=== PATIENT | male | born 1950 | race Caucasian/White ===

== ENCOUNTER 2017-08-09 03:55 | Inpatient (IN) | payer OTHER, MEDICAID ==
--- NOTE | 2017-08-09 04:25 | C.PDOC ---
History Of Present Illness The patient presents to the ED via EMS for evaluation of generalized weakness which began a few days ago. Patient states he was discharged from [facility] a few days ago. Patient states he was trying to get himself off of his couch but felt weak and lowered himself onto the floor instead. Patient was unable to get up and stayed on the floor for one day. Patient denies LOC, fever, chills, chest pain, abdominal pain. Patient has PMHx of Lung Cancer. Time Seen by Provider: 08/09/17 04:24 Chief Complaint (Nursing): Weakness/Neurological Deficit History Per: Patient, EMS History/Exam Limitations: no limitations Onset/Duration Of Symptoms: Days Current Symptoms Are (Timing): Still Present Activity At Onset Of Symptoms: Sitting Associated Symptoms Preceding Syncopal Episode: No Predromal Symptoms (Sudden Onset) Seizure Or Post-ictal Symptoms: None Fall Associated With With Symptoms: No Severity: Mild Pain Scale Rating Of: 2 Recent travel outside of the [place]: No Additional History Per: Patient, EMS - Symptoms Of CVA Recent Aspirin Use: No Current Coumadin Use?: No Recent Head Trauma: No Past Medical History Reviewed: Historical Data, Nursing Documentation, Vital Signs Vital Signs: Last Vital Signs Temp 97.6 F 08/09/17 04:14 Pulse 99 H 08/09/17 04:14 Resp 18 08/09/17 04:14 BP 82/61 L 08/09/17 04:14 Pulse Ox 97 08/09/17 05:11 - Medical History PMH: CHF Surgical History: No Surg Hx Family History: States: Unknown Family Hx - Social History Hx Alcohol Use: No Hx Substance Use: No - Immunization History Hx Tetanus Toxoid Vaccination: No Hx Influenza Vaccination: Yes Hx Pneumococcal Vaccination: No Review Of Systems Constitutional: Positive for: Weakness. Negative for: Fever, Chills Eyes: Negative for: Redness ENT: Negative for: Throat Pain Cardiovascular: Negative for: Chest Pain, Palpitations Respiratory: Negative for: Cough, Shortness of Breath Gastrointestinal: Negative for: Nausea, Vomiting, Abdominal Pain Genitourinary: Negative for: Dysuria Musculoskeletal: Negative for: Back Pain Skin: Negative for: Rash, Lesions, Jaundice, Bruising Neurological: Positive for: Weakness. Negative for: Altered Mental Status, Headache, Dizziness Psych: Negative for: Anxiety, Depression Physical Exam - Physical Exam Appears: Non-toxic, Unkempt Skin: Warm, Dry, Pale Head: Normacephalic Eye(s): bilateral: Normal Inspection Oral Mucosa: Dry Neck: Trachea Midline, Supple Chest: Symmetrical, No Deformity, No Tenderness Cardiovascular: Rhythm Irregular (irregularly irregular ), Edema Respiratory: Decreased Breath Sounds (right-side ), Rhonchi (diffuse ) Gastrointestinal/Abdominal: Soft, No Tenderness, No Guarding, No Rebound Back: No CVA Tenderness Extremity: Normal ROM, Pedal Edema (bilaterally ), Capillary Refill (less than 2 seconds ) Extremity: Bilateral: Atraumatic Pulses: Left Dorsalis Pedis: Normal, Right Dorsalis Pedis: Normal Neurological/Psych: Oriented x3, Normal Speech, Normal Cognition Gait: Unable To Assess ED Course And Treatment - Laboratory Results Result Diagrams: 08/09/17 04:49 08/09/17 04:49 ECG: Interpreted By Me, Viewed By Me ECG Rhythm: Atrial Fibrillation (92), Nonspecific Changes O2 Sat by Pulse Oximetry: 97 (on RA) Pulse Ox Interpretation: Normal - Radiology CXR: Interpreted by Me, Viewed By Me CXR Interpretation: Yes: Cardiomegaly, Other (rul lung mass, most of the righ tlung opacified). No: Fracture, Pnemothorax Progress Note: labs, bloodwork, and EKG ordered and reviewed. Patient received IV Fluids. 5:[address] sullivan icu, will come and see the patient in the ed Critical Care Time - Critical Care Note Total Time (in mins): 30 Documented critical care: time excludes all time spent performing seperately billable procedures. Disposition Discussed With : Alo Little Comment: accepted the pt on his service and took over the care at 5:52 AM Doctor Will See Patient In The: ED Counseled Patient/Family Regarding: Studies Performed, Diagnosis - Disposition Disposition: HOSPITALIZED Disposition Time: 04:24 Condition: CRITICAL Forms: [facility] (Croatian) - POA Present On Arrival: Falls Or Trauma - Clinical Impression Clinical Impression: Sepsis, Metastatic primary lung cancer, Pneumonia, UTI (urinary tract infection ), NSTEMI (non-ST elevated myocardial infarction) - Scribe Statement The provider has reviewed the documentation as recorded by the Scribe (Oralia Ward) Provider Attestation: All medical record entries made by the Scribe were at my direction and personally dictated by me. I have reviewed the chart and agree that the record accurately reflects my personal performance of the history, physical exam, medical decision making, and the department course for this patient. I have also personally directed, reviewed, and agree with the discharge instructions and disposition. Decision To Admit - Pt Status Changed To: Hospital Disposition Of: Inpatient - Admit Certification Admit to Inpatient:: After my assessment, the patient will require hospitalization for at least two midnights. This is because of the severity of symptoms shown, intensity of services needed, and/or the medical risk in this patient being treated as an outpatient. - InPatient: Physician Admission Certification: I certify that this patient requires 2 or more midnights of care for the following reason:: After my assessment, the patient will require hospitalization for at least two midnights. This is because of the severity of symptoms shown, intensity of services needed, and/or the medical risk in this patient being treated as an outpatient. - . Bed Request Type: ICU Patient Diagnosis: Sepsis, Metastatic primary lung cancer, Pneumonia, UTI (urinary tract infection )
[2017-08-09] MEDS ORDERED: Sodium Chloride 0.9% 1,000 ML IV SCH ×2 (04:30→10:30)
[2017-08-09 04:54] LABS: PLATELET COUNT 146 K/uL (130-400)
[2017-08-09 04:58] LABS: VENOUS BLOOD GAS BASE EXCESS -1.7 mmol/L (0.0-2.0); VENOUS BLOOD GAS PCO2 50 mmHg (40-60); VENOUS BLOOD PH 7.31 (7.32-7.43)
[2017-08-09 04:59] LABS: INR 2.1
[2017-08-09 05:00] LABS: CHLORIDE 98 mmol/L (98-107)
[2017-08-09 05:01] LABS: POTASSIUM 5.7 mmol/L (3.6-5.2); SODIUM 131 mmol/L (132-148)
[2017-08-09 05:03] LABS: ALB/GLOB RATIO 0.7 (1.0-2.1); AST/SGOT 33 U/L (17-59); CARBON DIOXIDE 21 mmol/L (22-30); GFR AFRICAN-AMERICAN > 60; TOTAL PROTEIN 6.2 g/dL (6.3-8.3)
[2017-08-09 05:04] LABS: RBC URINE 69 /hpf (0-3); URINE BACTERIA MANY (<OCC); URINE BILIRUBIN NEGATIVE (NEGATIVE); URINE BLOOD 1+ (NEGATIVE); URINE COLOR Amber (YELLOW); URINE GLUCOSE (UA) 1+ mg/dL (Normal); URINE HYALINE CAST >20 /lpf (0-2); URINE KETONE NEGATIVE (NEGATIVE); URINE LEUKOCYTE ESTERASE TRACE Leu/uL (Negative); URINE PROTEIN 1+ mg/dL (NEGATIVE); URINE UROBILINOGEN NORMAL mg/dL (0.2-1.0); WBC URINE 24 /hpf (0-5)
[2017-08-09 05:04] LABS: ALKALINE PHOSPHATASE 137 U/L (38-126); ALT/SGPT 21 U/L (21-72); BLOOD UREA NITROGEN 16 mg/dL (9-20); CALCIUM 7.7 mg/dl (8.6-10.4); GLUCOSE,RANDOM 107 mg/dL (75-110)
[2017-08-09 05:08] LABS: BASO # 0.1 K/uL (0.0-0.2); BASO % 0.3 % (0.0-2.0); EOS % 0.1 % (0.0-4.0); HEMATOCRIT 35.8 % (35.0-51.0); LYMPH # 0.8 K/uL (1.0-4.3); LYMPH % 2.7 % (20.0-40.0); MEAN CELL VOLUME 85.7 fL (80.0-94.0); MEAN CORPUSCULAR HEMOGLOBIN 25.5 pg (27.0-31.0); MEAN CORPUSCULAR HGB CONC 29.8 g/dL (33.0-37.0); MEAN PLATELET VOLUME 8.8 fL (7.2-11.7); MONO # 1.8 K/uL (0.0-0.8); NRBC % 0.2 % (0.0-2.0); RED CELL DISTRIBUTION WIDTH 19.5 % (11.5-14.5); WHITE BLOOD COUNT 29.3 K/uL (4.8-10.8)
[2017-08-09] MEDS ORDERED: Piperacillin/Tazobact 3.375 gm 100 ML IVPB STA (05:29)
[2017-08-09] MEDS ORDERED: Aspirin 325 mg EC Tablets PO ONE (05:37)
[2017-08-09] MEDS ORDERED: Piperacillin/Tazobact 3.375 gm 100 ML IVPB ONE (05:38)
[2017-08-09 05:46] LABS: NEUTROPHIL 87 % (50-75); REACTIVE LYMPHOCYTES 1 % (0-0); TOTAL CELLS COUNTED 100
[2017-08-09] MEDS ORDERED: Vancomycin 1 GM 1 GM/250 ML BAG IVPB STA (05:58)
[2017-08-09] MEDS ORDERED: Vancomycin 1 GM 1 GM/250 ML BAG IVPB ONE (06:02)
[2017-08-09] MEDS ORDERED: Piperacill/Tazo 3.375gm in Dex 3.375 GM/50 ML BAG IVPB SCH (07:00)
[2017-08-09] MEDS ORDERED: Vancomycin 750mg/D5W 150 ml 150 ML IVPB SCH (07:00)
--- NOTE | 2017-08-09 07:00 | CT ---
EXAM: CT Chest Without Intravenous Contrast EXAM DATE/TIME: 08/09/2017 5:05 AM CLINICAL HISTORY: 67 years old, male; Pain; Chest pain; Additional info: Mass r lung TECHNIQUE: Axial computed tomography images of the chest without intravenous contrast. All CT scans at this facility use one or more dose reduction techniques, viz.: automated exposure control; ma/kV adjustment per patient size (including targeted exams where dose is matched to indication; i.e. head); or iterative reconstruction technique. Coronal and sagittal reformatted images were created and reviewed. COMPARISON: No relevant prior studies available. FINDINGS: There is complete lack of aerated lung parenchyma in the right upper and mid lung. There is consolidation of the right upper and midlung intermixed with some areas of low attenuation. Intraluminal material is noted in the right main bronchi on image 47 at least partially accounting for the consolidation. Further evaluation could be performed with bronchoscopy. There is atelectasis/consolidation in the medial right lower lung although aerated bronchioles are seen traversing the consolidation. There is a moderate amount of right pleural fluid some of which appears loculated. Lack of ntravenous contrast prevents evaluation of the pleural lining. A small left pleural effusion is present. Hyperdensity along the anterior pleura bilaterally likely calcified plaques. Mediastinal lymph nodes are noted. No aortic aneurysm. Mild diffuse edema in the upper abdomen is noted. Numerous compression fractures in the thoracic line (T3-T8, and T10) age-indeterminate. IMPRESSION: Complete lack of aerated pulmonary tissue in the right upper and mid lungs. There is consolidation and possibly some fluid density within the right upper - mid thorax that is likely at least partially atelectatic in etiology given the presence of endobronchial material however neoplasm would certainly be possible. The lack of intravenous contrast is extremely limiting. Bilateral pleural effusions possibly loculated on the right. Atelectasis medial right lower lung. Numerous compression fractures age-indeterminate.
--- NOTE | 2017-08-09 07:05 | CP.PCM.PN ---
Subjective - Date & Time of Evaluation Date of Evaluation: 08/09/17 Time of Evaluation: 06:57 - Subjective Subjective: Assessment * Lung cancer RUL, with compressive atelectesis, pna, loculated pl effusion, on chemo, details not known, discharged 2 days back [place] [facility] onc[place] Dr. Tyrese Ward * NSTEMI, Anterior-lateral T inversion, afib * SOB, exhausted, lethargic from above * Leucocytosis, with borderline hypotension, + lactate, anasarca, dd sepsis, lung cancer, bacterimia * Therapeutic inr, pt unsure but possibly on anticoagulation, ? h/o dvt, b/l leg swelling left> Right * h/o fall at home no tenderness, swelling Plan * Empiric abx vancomycin, zosyn * Head CT r/o bleeding, if neg start anticoagulation * Venous doppler * Records from [facility] Tyrese Ward * GI/DVT prophylaxis(depending on head ct result) * ASA, betablocker, anticoagulation * Bipap * See orders for detail. Objective - Vital Signs/Intake and Output Vital Signs (last 24 hours): Temp Pulse Resp BP Pulse Ox 97.6 F 95 H 22 101/50 L 97 08/09/17 04:14 08/09/17 06:37 08/09/17 06:13 08/09/17 06:13 08/09/17 06:15 - Medications Medications: Current Medications Albuterol Sulfate (Albuterol 0.083% Inhal Kelsi (2.5 Mg/3 Ml) Ud) 2.5 mg INH RQ6 PRN PRN Reason: Wheezing Aspirin (Aspirin Chewable) 81 mg PO DAILY EVAN Budesonide (Pulmicort Respules) 0.5 mg INH RQ12 EVAN Sodium Chloride (Sodium Chloride 0.9%) 1,000 mls @ 100 mls/hr IV .Q10H EVAN Last Admin: 08/09/17 05:16 Dose: 100 mls/hr Vancomycin HCl (Vancomycin 1gm In Normal Saline Addvantage) 1 gm in 250 mls @ 166.667 mls/hr IVPB STAT STA Stop: 08/09/17 07:27 Last Admin: 08/09/17 06:25 Dose: 166.667 mls/hr Piperacillin Sod/Tazobactam Sod (Zosyn 3.375 Gm Iv Premix) 3.375 gm in 50 mls @ 100 mls/hr IVPB Q6H EVAN Vancomycin HCl (Vancocin 750mg/D5w 150 Ml) 150 mls @ 150 mls/hr IVPB Q12H EVAN Stop: 08/14/17 07:01 Metoprolol Tartrate (Lopressor) 25 mg PO BID EVAN Pantoprazole Sodium (Protonix Susp) 40 mg PO 0600 EVAN - Labs Labs: 08/09/17 04:49 08/09/17 04:49 PT 23.9 SECONDS (9.7-12.2) H 08/09/17 04:49 INR 2.1 08/09/17 04:49 APTT 63 SECONDS (21-34) H 08/09/17 04:49
--- NOTE | 2017-08-09 07:59 | RAD ---
PROCEDURE: CHEST RADIOGRAPH, 1 VIEW HISTORY: Shortness of breath COMPARISON: None available. FINDINGS: LUNGS: Near complete opacification of the right sara thorax with residual mild aeration at the right lung base. Diffuse increased interstitial lung markings throughout the left lung with some scattered nodular densities throughout the left lung. PLEURA: Moderate to large loculated right pleural effusions. Trace left pleural effusion. CARDIOVASCULAR: Normal. OSSEOUS STRUCTURES: Degenerative changes in the spine with loss of height of several vertebral bodies. VISUALIZED UPPER ABDOMEN: Normal. OTHER FINDINGS: None. IMPRESSION: Near complete opacification of the right sara thorax with residual mild aeration at the right lung base. Diffuse increased interstitial lung markings throughout the left lung with some scattered nodular densities throughout the left lung. Moderate to large loculated right pleural effusion. Trace left pleural effusion.
[2017-08-09] MEDS ORDERED: Sodium Chloride 0.9% 500 ML IV ONE ×3 (08:01→09:17)
[2017-08-09] MEDS: Budesonide 0.5 mg/2 ml Inhal Susp UD INH SCH ×2 (08:10→20:04)
--- NOTE | 2017-08-09 08:53 | CP.PCM.HP ---
<Espinoza Taylor - Last Filed: 08/09/17 08:45> History of Present Illness - History of Present Illness History of Present Illness: PGY1 Note for Dr. Little HPI: Patient is a 67 y/o male with a PMH of Lung CA who presents to the ER with a CC of LOC yesterday morning. Patient states he was feeling week and passed out. He woke up around 3pm and called an ambulance. He noticed he had loss control of his bowels and bladder. He denies having any aura before passing out. He was sitting on the couch prior to this episode. It has never happened before. He is complaining of chest pain and SOB. Denies any nausea or vomiting. He has been having fevers and chills. Home O2 makes the SOB better. He is lethargic. Patient sees Dr. Tyrese Ward for Oncology. He was recently at [facility] and discharged 2 days ago after receiving treatment for his lung cancer. Patient ambulates independently. PMH: Lung CA, Hx of clot in his R. leg PSH: None FH: none SH: denies smoking, alcohol use, drug use, lives alone Meds: unknown Allergies: none Present on Admission - Present on Admission Any Indicators Present on Admission: No History of DVT/PE: Yes History of Uncontrolled Diabetes: No Urinary Catheter: No Decubitus Ulcer Present: No History Surgical Site Infection Following: None Review of Systems - Constitutional Constitutional: As Per HPI - EENT Eyes: As Per HPI Ears: As Per HPI Nose/Mouth/Throat: As Per HPI - Cardiovascular Cardiovascular: As Per HPI - Respiratory Respiratory: As Per HPI - Gastrointestinal Gastrointestinal: As Per HPI - Genitourinary Genitourinary: As Per HPI - Reproductive: Male Reproductive:Male: As Per HPI - Musculoskeletal Musculoskeletal: As Per HPI - Integumentary Integumentary: As Per HPI - Neurological Neurological: As Per HPI - Psychiatric Psychiatric: As Per HPI - Endocrine Endocrine: As Per HPI - Hematologic/Lymphatic Hematologic: As Per HPI Past Patient History - Past Social History Smoking Status: Former Smoker - CARDIAC Hx Congestive Heart Failure: Yes - PULMONARY Hx Lung Cancer: Yes - PSYCHIATRIC Hx Substance Use: No - SURGICAL HISTORY Hx Surgeries: No - ANESTHESIA Hx Anesthesia: No Meds Allergies/Adverse Reactions: Allergies Allergy/AdvReac Type Severity Reaction Status Date / Time No Known Allergies Allergy Unverified 08/09/17 04:13 Physical Exam - Constitutional Appears: Toxic, Cachectic - Head Exam Head Exam: ATRAUMATIC, NORMAL INSPECTION, NORMOCEPHALIC - Eye Exam Eye Exam: EOMI Pupil Exam: NORMAL ACCOMODATION, PERRL - ENT Exam ENT Exam: Mucous Membranes Dry - Respiratory Exam Respiratory Exam: Wheezes (Diffuse R. Lung) - Cardiovascular Exam Cardiovascular Exam: Tachycardia, Irregular Rhythm Additional comments: afib - GI/Abdominal Exam GI & Abdominal Exam: Normal Bowel Sounds, Soft. absent: Distended, Tenderness - Extremities Exam Extremities exam: Positive for: joint swelling (L>R 2+ pitting), tenderness - Back Exam Back exam: absent: CVA tenderness (L), CVA tenderness (R) - Neurological Exam Neurological exam: Alert, Oriented x3 - Psychiatric Exam Psychiatric exam: Normal Affect, Normal Mood - Skin Skin Exam: Dry, Intact, Normal Color, Warm Results - Vital Signs Recent Vital Signs: Last Vital Signs Temp 97.6 F 08/09/17 04:14 Pulse 114 H 08/09/17 07:59 Resp 24 08/09/17 07:59 BP 86/55 L 08/09/17 07:59 Pulse Ox 96 08/09/17 07:59 - Labs Result Diagrams: 08/09/17 04:49 08/09/17 04:49 Labs: Laboratory Results - last 24 hr 08/09/17 08/09/17 08/09/17 04:30 04:32 04:49 WBC 29.3 H RBC 4.17 L Hgb 10.6 L Hct 35.8 MCV 85.7 MCH 25.5 L MCHC 29.8 L RDW 19.5 H Plt Count 146 MPV 8.8 Neut % (Auto) 90.9 H Lymph % (Auto) 2.7 L [place] % (Auto) 6.0 Eos % (Auto) 0.1 Baso % (Auto) 0.3 Neut # 26.6 H Lymph # 0.8 L [place] # 1.8 H Eos # 0.0 Baso # 0.1 Neutrophils % (Manual) 87 H Band Neutrophils % 2 Lymphocytes % (Manual) 9 L Reactive Lymphs % 1 H Monocytes % (Manual) 1 Platelet Estimate Normal PT INR APTT pO2 VBG pH VBG pCO2 VBG HCO3 VBG Total CO2 VBG O2 Sat (Calc) VBG Base Excess VBG Potassium Glucose Lactate Crit Value Called To Crit Value Called By Crit Value Read Back Blood Gas Notified Time Sodium Potassium Chloride Carbon Dioxide Anion Gap BUN Creatinine Est GFR ( Amer) Est GFR (Non-Af Amer) POC Glucose (mg/dL) 191 H Random Glucose Calcium Total Bilirubin AST ALT Alkaline Phosphatase Total Creatine Kinase Troponin I Total Protein Albumin Globulin Albumin/Globulin Ratio Lipase Venous Blood Potassium Urine Color [place] Urine Clarity Hazy Urine pH 5.0 Ur Specific [place] 1.024 Urine Protein 1+ H Urine Glucose (UA) 1+ H Urine Ketones Negative Urine Blood 1+ H Urine Nitrate Negative Urine Bilirubin Negative Urine Urobilinogen Normal Ur Leukocyte Esterase Trace Urine WBC (Auto) 24 H Urine RBC (Auto) 69 H Ur Squamous Epith Cells 1 Urine Bacteria Many H Hyaline Casts >20 H 08/09/17 08/09/17 08/09/17 04:49 04:49 04:54 WBC RBC Hgb Hct MCV MCH MCHC RDW Plt Count MPV Neut % (Auto) Lymph % (Auto) [place] % (Auto) Eos % (Auto) Baso % (Auto) Neut # Lymph # [place] # Eos # Baso # Neutrophils % (Manual) Band Neutrophils % Lymphocytes % (Manual) Reactive Lymphs % Monocytes % (Manual) Platelet Estimate PT 23.9 H INR 2.1 APTT 63 H pO2 22 L VBG pH 7.31 L VBG pCO2 50 VBG HCO3 21.8 VBG Total CO2 26.7 VBG O2 Sat (Calc) 35.0 L VBG Base Excess -1.7 L VBG Potassium 5.6 H Glucose 124 H Lactate 3.2 H Crit Value Called To Dr elder Crit Value Called By Lesly dean rt Crit Value Read Back Y Blood Gas Notified Time 457 Sodium 131 L 131.0 L Potassium 5.7 H Chloride 98 99.0 Carbon Dioxide 21 L Anion Gap 18 BUN 16 Creatinine 0.5 L Est GFR ( Amer) > 60 Est GFR (Non-Af Amer) > 60 POC Glucose (mg/dL) Random Glucose 107 Calcium 7.7 L Total Bilirubin 1.0 AST 33 ALT 21 Alkaline Phosphatase 137 H Total Creatine Kinase 132 Troponin I 0.8940 H* Total Protein 6.2 L Albumin 2.5 L Globulin 3.7 Albumin/Globulin Ratio 0.7 L Lipase < 10 L Venous Blood Potassium 5.6 H Urine Color Urine Clarity Urine pH Ur Specific [place] Urine Protein Urine Glucose (UA) Urine Ketones Urine Blood Urine Nitrate Urine Bilirubin Urine Urobilinogen Ur Leukocyte Esterase Urine WBC (Auto) Urine RBC (Auto) Ur Squamous Epith Cells Urine Bacteria Hyaline Casts Assessment & Plan - Assessment and Plan (Free Text) Assessment: Assessment * Lung cancer RUL, with compressive atelectesis, pna, loculated pl effusion, on chemo, details not known, discharged 2 days back [place] [facility] onc[place] Dr. Tyrese Ward * NSTEMI, Anterior-lateral T inversion, afib * SOB, exhausted, lethargic from above * Leucocytosis, with borderline hypotension, + lactate, anasarca, dd sepsis, lung cancer, bacterimia * Therapeutic inr, pt unsure but possibly on anticoagulation, ? h/o dvt, b/l leg swelling left> Right * h/o fall at home no tenderness, swelling Plan: Plan * Empiric abx vancomycin, zosyn * Head CT r/o bleeding, if neg start anticoagulation * Venous doppler * Records from [facility]. Tyrese Ward * GI/DVT prophylaxis(depending on head ct result) * ASA, betablocker, anticoagulation * Bipap * See orders for detail. - Date & Time Date: 08/09/17 Time: 08:45 <Alo Little P - Last Filed: 08/10/17 07:28> Results - Vital Signs Recent Vital Signs: Last Vital Signs Temp 97.6 F 08/10/17 04:00 Pulse 93 H 08/10/17 07:00 Resp 23 08/10/17 07:00 BP 85/67 L 08/10/17 06:58 Pulse Ox 97 08/10/17 06:16 - Labs Result Diagrams: 08/10/17 06:02 08/10/17 06:02 Labs: Laboratory Results - last 24 hr 08/09/17 08/09/17 08/09/17 11:17 12:41 12:41 WBC 24.1 H RBC 3.68 L Hgb 9.6 L Hct 31.2 L MCV 84.6 MCH 25.9 L MCHC 30.7 L RDW 18.7 H Plt Count 124 L D MPV 8.9 Neut % (Auto) 92.1 H Lymph % (Auto) 3.0 L [place] % (Auto) 4.5 Eos % (Auto) 0.0 Baso % (Auto) 0.4 Neut # 22.2 H Lymph # 0.7 L [place] # 1.1 H Eos # 0.0 Baso # 0.1 Neutrophils % (Manual) 92 H Band Neutrophils % 3 H Lymphocytes % (Manual) 1 L Monocytes % (Manual) 4 Platelet Estimate Slightly decreased L Hypochromasia (manual) Slight Anisocytosis (manual) Slight Puncture Site pCO2 pO2 HCO3 ABG pH ABG Total CO2 ABG O2 Saturation ABG Base Excess ABG Hemoglobin ABG Carboxyhemoglobin POC ABG HHb (Measured) ABG Methemoglobin Severiano Test ABG Potassium A-a O2 Difference Respiratory Index Hgb O2 Saturation Sodium Chloride Glucose Lactate Liter Flow FiO2 Potassium Carbon Dioxide Anion Gap BUN Creatinine Est GFR ( Amer) Est GFR (Non-Af Amer) Random Glucose Calcium Phosphorus Magnesium Total Bilirubin AST ALT Alkaline Phosphatase Total Creatine Kinase CK-MB (Mass) Troponin I, Quant Total Protein Albumin Globulin Albumin/Globulin Ratio Procalcitonin 4.98 H 13.32 H Thyroxine (T4) TSH 3rd Generation Arterial Blood Potassium 08/09/17 08/09/17 08/09/17 12:41 12:51 21:31 WBC RBC Hgb Hct MCV MCH MCHC RDW Plt Count MPV Neut % (Auto) Lymph % (Auto) [place] % (Auto) Eos % (Auto) Baso % (Auto) Neut # Lymph # [place] # Eos # Baso # Neutrophils % (Manual) Band Neutrophils % Lymphocytes % (Manual) Monocytes % (Manual) Platelet Estimate Hypochromasia (manual) Anisocytosis (manual) Puncture Site Rr pCO2 36 pO2 114 H HCO3 23.4 ABG pH 7.40 ABG Total CO2 23.4 ABG O2 Saturation 99.9 H ABG Base Excess -2.0 ABG Hemoglobin ABG Carboxyhemoglobin POC ABG HHb (Measured) ABG Methemoglobin Severiano Test Pos ABG Potassium 4.0 A-a O2 Difference 126.0 Respiratory Index 1.1 Hgb O2 Saturation Sodium 132.0 Chloride 108.0 H Glucose 127 H Lactate 1.1 Liter Flow FiO2 40.0 Potassium Carbon Dioxide Anion Gap BUN Creatinine Est GFR ( Amer) Est GFR (Non-Af Amer) Random Glucose Calcium Phosphorus Magnesium Total Bilirubin AST ALT Alkaline Phosphatase Total Creatine Kinase 95 64 CK-MB (Mass) 5.44 H 5.94 H Troponin I, Quant 0.7290 H* 0.6800 H* Total Protein Albumin Globulin Albumin/Globulin Ratio Procalcitonin Thyroxine (T4) 3.63 L TSH 3rd Generation 2.33 Arterial Blood Potassium 4.0 08/10/17 08/10/17 08/10/17 04:55 06:02 06:02 WBC 29.0 H RBC 3.89 L Hgb 10.1 L Hct 33.3 L MCV 85.5 MCH 26.0 L MCHC 30.4 L RDW 19.5 H Plt Count 164 MPV 8.9 Neut % (Auto) 93.0 H Lymph % (Auto) 2.5 L [place] % (Auto) 4.3 Eos % (Auto) 0.0 Baso % (Auto) 0.2 Neut # 27.0 H Lymph # 0.7 L [place] # 1.3 H Eos # 0.0 Baso # 0.0 Neutrophils % (Manual) Band Neutrophils % Lymphocytes % (Manual) Monocytes % (Manual) Platelet Estimate Hypochromasia (manual) Anisocytosis (manual) Puncture Site Rbrachial pCO2 38 pO2 82 HCO3 22.5 ABG pH 7.37 ABG Total CO2 23.2 ABG O2 Saturation 97.4 ABG Base Excess -3.0 L ABG Hemoglobin 10.2 L ABG Carboxyhemoglobin 2.2 H POC ABG HHb (Measured) 2.5 ABG Methemoglobin 0.9 Severiano Test Neg ABG Potassium A-a O2 Difference 156.0 Respiratory Index 1.9 Hgb O2 Saturation 94.3 L Sodium 131 L Chloride 102 Glucose Lactate Liter Flow 30.0 FiO2 40.0 Potassium 4.3 Carbon Dioxide 18 L Anion Gap 15 BUN 19 Creatinine 0.6 L Est GFR ( Amer) > 60 Est GFR (Non-Af Amer) > 60 Random Glucose 118 H Calcium 7.2 L Phosphorus 3.2 Magnesium 1.9 Total Bilirubin 0.4 AST 21 ALT 24 Alkaline Phosphatase 97 Total Creatine Kinase CK-MB (Mass) Troponin I, Quant Total Protein 5.1 L Albumin 2.3 L Globulin 2.8 Albumin/Globulin Ratio 0.8 L Procalcitonin Thyroxine (T4) TSH 3rd Generation Arterial Blood Potassium Attending/Attestation - Attestation I have personally seen and examined this patient.: Yes I have fully participated in the care of the patient.: Yes I have reviewed all pertinent clinical information: Yes Notes (Text): See note on the same day.
[2017-08-09] MEDS ORDERED: Albumin Human 25% (12.5 gm/50 ml) IV ONE ×3 (09:00→09:45)
--- NOTE | 2017-08-09 10:50 | CT ---
PROCEDURE: CT HEAD WITHOUT CONTRAST. HISTORY: fall, lung cancer COMPARISON: None available. TECHNIQUE: Axial computed tomography images were obtained through the head/brain without intravenous contrast. Radiation dose: Total exam DLP = 950 mGy-cm. This CT exam was performed using one or more of the following dose reduction techniques: Automated exposure control, adjustment of the mA and/or kV according to patient size, and/or use of iterative reconstruction technique. FINDINGS: HEMORRHAGE: Rounded foci of relative increased attenuation measuring 5 millimeter seen within the inferior right frontal lobe on series 4, image 34 with surrounding circumferential edema. This is of uncertain clinical etiology and may represent a metastatic lesion versus sequelae of trauma. Further evaluation with a pre and post-contrast enhanced MRI is recommended for further evaluation. BRAIN: See above. Scattered focal lucencies in the subcortical and periventricular white matter suggestive for chronic microvascular ischemic change. VENTRICLES: Unremarkable. No hydrocephalus. CALVARIUM: Question minimal bowing deformity of the left zygomatic arch. Correlation. PARANASAL SINUSES: Unremarkable as visualized. No significant inflammatory changes. MASTOID AIR CELLS: Unremarkable as visualized. No inflammatory changes. OTHER FINDINGS: None. IMPRESSION: 1. Rounded foci of relative increased attenuation measuring 5 millimeter seen within the inferior right frontal lobe on series 4, image 34 with surrounding circumferential edema. This is of uncertain clinical etiology and may represent a metastatic lesion versus sequelae of trauma. Further evaluation with a pre and post-contrast enhanced MRI is recommended for further evaluation. 2. Question minimal bowing deformity of the left zygomatic arch. Clinical correlation. 3. Chronic microvascular ischemic change.
[2017-08-09] MEDS: DOPamine 400mg/250ml D5W 400 MG/250 ML BAG IV PRN (12:02)
--- NOTE | 2017-08-09 12:24 | CP.PCM.PN ---
Subjective - Date & Time of Evaluation Date of Evaluation: 08/09/17 Time of Evaluation: 12:10 - Subjective Subjective: Hospitalist Progress Note Patient was seen and examined at 12:10 PM 08/09/17 ICU Bed 14B 67 year old male (PMHx of Right Lung CA being treated at [facility] by Oncologist Dr. Tyrese Ward) who was admitted for further treatment and evaluation after he lost conciousness at home. Currently upon FULL ROS: Dyspnea but refusing BiPAP Cough Chest pain on the left nonradiating NO abdominal pain NO n/v/d/c NO burning/pain with urination States that he has not had full control of his bowels and bladder recently NO paresthesias NO headache Blurriness of vision NO changes in ears/hearing Exam: General: Patient is asleep but arousable by calling his name. He appears to hav increased work of breathing and is currently on HiFlow Oxygen as he is refusing BiPAP HEENT: NCA, EOMI, PERRLA, NO cervical lymphadenopathy, NO thyromegaly, NO pharyngeal exudate/erythema, Dry oral mucosa and nasal turbinates Cardio: Irregularly Irregular Resp: Decreased breath sounds throughout the Right Lung, Decreased breath sound Left Upper Lung, Faint inspiratory crackles left basilar area: please note that this is limited by patient not taking in deep breaths GI: NO HSM, Soft, NT, NO rebound/guarding, BSx4 reduced Ext: Capillary Refill is 2 seconds, 2+ pitting edema bilateral feet to the tibial tuberosities, Pulses are strong and equal Neuro: CN II through XII are grossly intact Assessment and Plan: 1). 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 CT Head 08/09/17 shows inferior Right Frontal Lobe 5 mm increased attenuation questionable for metastasis. MRI Brain with and without contrast has been ordered Patient's sister Dedra [phone] was at bedside at the time of my exam, explains that the patient is being treated for this by Oncologist Dr. Tyrese Ward at [facility]. I called [facility] [phone] Tyrese Ward' s phone number [phone], however this number is no longer in service and this is the same number that comes up for the him upon Google Search. Patient explains that his Brother Thuan [phone] has a copy of his Living Will/Advance Directive but patient could not provide details as to his wishes and when asked did not answer. I have asked Dedra to have Thuan bring in the copy of this document. Palliative Care Consult with Nurse Vazquez Consult with Oncologist Dr. Katiana Murray for further recommendations. Records from [facility] will have to be obtained as sister Dedra [phone] explains patient was just discharged from there on 08/08/17 after an 8 days hospital stay where Dedra explains he was treated for pneumonia and pain. 2). Loculated Right Pleural Effusion Consult Diving Instructor Dr. Bradford for further recommendations Vancomycin 750 mg IV Q24H Zosyn 3.375 gm IV Q6H Consult ID Dr. Meredith Melendez 3). Elevated Troponin Could this be secondary to [place] vs secondary to AF? Explained to patient and to sister that holding anticoagulation considering the possibility of causing hemorrhage in brain given findings on CT Head as well as secondary to Anemia Consult Garden Equipment Mechanic Dr. Teresa for further recommendations 4). Seizure Secondary to possible metastasis to brain? This is certainly a possibility considering the patient's loss of consciousness and then waking up with loss of bowel and bladder control EEG ordered F/U MRI Brain with and without contrast Consult Neurology Dr. Ricci for further recommendations 5). Atrial Fibrillation Sister Dedra does not know whether patient has a history of this or not and patient could not provide information as when asked he would not answer He is rate controlled although in the high 90s for now NO anticoagulation (other than ASA) for reason mentioned in Assessment and Plan #3 6). Bilateral Leg Edema Bilateral Venous Duplex 08/09/17 is negative for DVT As per admitting H&P patient has history of Right Leg DVT 7). Hypotension Patient is on Dopamine 4 mcg/kg/min 8). Respiratory Distress Patient is currently on high flow oxygen and is refusing BiPAP Explained to both patient and sister Dedra that patient had increased work of breathing and that he would not likely be able to keep up his current breathing and that this will eventually lead to intubation/vent placement. Again patient would not state anything concerning what his wishes were. I explained that as of right now, he will be FULL CODE until we can have further clarification from the Living Will/Advance Directive that Dedra is going to have brother Thuan bring in. 9). Hx of HTN Metoprolol 25 mg PO 2x/day is placed on HOLD considering the Hypotension. 10). Prophylaxis ASA 81 mg PO 1x/day Protonix 40 mg PO 1x/day I have fully explained the details of all of the above to patient's Sister Dedra who was at the bedside. Isaak Ward D.O. Objective - Vital Signs/Intake and Output Vital Signs (last 24 hours): Temp Pulse Resp BP Pulse Ox 97.6 F 88 20 82/59 L 99 08/09/17 09:40 08/09/17 12:02 08/09/17 09:40 08/09/17 12:02 08/09/17 09:40 Intake and Output: 08/09/17 08/09/17 06:59 18:59 Intake Total 2 Balance 2 - Medications Medications: Current Medications Albuterol Sulfate (Albuterol 0.083% Inhal Kelsi (2.5 Mg/3 Ml) Ud) 2.5 mg INH RQ6 PRN PRN Reason: Wheezing Aspirin (Aspirin Chewable) 81 mg PO DAILY EVAN Last Admin: 08/09/17 08:19 Dose: Not Given Budesonide (Pulmicort Respules) 0.5 mg INH RQ12 EVAN Last Admin: 08/09/17 08:10 Dose: 0.5 mg Vancomycin HCl (Vancocin 750mg/D5w 150 Ml) 150 mls @ 150 mls/hr IVPB Q12H EVAN Stop: 08/14/17 18:01 Piperacillin Sod/Tazobactam Sod (Zosyn 3.375 Gm Iv Premix) 3.375 gm in 50 mls @ 100 mls/hr IVPB Q6 EVAN Dopamine HCl/Dextrose (Dopamine 400mg/250ml D5w) 400 mg in 250 mls @ 4.082 mls/ hr IV .Q24H PRN; Protocol; 2 MCG/KG/MIN PRN Reason: TITRATE PER MD ORDER Last Titration: 08/09/17 12:11 Dose: 3 mcg/kg/min, 6.123 mls/hr Sodium Chloride (Sodium Chloride 0.9%) 1,000 mls @ 150 mls/hr IV .Q6H40M [facility] Metoprolol Tartrate (Lopressor) 25 mg PO BID [facility] Last Admin: 08/09/17 08:19 Dose: Not Given Pantoprazole Sodium (Protonix Susp) 40 mg PO 0600 [facility] - Labs Labs: 08/09/17 04:49 08/09/17 04:49 PT 23.9 SECONDS (9.7-12.2) H 08/09/17 04:49 INR 2.1 08/09/17 04:49 APTT 63 SECONDS (21-34) H 08/09/17 04:49
[2017-08-09 12:45] LABS: MONO # 1.1 K/uL (0.0-0.8)
[2017-08-09 12:50] LABS: BASO # 0.1 K/uL (0.0-0.2); BASO % 0.4 % (0.0-2.0); HEMATOCRIT 31.2 % (35.0-51.0); LYMPH # 0.7 K/uL (1.0-4.3); MEAN CELL VOLUME 84.6 fL (80.0-94.0); MEAN CORPUSCULAR HEMOGLOBIN 25.9 pg (27.0-31.0); MEAN CORPUSCULAR HGB CONC 30.7 g/dL (33.0-37.0); MEAN PLATELET VOLUME 8.9 fL (7.2-11.7); MONO % 4.5 % (0.0-10.0); RED CELL DISTRIBUTION WIDTH 18.7 % (11.5-14.5); WHITE BLOOD COUNT 24.1 K/uL (4.8-10.8)
[2017-08-09 12:52] LABS: PLATELET COUNT 124 K/uL (130-400)
[2017-08-09 12:55] LABS: ABG ALLEN TEST POS; DRAW SITE RR
[2017-08-09 13:11] LABS: NEUTROPHIL 92 % (50-75); TOTAL CELLS COUNTED 100
[2017-08-09 13:20] LABS: T4 3.63 ug/dL (5.5-11.0)
[2017-08-09] MEDS: Piperacill/Tazo 3.375gm in Dex 3.375 GM/50 ML BAG IVPB SCH ×3 (13:30→23:14)
[2017-08-09 13:32] LABS: THYROID STIMULATING HORMONE 2.33 mIU/L (0.46-4.68)
--- NOTE | 2017-08-09 16:25 | CP.PCM.CON ---
History of Present Illness - History of Present Illness History of Present Illness: 67 year old male with a history of Stage IV NSCLC with bone metastasis s/p palliative radiotherapy to the bone, on immunotherapy (Opdivo) with Dr. Tyrese Ward, admitted after being found on the floor with incontinence The patient was recently discharged from [facility] and treted for pneumonia vs progression of malignancy per his family. The patient is currently confused and further history is per the patients family. He was initially diagnosed about 2 years ago rylee underwent chemoradiation. Later, he developed a pathologic fracture after a fall and underwent palliative radiotherapy. His family report he had been doing well up until the last few weeks. They note a depression in his appetite and energy level. Past medical history: Stage IV NSCLC Past surgical history: None Family history: Father had Hodgkins lymphoma Social history: Former tobacco, alcohol, and drug abuse. Allergies: NKA Review of systems cannot be obtained from the patient. Past Patient History - Past Social History Smoking Status: Former Smoker - CARDIAC Hx Congestive Heart Failure: Yes - PULMONARY Hx Lung Cancer: Yes - PSYCHIATRIC Hx Substance Use: No - SURGICAL HISTORY Hx Surgeries: No - ANESTHESIA Hx Anesthesia: No Meds Allergies/Adverse Reactions: Allergies Allergy/AdvReac Type Severity Reaction Status Date / Time No Known Allergies Allergy Unverified 08/09/17 04:13 - Medications Medications: Current Medications Albuterol Sulfate (Albuterol 0.083% Inhal Kelsi (2.5 Mg/3 Ml) Ud) 2.5 mg INH RQ6 PRN PRN Reason: Wheezing Aspirin (Aspirin Chewable) 81 mg PO DAILY EVAN Last Admin: 08/09/17 08:19 Dose: Not Given Budesonide (Pulmicort Respules) 0.5 mg INH RQ12 EVAN Last Admin: 08/09/17 08:10 Dose: 0.5 mg Vancomycin HCl (Vancocin 750mg/D5w 150 Ml) 150 mls @ 150 mls/hr IVPB Q12H EVAN Stop: 08/14/17 18:01 Piperacillin Sod/Tazobactam Sod (Zosyn 3.375 Gm Iv Premix) 3.375 gm in 50 mls @ 100 mls/hr IVPB Q6 EVAN Last Admin: 08/09/17 13:30 Dose: 100 mls/hr Dopamine HCl/Dextrose (Dopamine 400mg/250ml D5w) 400 mg in 250 mls @ 4.082 mls/ hr IV .Q24H PRN; Protocol; 2 MCG/KG/MIN PRN Reason: TITRATE PER MD ORDER Last Titration: 08/09/17 12:11 Dose: 3 mcg/kg/min, 6.123 mls/hr Sodium Chloride (Sodium Chloride 0.9%) 1,000 mls @ 150 mls/hr IV .Q6H40M [facility] Metoprolol Tartrate (Lopressor) 25 mg PO BID [facility] Last Admin: 08/09/17 08:19 Dose: Not Given Pantoprazole Sodium (Protonix Susp) 40 mg PO 0600 [facility] Physical Exam - Head Exam Head Exam: ATRAUMATIC - Eye Exam Eye Exam: Normal appearance - ENT Exam ENT Exam: Mucous Membranes Dry - Respiratory Exam Respiratory Exam: NORMAL BREATHING PATTERN - Cardiovascular Exam Cardiovascular Exam: +S1, +S2 - GI/Abdominal Exam GI & Abdominal Exam: Normal Bowel Sounds - Extremities Exam Extremities exam: Positive for: normal inspection - Neurological Exam Neurological exam: Altered - Psychiatric Exam Psychiatric exam: Agitated - Skin Skin Exam: Warm Results - Vital Signs Recent Vital Signs: Last Vital Signs Temp 97.6 F 08/09/17 09:40 Pulse 88 08/09/17 12:02 Resp 18 08/09/17 13:50 BP 82/59 L 08/09/17 12:02 Pulse Ox 99 08/09/17 09:40 - Labs Result Diagrams: 08/09/17 12:41 08/09/17 04:49 Labs: Laboratory Results - last 24 hr 08/09/17 08/09/17 08/09/17 04:30 04:32 04:49 WBC 29.3 H RBC 4.17 L Hgb 10.6 L Hct 35.8 MCV 85.7 MCH 25.5 L MCHC 29.8 L RDW 19.5 H Plt Count 146 MPV 8.8 Neut % (Auto) 90.9 H Lymph % (Auto) 2.7 L Brule % (Auto) 6.0 Eos % (Auto) 0.1 Baso % (Auto) 0.3 Neut # 26.6 H Lymph # 0.8 L Brule # 1.8 H Eos # 0.0 Baso # 0.1 Neutrophils % (Manual) 87 H Band Neutrophils % 2 Lymphocytes % (Manual) 9 L Reactive Lymphs % 1 H Monocytes % (Manual) 1 Platelet Estimate Normal Hypochromasia (manual) Anisocytosis (manual) PT INR APTT Puncture Site pCO2 pO2 HCO3 ABG pH ABG Total CO2 ABG O2 Saturation ABG Base Excess Severiano Test ABG Potassium VBG pH VBG pCO2 VBG HCO3 VBG Total CO2 VBG O2 Sat (Calc) VBG Base Excess VBG Potassium A-a O2 Difference Respiratory Index Glucose Lactate FiO2 Crit Value Called To Crit Value Called By Crit Value Read Back Blood Gas Notified Time Sodium Potassium Chloride Carbon Dioxide Anion Gap BUN Creatinine Est GFR ( Amer) Est GFR (Non-Af Amer) POC Glucose (mg/dL) 191 H Random Glucose Calcium Total Bilirubin AST ALT Alkaline Phosphatase Total Creatine Kinase CK-MB (Mass) Troponin I Troponin I, Quant Total Protein Albumin Globulin Albumin/Globulin Ratio Lipase Thyroxine (T4) TSH 3rd Generation Arterial Blood Potassium Venous Blood Potassium Urine Color Ana Maria Urine Clarity Hazy Urine pH 5.0 Ur Specific York 1.024 Urine Protein 1+ H Urine Glucose (UA) 1+ H Urine Ketones Negative Urine Blood 1+ H Urine Nitrate Negative Urine Bilirubin Negative Urine Urobilinogen Normal Ur Leukocyte Esterase Trace Urine WBC (Auto) 24 H Urine RBC (Auto) 69 H Ur Squamous Epith Cells 1 Urine Bacteria Many H Hyaline Casts >20 H 08/09/17 08/09/17 08/09/17 04:49 04:49 04:54 WBC RBC Hgb Hct MCV MCH MCHC RDW Plt Count MPV Neut % (Auto) Lymph % (Auto) Brule % (Auto) Eos % (Auto) Baso % (Auto) Neut # Lymph # Brule # Eos # Baso # Neutrophils % (Manual) Band Neutrophils % Lymphocytes % (Manual) Reactive Lymphs % Monocytes % (Manual) Platelet Estimate Hypochromasia (manual) Anisocytosis (manual) PT 23.9 H INR 2.1 APTT 63 H Puncture Site pCO2 pO2 22 L HCO3 ABG pH ABG Total CO2 ABG O2 Saturation ABG Base Excess Severiano Test ABG Potassium VBG pH 7.31 L VBG pCO2 50 VBG HCO3 21.8 VBG Total CO2 26.7 VBG O2 Sat (Calc) 35.0 L VBG Base Excess -1.7 L VBG Potassium 5.6 H A-a O2 Difference Respiratory Index Glucose 124 H Lactate 3.2 H FiO2 Crit Value Called To Dr elder Crit Value Called By Lesly dean rt Crit Value Read Back Y Blood Gas Notified Time 457 Sodium 131 L 131.0 L Potassium 5.7 H Chloride 98 99.0 Carbon Dioxide 21 L Anion Gap 18 BUN 16 Creatinine 0.5 L Est GFR ( Amer) > 60 Est GFR (Non-Af Amer) > 60 POC Glucose (mg/dL) Random Glucose 107 Calcium 7.7 L Total Bilirubin 1.0 AST 33 ALT 21 Alkaline Phosphatase 137 H Total Creatine Kinase 132 CK-MB (Mass) Troponin I 0.8940 H* Troponin I, Quant Total Protein 6.2 L Albumin 2.5 L Globulin 3.7 Albumin/Globulin Ratio 0.7 L Lipase < 10 L Thyroxine (T4) TSH 3rd Generation Arterial Blood Potassium Venous Blood Potassium 5.6 H Urine Color Urine Clarity Urine pH Ur Specific [place] Urine Protein Urine Glucose (UA) Urine Ketones Urine Blood Urine Nitrate Urine Bilirubin Urine Urobilinogen Ur Leukocyte Esterase Urine WBC (Auto) Urine RBC (Auto) Ur Squamous Epith Cells Urine Bacteria Hyaline Casts 08/09/17 08/09/17 08/09/17 12:41 12:41 12:51 WBC 24.1 H RBC 3.68 L Hgb 9.6 L Hct 31.2 L MCV 84.6 MCH 25.9 L MCHC 30.7 L RDW 18.7 H Plt Count 124 L D MPV 8.9 Neut % (Auto) 92.1 H Lymph % (Auto) 3.0 L Brule % (Auto) 4.5 Eos % (Auto) 0.0 Baso % (Auto) 0.4 Neut # 22.2 H Lymph # 0.7 L Brule # 1.1 H Eos # 0.0 Baso # 0.1 Neutrophils % (Manual) 92 H Band Neutrophils % 3 H Lymphocytes % (Manual) 1 L Reactive Lymphs % Monocytes % (Manual) 4 Platelet Estimate Slightly decreased L Hypochromasia (manual) Slight Anisocytosis (manual) Slight PT INR APTT Puncture Site Rr pCO2 36 pO2 114 H HCO3 23.4 ABG pH 7.40 ABG Total CO2 23.4 ABG O2 Saturation 99.9 H ABG Base Excess -2.0 Severiano Test Pos ABG Potassium 4.0 VBG pH VBG pCO2 VBG HCO3 VBG Total CO2 VBG O2 Sat (Calc) VBG Base Excess VBG Potassium A-a O2 Difference 126.0 Respiratory Index 1.1 Glucose 127 H Lactate 1.1 FiO2 40.0 Crit Value Called To Crit Value Called By Crit Value Read Back Blood Gas Notified Time Sodium 132.0 Potassium Chloride 108.0 H Carbon Dioxide Anion Gap BUN Creatinine Est GFR ( Amer) Est GFR (Non-Af Amer) POC Glucose (mg/dL) Random Glucose Calcium Total Bilirubin AST ALT Alkaline Phosphatase Total Creatine Kinase 95 CK-MB (Mass) 5.44 H Troponin I Troponin I, Quant 0.7290 H* Total Protein Albumin Globulin Albumin/Globulin Ratio Lipase Thyroxine (T4) 3.63 L TSH 3rd Generation 2.33 Arterial Blood Potassium 4.0 Venous Blood Potassium Urine Color Urine Clarity Urine pH Ur Specific York Urine Protein Urine Glucose (UA) Urine Ketones Urine Blood Urine Nitrate Urine Bilirubin Urine Urobilinogen Ur Leukocyte Esterase Urine WBC (Auto) Urine RBC (Auto) Ur Squamous Epith Cells Urine Bacteria Hyaline Casts Assessment & Plan (1) Metastatic primary lung cancer Assessment and Plan: by history the patient has bone metastasis and is s/p radiotherapy to the arm for a pathologic fracture imaging is suggestive of brain metastasis and the patient is to undergo contrast imaging and neurology evaluation on immunotherapy Opdivo per his oncologist Dr. Tyrese Ward; outpatient f/u with him Status: Acute (2) Leukocytosis Assessment and Plan: on antibiotics Status: Acute (3) Anemia Assessment and Plan: will check ferritin, retic count, b12, folate to further characterize likely element of chronic disease from malignancy Status: Acute (4) Thrombocytopenia Assessment and Plan: mild check fibrinogen to rule out DIC Status: Acute (5) Coagulopathy Assessment and Plan: will check fibrinogen to rule out DIC may have nutritional component Thank you for this interesting consult. Status: Acute
--- NOTE | 2017-08-09 16:36 | CP.PCM.CON ---
History of Present Illness - History of Present Illness History of Present Illness: CONSULT DICTATED METASTATIC LESION LOC ? SEIZURES RX KEPPRA HYDRATION MRI +/- CASI ONC TO FOLLOW RADIATION CONSULTATION Past Patient History - Past Social History Smoking Status: Former Smoker - CARDIAC Hx Congestive Heart Failure: Yes - PULMONARY Hx Lung Cancer: Yes - PSYCHIATRIC Hx Substance Use: No - SURGICAL HISTORY Hx Surgeries: No - ANESTHESIA Hx Anesthesia: No Meds Allergies/Adverse Reactions: Allergies Allergy/AdvReac Type Severity Reaction Status Date / Time No Known Allergies Allergy Unverified 08/09/17 04:13 - Medications Medications: Current Medications Albuterol Sulfate (Albuterol 0.083% Inhal Kelsi (2.5 Mg/3 Ml) Ud) 2.5 mg INH RQ6 PRN PRN Reason: Wheezing Aspirin (Aspirin Chewable) 81 mg PO DAILY [facility] Last Admin: 08/09/17 08:19 Dose: Not Given Budesonide (Pulmicort Respules) 0.5 mg INH RQ12 EVAN Last Admin: 08/09/17 08:10 Dose: 0.5 mg Vancomycin HCl (Vancocin 750mg/D5w 150 Ml) 150 mls @ 150 mls/hr IVPB Q12H [facility] Stop: 08/14/17 18:01 Piperacillin Sod/Tazobactam Sod (Zosyn 3.375 Gm Iv Premix) 3.375 gm in 50 mls @ 100 mls/hr IVPB Q6 [facility] Last Admin: 08/09/17 13:30 Dose: 100 mls/hr Dopamine HCl/Dextrose (Dopamine 400mg/250ml D5w) 400 mg in 250 mls @ 4.082 mls/ hr IV .Q24H PRN; Protocol; 2 MCG/KG/MIN PRN Reason: TITRATE PER MD ORDER Last Titration: 08/09/17 12:11 Dose: 3 mcg/kg/min, 6.123 mls/hr Sodium Chloride (Sodium Chloride 0.9%) 1,000 mls @ 150 mls/hr IV .Q6H40M [facility] Levetiracetam (Keppra) 500 mg PO BID [facility] Metoprolol Tartrate (Lopressor) 25 mg PO BID [facility] Last Admin: 08/09/17 08:19 Dose: Not Given Pantoprazole Sodium (Protonix Susp) 40 mg PO 0600 [facility] Results - Vital Signs Recent Vital Signs: Last Vital Signs Temp 97.6 F 08/09/17 09:40 Pulse 88 08/09/17 12:02 Resp 20 08/09/17 16:27 BP 82/59 L 08/09/17 12:02 Pulse Ox 99 08/09/17 09:40 - Labs Result Diagrams: 08/09/17 12:41 08/09/17 04:49 Labs: Laboratory Results - last 24 hr 08/09/17 08/09/17 08/09/17 04:30 04:32 04:49 WBC 29.3 H RBC 4.17 L Hgb 10.6 L Hct 35.8 MCV 85.7 MCH 25.5 L MCHC 29.8 L RDW 19.5 H Plt Count 146 MPV 8.8 Neut % (Auto) 90.9 H Lymph % (Auto) 2.7 L [place] % (Auto) 6.0 Eos % (Auto) 0.1 Baso % (Auto) 0.3 Neut # 26.6 H Lymph # 0.8 L [place] # 1.8 H Eos # 0.0 Baso # 0.1 Neutrophils % (Manual) 87 H Band Neutrophils % 2 Lymphocytes % (Manual) 9 L Reactive Lymphs % 1 H Monocytes % (Manual) 1 Platelet Estimate Normal Hypochromasia (manual) Anisocytosis (manual) PT INR APTT Puncture Site pCO2 pO2 HCO3 ABG pH ABG Total CO2 ABG O2 Saturation ABG Base Excess Severiano Test ABG Potassium VBG pH VBG pCO2 VBG HCO3 VBG Total CO2 VBG O2 Sat (Calc) VBG Base Excess VBG Potassium A-a O2 Difference Respiratory Index Glucose Lactate FiO2 Crit Value Called To Crit Value Called By Crit Value Read Back Blood Gas Notified Time Sodium Potassium Chloride Carbon Dioxide Anion Gap BUN Creatinine Est GFR ( Amer) Est GFR (Non-Af Amer) POC Glucose (mg/dL) 191 H Random Glucose Calcium Total Bilirubin AST ALT Alkaline Phosphatase Total Creatine Kinase CK-MB (Mass) Troponin I Troponin I, Quant Total Protein Albumin Globulin Albumin/Globulin Ratio Lipase Thyroxine (T4) TSH 3rd Generation Arterial Blood Potassium Venous Blood Potassium Urine Color Ana Maria Urine Clarity Hazy Urine pH 5.0 Ur Specific [place] 1.024 Urine Protein 1+ H Urine Glucose (UA) 1+ H Urine Ketones Negative Urine Blood 1+ H Urine Nitrate Negative Urine Bilirubin Negative Urine Urobilinogen Normal Ur Leukocyte Esterase Trace Urine WBC (Auto) 24 H Urine RBC (Auto) 69 H Ur Squamous Epith Cells 1 Urine Bacteria Many H Hyaline Casts >20 H 08/09/17 08/09/17 08/09/17 04:49 04:49 04:54 WBC RBC Hgb Hct MCV MCH MCHC RDW Plt Count MPV Neut % (Auto) Lymph % (Auto) [place] % (Auto) Eos % (Auto) Baso % (Auto) Neut # Lymph # [place] # Eos # Baso # Neutrophils % (Manual) Band Neutrophils % Lymphocytes % (Manual) Reactive Lymphs % Monocytes % (Manual) Platelet Estimate Hypochromasia (manual) Anisocytosis (manual) PT 23.9 H INR 2.1 APTT 63 H Puncture Site pCO2 pO2 22 L HCO3 ABG pH ABG Total CO2 ABG O2 Saturation ABG Base Excess Severiano Test ABG Potassium VBG pH 7.31 L VBG pCO2 50 VBG HCO3 21.8 VBG Total CO2 26.7 VBG O2 Sat (Calc) 35.0 L VBG Base Excess -1.7 L VBG Potassium 5.6 H A-a O2 Difference Respiratory Index Glucose 124 H Lactate 3.2 H FiO2 Crit Value Called To Dr elder Crit Value Called By Lesly dean rt Crit Value Read Back Y Blood Gas Notified Time 457 Sodium 131 L 131.0 L Potassium 5.7 H Chloride 98 99.0 Carbon Dioxide 21 L Anion Gap 18 BUN 16 Creatinine 0.5 L Est GFR ( Amer) > 60 Est GFR (Non-Af Amer) > 60 POC Glucose (mg/dL) Random Glucose 107 Calcium 7.7 L Total Bilirubin 1.0 AST 33 ALT 21 Alkaline Phosphatase 137 H Total Creatine Kinase 132 CK-MB (Mass) Troponin I 0.8940 H* Troponin I, Quant Total Protein 6.2 L Albumin 2.5 L Globulin 3.7 Albumin/Globulin Ratio 0.7 L Lipase < 10 L Thyroxine (T4) TSH 3rd Generation Arterial Blood Potassium Venous Blood Potassium 5.6 H Urine Color Urine Clarity Urine pH Ur Specific [place] Urine Protein Urine Glucose (UA) Urine Ketones Urine Blood Urine Nitrate Urine Bilirubin Urine Urobilinogen Ur Leukocyte Esterase Urine WBC (Auto) Urine RBC (Auto) Ur Squamous Epith Cells Urine Bacteria Hyaline Casts 08/09/17 08/09/17 08/09/17 12:41 12:41 12:51 WBC 24.1 H RBC 3.68 L Hgb 9.6 L Hct 31.2 L MCV 84.6 MCH 25.9 L MCHC 30.7 L RDW 18.7 H Plt Count 124 L D MPV 8.9 Neut % (Auto) 92.1 H Lymph % (Auto) 3.0 L [place] % (Auto) 4.5 Eos % (Auto) 0.0 Baso % (Auto) 0.4 Neut # 22.2 H Lymph # 0.7 L [place] # 1.1 H Eos # 0.0 Baso # 0.1 Neutrophils % (Manual) 92 H Band Neutrophils % 3 H Lymphocytes % (Manual) 1 L Reactive Lymphs % Monocytes % (Manual) 4 Platelet Estimate Slightly decreased L Hypochromasia (manual) Slight Anisocytosis (manual) Slight PT INR APTT Puncture Site Rr pCO2 36 pO2 114 H HCO3 23.4 ABG pH 7.40 ABG Total CO2 23.4 ABG O2 Saturation 99.9 H ABG Base Excess -2.0 Severiano Test Pos ABG Potassium 4.0 VBG pH VBG pCO2 VBG HCO3 VBG Total CO2 VBG O2 Sat (Calc) VBG Base Excess VBG Potassium A-a O2 Difference 126.0 Respiratory Index 1.1 Glucose 127 H Lactate 1.1 FiO2 40.0 Crit Value Called To Crit Value Called By Crit Value Read Back Blood Gas Notified Time Sodium 132.0 Potassium Chloride 108.0 H Carbon Dioxide Anion Gap BUN Creatinine Est GFR ( Amer) Est GFR (Non-Af Amer) POC Glucose (mg/dL) Random Glucose Calcium Total Bilirubin AST ALT Alkaline Phosphatase Total Creatine Kinase 95 CK-MB (Mass) 5.44 H Troponin I Troponin I, Quant 0.7290 H* Total Protein Albumin Globulin Albumin/Globulin Ratio Lipase Thyroxine (T4) 3.63 L TSH 3rd Generation 2.33 Arterial Blood Potassium 4.0 Venous Blood Potassium Urine Color Urine Clarity Urine pH Ur Specific [place] Urine Protein Urine Glucose (UA) Urine Ketones Urine Blood Urine Nitrate Urine Bilirubin Urine Urobilinogen Ur Leukocyte Esterase Urine WBC (Auto) Urine RBC (Auto) Ur Squamous Epith Cells Urine Bacteria Hyaline Casts
[2017-08-09] MEDS: Sodium Chloride 0.9% 1,000 ML IV SCH (17:00)
--- NOTE | 2017-08-09 17:43 | CP.PCM.PCO ---
Physician Communication Note - Physician Communication Note Physician Communication Note: Please see above
[2017-08-09] MEDS: Vancomycin 750mg/D5W 150 ml 150 ML IVPB SCH (18:50)
[2017-08-09] MEDS: levETIRAcetam 100 mg/ml (5ml) Oral Syringe PO SCH (18:51)
--- NOTE | 2017-08-09 18:52 | CARD ---
APPROVED REPORT EXAM: Two-dimensional and M-mode echocardiogram with Doppler and color Doppler. Other Information Quality : GoodRhythm : NSR INDICATION Atrial Fibrillation LUNG CANCER, ANTERIOLAT ISHE, UTI, PNEUMONIA 2D DIMENSIONS LVOT Diameter1.7 (1.8-2.4cm) M-Mode DIMENSIONS RVDd1.55 (2.1-3.2cm)Left Atrium (MM)4.87 (2.5-4.0cm) IVSd0.92 (0.7-1.1cm)Aortic Root2.69 (2.2-3.7cm) LVDd4.98 (4.0-5.6cm)Aortic Cusp Exc.0.85 (1.5-2.0cm) PWd1.33 (0.7-1.1cm)FS (%) 27 % LVDs3.65 (2.0-3.8cm)LVEF (%)52 (>50%) Aortic Valve AoV Peak Awvpmxys498.5cm/sAoV VTI71.6cmAO Peak GR.46mmHg LVOT Peak Iqcbxnxu923.2cm/sLVOT VTI23.95cmAO Mean GR.31mmHg ALLIE (VMAX)0.60sm7QKQ (VTI)0.75cm2 Mitral Valve MV E Huillgis529.6cm/sMV A Dqmksuuw47.0cm/sE/A ratio2.7 TDI E/Lateral E'0.0E/Medial E'0.0 Tricuspid Valve TR Peak Zfghkkxy360sw/sTR Peak Gr.84xxBfCTWB52fuTy LEFT VENTRICLE The left ventricle is normal size. There is mild concentric left ventricular hypertrophy. Left ventricle systolic function is borderline. Shakeel-Septal hypokinesis RIGHT VENTRICLE The right ventricle is normal size. There is normal right ventricular wall thickness. The right ventricular systolic function is normal. ATRIA The left atrium is moderately dilated. The right atrium is moderately dilated. AORTIC VALVE The aortic valve is mildly calcified. There is trace aortic regurgitation. There is moderate valvular aortic stenosis. MITRAL VALVE The mitral valve is calcified and displays decreased opening. Mitral regurgitation is mild. TRICUSPID VALVE There is moderate tricuspid regurgitation. There is moderate to severe pulmonary hypertension. GREAT VESSELS The aortic root is normal in size. <Conclusion> The left ventricle is normal size. There is mild concentric left ventricular hypertrophy. Left ventricle systolic function is borderline. Shakeel-Septal hypokinesis There is moderate valvular aortic stenosis. Mitral regurgitation is mild. There is moderate tricuspid regurgitation. There is moderate to severe pulmonary hypertension.
[2017-08-09] MEDS: Albuterol 0.083% Inhal Sol (2.5 mg/3 mL) UD INH PRN (20:39)
--- NOTE | 2017-08-09 21:15 | CP.PCM.CON ---
History of Present Illness - History of Present Illness History of Present Illness: INFECTIOUS DISEASE CONSULT; HPI; Patient is a 67 y/o male with a PMH of Lung CA who presents to the ER with a CC of LOC yesterday morning. Patient states he was feeling week and passed out. He is also c/o chest pain and SOB. Denies any nausea or vomiting. He has been having fevers and chills. Pt iis lethargicand hypotensive. Patient presently on dopamine. Patient sees Dr. Tyrese Ward for Oncology. He was recently at [facility] and discharged 2 days ago after receiving treatment for his lung cancer. On admission patient was found to have a WBC of 29.3. Also a chest x-ray showed complete opacification of the right lung with moderate to large loculated right pleural effusion. CT chest without contrast also was consistent with consolidation of the right upper and right middle lobe with moderate right pleural effusion questionable loculated and small left pleural effusion. Also medial atelectasis right lower lobe was seen with numerous compression fractures thoracic T3-T8 and T10. CT head without contrast also showed foci of increased attenuation right frontal lobe with surrounding edema questionable metastases. Chronic microvascular ischemic changes also seen. Patient presently confused and unable to give complete history. History obtained from the chart and the nursing staff. Patient was given a dose of IV vancomycin 1 g and IV Zosyn 3.375 in the ER. Patient presently on Zosyn 3.375 every 6 hourly and vancomycin 750 every 12 hourly Infectious disease consultation requested by Dr. Isaak Ward for sepsis and pneumonia. PMH: Lung CA, Hx of clot in his R. leg PSH: None FH: none SH: denies smoking, alcohol use, drug use, lives alone Meds: unknown Allergies: none Review of Systems - Constitutional Constitutional: Chills, Fever, Weakness - Cardiovascular Cardiovascular: Chest Pain, Dyspnea - Respiratory Respiratory: Cough. absent: Hemoptysis - Gastrointestinal Gastrointestinal: Fecal Incontinence. absent: Abdominal Pain, Diarrhea, Nausea , Odynophagia, Vomiting - Genitourinary Genitourinary: Urinary Incontinence - Neurological Neurological: Confusion, Syncope - Hematologic/Lymphatic Hematologic: As Per HPI. absent: Easy Bruising Past Patient History - Past Medical History & Family History Past Medical History?: Yes - Past Social History Smoking Status: Former Smoker - CARDIAC Hx Congestive Heart Failure: Yes - PULMONARY Hx Lung Cancer: Yes - NEUROLOGICAL Hx Neurological Disorder: Yes Hx Seizures: Yes (last 2011) - HEENT Hx HEENT Problems: No - RENAL Hx Chronic Kidney Disease: No - ENDOCRINE/METABOLIC Hx Endocrine Disorders: No - HEMATOLOGICAL/ONCOLOGICAL Hx Blood Disorders: Yes Hx Cancer: Yes Hx Chemotherapy: Yes - INTEGUMENTARY Hx Dermatological Problems: No - MUSCULOSKELETAL/RHEUMATOLOGICAL Hx Musculoskeletal Disorders: Yes Hx Falls: Yes - GASTROINTESTINAL Hx Gastrointestinal Disorders: No - GENITOURINARY/GYNECOLOGICAL Hx Genitourinary Disorders: No - PSYCHIATRIC Hx Substance Use: No - SURGICAL HISTORY Hx Surgeries: No - ANESTHESIA Hx Anesthesia: No Meds Allergies/Adverse Reactions: Allergies Allergy/AdvReac Type Severity Reaction Status Date / Time No Known Allergies Allergy Unverified 08/09/17 04:13 - Medications Medications: Current Medications Albuterol Sulfate (Albuterol 0.083% Inhal Kelsi (2.5 Mg/3 Ml) Ud) 2.5 mg INH RQ6 PRN PRN Reason: Wheezing Last Admin: 08/09/17 20:39 Dose: 2.5 mg Aspirin (Aspirin Chewable) 81 mg PO DAILY [facility] Last Admin: 08/09/17 08:19 Dose: Not Given Budesonide (Pulmicort Respules) 0.5 mg INH RQ12 EVAN Last Admin: 08/09/17 20:04 Dose: Not Given Heparin Sodium (Porcine) (Heparin) 5,000 units SC Q8 EVAN Vancomycin HCl (Vancocin 750mg/D5w 150 Ml) 150 mls @ 150 mls/hr IVPB Q12H [facility] Stop: 08/14/17 18:01 Last Admin: 08/09/17 18:50 Dose: 150 mls/hr Piperacillin Sod/Tazobactam Sod (Zosyn 3.375 Gm Iv Premix) 3.375 gm in 50 mls @ 100 mls/hr IVPB Q6 [facility] Last Admin: 08/09/17 17:30 Dose: 100 mls/hr Dopamine HCl/Dextrose (Dopamine 400mg/250ml D5w) 400 mg in 250 mls @ 4.082 mls/ hr IV .Q24H PRN; Protocol; 2 MCG/KG/MIN PRN Reason: TITRATE PER MD ORDER Last Titration: 08/09/17 14:00 Dose: 5 mcg/kg/min, 10.206 mls/hr Sodium Chloride (Sodium Chloride 0.9%) 1,000 mls @ 70 mls/hr IV .[id number] [facility] Last Admin: 08/09/17 17:00 Dose: 70 mls/hr Levetiracetam (Keppra) 500 mg PO BID [facility] Last Admin: 08/09/17 18:51 Dose: 500 mg Metoprolol Tartrate (Lopressor) 25 mg PO BID [facility] Last Admin: 08/09/17 08:19 Dose: Not Given Pantoprazole Sodium (Protonix Susp) 40 mg PO 0600 [facility] Physical Exam - Constitutional Appears: No Acute Distress, Confused - Head Exam Head Exam: NORMAL INSPECTION - Eye Exam Eye Exam: EOMI, PERRL - ENT Exam ENT Exam: Normal Oropharynx - Neck Exam Neck exam: Positive for: Normal Inspection. Negative for: Meningismus - Respiratory Exam Respiratory Exam: Decreased Breath Sounds (Right side.), Prolonged Expiratory Phase - Cardiovascular Exam Cardiovascular Exam: Irregular Rhythm, +S1, +S2 - GI/Abdominal Exam GI & Abdominal Exam: Normal Bowel Sounds, Soft. absent: Organomegaly - Extremities Exam Extremities exam: Positive for: pedal edema, pedal pulses present. Negative for : calf tenderness - Neurological Exam Neurological exam: Altered, CN II-XII Intact - Psychiatric Exam Psychiatric exam: Flat Affect - Skin Skin Exam: Dry, Warm Results - Vital Signs Recent Vital Signs: Last Vital Signs Temp 97.3 F L 08/09/17 11:11 Pulse 81 08/09/17 20:39 Resp 20 08/09/17 20:04 BP 82/59 L 08/09/17 12:02 Pulse Ox 100 08/09/17 11:11 - Labs Result Diagrams: 08/09/17 12:41 08/09/17 04:49 Labs: Laboratory Results - last 24 hr 08/09/17 08/09/17 08/09/17 04:30 04:32 04:49 WBC 29.3 H RBC 4.17 L Hgb 10.6 L Hct 35.8 MCV 85.7 MCH 25.5 L MCHC 29.8 L RDW 19.5 H Plt Count 146 MPV 8.8 Neut % (Auto) 90.9 H Lymph % (Auto) 2.7 L Bee % (Auto) 6.0 Eos % (Auto) 0.1 Baso % (Auto) 0.3 Neut # 26.6 H Lymph # 0.8 L Bee # 1.8 H Eos # 0.0 Baso # 0.1 Neutrophils % (Manual) 87 H Band Neutrophils % 2 Lymphocytes % (Manual) 9 L Reactive Lymphs % 1 H Monocytes % (Manual) 1 Platelet Estimate Normal Hypochromasia (manual) Anisocytosis (manual) PT INR APTT Puncture Site pCO2 pO2 HCO3 ABG pH ABG Total CO2 ABG O2 Saturation ABG Base Excess Severiano Test ABG Potassium VBG pH VBG pCO2 VBG HCO3 VBG Total CO2 VBG O2 Sat (Calc) VBG Base Excess VBG Potassium A-a O2 Difference Respiratory Index Glucose Lactate FiO2 Crit Value Called To Crit Value Called By Crit Value Read Back Blood Gas Notified Time Sodium Potassium Chloride Carbon Dioxide Anion Gap BUN Creatinine Est GFR ( Amer) Est GFR (Non-Af Amer) POC Glucose (mg/dL) 191 H Random Glucose Calcium Total Bilirubin AST ALT Alkaline Phosphatase Total Creatine Kinase CK-MB (Mass) Troponin I Troponin I, Quant Total Protein Albumin Globulin Albumin/Globulin Ratio Lipase Procalcitonin Thyroxine (T4) TSH 3rd Generation Arterial Blood Potassium Venous Blood Potassium Urine Color Ana Maria Urine Clarity Hazy Urine pH 5.0 Ur Specific [place] 1.024 Urine Protein 1+ H Urine Glucose (UA) 1+ H Urine Ketones Negative Urine Blood 1+ H Urine Nitrate Negative Urine Bilirubin Negative Urine Urobilinogen Normal Ur Leukocyte Esterase Trace Urine WBC (Auto) 24 H Urine RBC (Auto) 69 H Ur Squamous Epith Cells 1 Urine Bacteria Many H Hyaline Casts >20 H 08/09/17 08/09/17 08/09/17 04:49 04:49 04:54 WBC RBC Hgb Hct MCV MCH MCHC RDW Plt Count MPV Neut % (Auto) Lymph % (Auto) [place] % (Auto) Eos % (Auto) Baso % (Auto) Neut # Lymph # Bee # Eos # Baso # Neutrophils % (Manual) Band Neutrophils % Lymphocytes % (Manual) Reactive Lymphs % Monocytes % (Manual) Platelet Estimate Hypochromasia (manual) Anisocytosis (manual) PT 23.9 H INR 2.1 APTT 63 H Puncture Site pCO2 pO2 22 L HCO3 ABG pH ABG Total CO2 ABG O2 Saturation ABG Base Excess Severiano Test ABG Potassium VBG pH 7.31 L VBG pCO2 50 VBG HCO3 21.8 VBG Total CO2 26.7 VBG O2 Sat (Calc) 35.0 L VBG Base Excess -1.7 L VBG Potassium 5.6 H A-a O2 Difference Respiratory Index Glucose 124 H Lactate 3.2 H FiO2 Crit Value Called To Dr elder Crit Value Called By Lesly dean rt Crit Value Read Back Y Blood Gas Notified Time 457 Sodium 131 L 131.0 L Potassium 5.7 H Chloride 98 99.0 Carbon Dioxide 21 L Anion Gap 18 BUN 16 Creatinine 0.5 L Est GFR ( Amer) > 60 Est GFR (Non-Af Amer) > 60 POC Glucose (mg/dL) Random Glucose 107 Calcium 7.7 L Total Bilirubin 1.0 AST 33 ALT 21 Alkaline Phosphatase 137 H Total Creatine Kinase 132 CK-MB (Mass) Troponin I 0.8940 H* Troponin I, Quant Total Protein 6.2 L Albumin 2.5 L Globulin 3.7 Albumin/Globulin Ratio 0.7 L Lipase < 10 L Procalcitonin Thyroxine (T4) TSH 3rd Generation Arterial Blood Potassium Venous Blood Potassium 5.6 H Urine Color Urine Clarity Urine pH Ur Specific [place] Urine Protein Urine Glucose (UA) Urine Ketones Urine Blood Urine Nitrate Urine Bilirubin Urine Urobilinogen Ur Leukocyte Esterase Urine WBC (Auto) Urine RBC (Auto) Ur Squamous Epith Cells Urine Bacteria Hyaline Casts 08/09/17 08/09/17 08/09/17 11:17 12:41 12:41 WBC 24.1 H RBC 3.68 L Hgb 9.6 L Hct 31.2 L MCV 84.6 MCH 25.9 L MCHC 30.7 L RDW 18.7 H Plt Count 124 L D MPV 8.9 Neut % (Auto) 92.1 H Lymph % (Auto) 3.0 L Bee % (Auto) 4.5 Eos % (Auto) 0.0 Baso % (Auto) 0.4 Neut # 22.2 H Lymph # 0.7 L Bee # 1.1 H Eos # 0.0 Baso # 0.1 Neutrophils % (Manual) 92 H Band Neutrophils % 3 H Lymphocytes % (Manual) 1 L Reactive Lymphs % Monocytes % (Manual) 4 Platelet Estimate Slightly decreased L Hypochromasia (manual) Slight Anisocytosis (manual) Slight PT INR APTT Puncture Site pCO2 pO2 HCO3 ABG pH ABG Total CO2 ABG O2 Saturation ABG Base Excess Severiano Test ABG Potassium VBG pH VBG pCO2 VBG HCO3 VBG Total CO2 VBG O2 Sat (Calc) VBG Base Excess VBG Potassium A-a O2 Difference Respiratory Index Glucose Lactate FiO2 Crit Value Called To Crit Value Called By Crit Value Read Back Blood Gas Notified Time Sodium Potassium Chloride Carbon Dioxide Anion Gap BUN Creatinine Est GFR ( Amer) Est GFR (Non-Af Amer) POC Glucose (mg/dL) Random Glucose Calcium Total Bilirubin AST ALT Alkaline Phosphatase Total Creatine Kinase CK-MB (Mass) Troponin I Troponin I, Quant Total Protein Albumin Globulin Albumin/Globulin Ratio Lipase Procalcitonin 4.98 H 13.32 H Thyroxine (T4) TSH 3rd Generation Arterial Blood Potassium Venous Blood Potassium Urine Color Urine Clarity Urine pH Ur Specific [place] Urine Protein Urine Glucose (UA) Urine Ketones Urine Blood Urine Nitrate Urine Bilirubin Urine Urobilinogen Ur Leukocyte Esterase Urine WBC (Auto) Urine RBC (Auto) Ur Squamous Epith Cells Urine Bacteria Hyaline Casts 08/09/17 08/09/17 12:41 12:51 WBC RBC Hgb Hct MCV MCH MCHC RDW Plt Count MPV Neut % (Auto) Lymph % (Auto) Bee % (Auto) Eos % (Auto) Baso % (Auto) Neut # Lymph # Bee # Eos # Baso # Neutrophils % (Manual) Band Neutrophils % Lymphocytes % (Manual) Reactive Lymphs % Monocytes % (Manual) Platelet Estimate Hypochromasia (manual) Anisocytosis (manual) PT INR APTT Puncture Site Rr pCO2 36 pO2 114 H HCO3 23.4 ABG pH 7.40 ABG Total CO2 23.4 ABG O2 Saturation 99.9 H ABG Base Excess -2.0 Severiano Test Pos ABG Potassium 4.0 VBG pH VBG pCO2 VBG HCO3 VBG Total CO2 VBG O2 Sat (Calc) VBG Base Excess VBG Potassium A-a O2 Difference 126.0 Respiratory Index 1.1 Glucose 127 H Lactate 1.1 FiO2 40.0 Crit Value Called To Crit Value Called By Crit Value Read Back Blood Gas Notified Time Sodium 132.0 Potassium Chloride 108.0 H Carbon Dioxide Anion Gap BUN Creatinine Est GFR ( Amer) Est GFR (Non-Af Amer) POC Glucose (mg/dL) Random Glucose Calcium Total Bilirubin AST ALT Alkaline Phosphatase Total Creatine Kinase 95 CK-MB (Mass) 5.44 H Troponin I Troponin I, Quant 0.7290 H* Total Protein Albumin Globulin Albumin/Globulin Ratio Lipase Procalcitonin Thyroxine (T4) 3.63 L TSH 3rd Generation 2.33 Arterial Blood Potassium 4.0 Venous Blood Potassium Urine Color Urine Clarity Urine pH Ur Specific [place] Urine Protein Urine Glucose (UA) Urine Ketones Urine Blood Urine Nitrate Urine Bilirubin Urine Urobilinogen Ur Leukocyte Esterase Urine WBC (Auto) Urine RBC (Auto) Ur Squamous Epith Cells Urine Bacteria Hyaline Casts - Imaging and Cardiology CT scan - chest Status: Report reviewed by me (CT chest without contrast 08/09/17. Consolidation right upper lobe/right middle lobe. Moderate right pleural effusion?loculated small left pleural effusion. Mediastinal lymph nodes present. See full report.) Assessment & Plan (1) Sepsis Assessment and Plan: panculture. MRSA screen. Sputum Gram stain and culture. Continue IV Zosyn 3.375 every 8 hourly. Continue IV vancomycin 750 mg every 12 hourly. Monitor Vanco trough level prior to the fourth dose and keep between 10 and 20. Source of sepsis probably aspiration superimposed metastatic lung CA r/o urosepsis Follow-up cultures to adjust antibiotics. Status: Acute (2) Leukocytosis Assessment and Plan: patient has leukocytosis on admission WBC 29.3. Elevated pro-calcitonin 4.98. Follow-up CBC/differential in a.m. Patient on IV antibiotics. Status: Acute (3) Pneumonia Status: Acute (4) NSTEMI (non-ST elevated myocardial infarction) Assessment and Plan: patient has positive troponins. Patient also hypotensive on dopamine 4 mcg/kg as per orders. Status: Acute (5) UTI (urinary tract infection) Assessment and Plan: patient has a Calix catheter in place .UA hazy WBC 24 RBCs 69, bacteria many. Follow-up cultures to adjust antibiotics. 1 dose of amikacin 500 mg IV today, to cover for ESBL positive Enterobacterciae. 08/09/17. Status: Acute (6) Metastatic primary lung cancer Assessment and Plan: status post recent chemotherapy at [facility] . Oncology on board. Status: Acute (7) Syncope and collapse Assessment and Plan: patient seen by neurologist. CT head without contrast consistent with questionable right frontal lobe metastatic lesion and chronic microvascular ischemic changes. Patient being worked up for seizures versus metastatic brain disease. Patient for MRI of the head as per neuro. Status: Acute
--- NOTE | 2017-08-09 23:10 | CON ---
DATE: 08/09/2017 LOCATION: The patient's room ICU bed 14B REASON FOR THE CONSULTATION: Loss of consciousness. CHIEF COMPLAINT: The patient was brought into [facility] with a history of fell at home with brief period of loss of consciousness. From neurologic point of view I was called in to evaluate him for further management. HISTORY OF PRESENT ILLNESS: Mr. Espinoza Humphries is a unfortunate right-handed 67-year-old male presenting with lung cancer being treated with immunotherapy at [facility] by oncologist Dr. Ward, been admitted in the hospital for the last one week, been discharged yesterday, he went home, and at home around evening hours he went to the bathroom, he dropped on to the floor and he was on the floor for a indefinite period. No history of bowel and bladder incontinence. At the time, he woke he called 911 and he decided come to the [facility] for further management. At present he denies headache, however, he complains of pain all over the body, he needs something to calm himself down. No confusion. No visual or verbal dysfunction. He denies any focal weakness. However, he has generalized weakness related to his illness. PAST MEDICAL HISTORY: Lung cancer been diagnosed two to three years ago, been under immunotherapy. PERSONAL HISTORY: He is ex-smoker and history of alcohol use in the past. He had alcohol related seizures. REVIEW OF SYSTEMS: A 16-point review of systems being reviewed. From neurologically, loss of consciousness. MEDICATIONS: Albuterol, aspirin, dopamine, levetiracetam, metoprolol, and pantoprazole. PHYSICAL EXAMINATION VITAL SIGNS: Blood pressure 82/59, mean arterial pressure of 68, respiratory rate 18, temperature 97.6. NECK: Supple, no carotid bruit. HEART: Sounds are regular. CHEST: Fair air entry. EXTREMITIES: Distal muscle atrophy, poor hygienic skin and nails. Right leg is externally rotate. A lot of punctate hemorrhage related to his scratch ania. NEUROLOGICAL EXAMINATION: Mental status examination: Seems to be depressed. Awake, alert, and oriented to person, place and time. Speech is clear. Naming, repetition, fluency, and comprehension within normal. Cranial nerve examination: Visual field intact. Pupils are reactive to light. Extraocular movements normal. No nystagmus. No facial sensory deficits. No facial asymmetry. Hearing is normal. Tongue is midline. Good gag. Motor examination: On outstretched hand with eyes closed. Essential tremor on both hands shows a significant grade III clubbing. Right leg externally rotated. Motor examination: On outstretched hand with eyes closed. No drift noted. Deep tendon reflexes: Biceps, brachialis, triceps, 2+ on either side of right knee. Reflex left knee 2+. Both plantars are upgoing. SENSORY EXAMINATION: Respond to pain symmetrically on both sides. WORKUP: CT of the head reviewed by me showed hyperdense lesion at right frontal region with minimum fluid around consistent with possible metastatic process considering his history of lung cancer. CT of the chest showed poor expiration, poor quality, bilateral pleural effusion, atelectasis, numerous compression fractures noted probably the metastatic process. The patient also showed some fluid density within the right pleural mid thorax with athletic changes consistent with metastatic process. BLOOD WORKUP: WBC 24.1, hemoglobin 9.6, hematocrit 31.2, and platelet 124. PT 23.9, INR 2.1, PTT 63. Blood gas 7.31, PCO2 50, bicarbonate 21.8, oxygen saturation was 99.9. Sodium 131, potassium 5.7, chloride 98, bicarbonate of 21, BUN 16, creatinine is 0.5. GFR more than 60, glucose 191, calcium 7.7, alkaline phosphatase 137, troponin high. Urinalysis 1+ proteinuria, 1+ glucose. CONCLUSION: 1. Upon reviewing his history and neurological examination, Mr. 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 2. 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 RECOMMENDATION: 1. MRI of the brain with and without gadolinium. 2. EEG to rule out any paroxysmal activities. 3. Keppra is given 500 mg twice a day. I also strongly recommend the patient should have radiation consultation possible whole brain radiation therapy. The patient's case discussed with close family members as well as oncologist Dr. Murray. Joey Ricci MD [facility] # [id number]
--- NOTE | 2017-08-10 01:24 | CP.CCUPN ---
CCU Subjective - Physician Review Events Since Last Encounter (Free Text): 08/10/17 01:24 67-year-old male with a history of lung cancer metastatic. Patient recently hospitalized at [facility] with a pneumonia. Patient also had a large lung tumor right upper lung, appearing almost right lung. Complaining of pain. No chest pain. Cough and fever noted shortness of breath present. Patient is also hypotensive Past medical history: Hypertension atrial fibrillation, lung cancer smoker Allergy: No known drug allergy Family at bedside. Spoke to the brother. The understand the critical condition. Vital signs reviewed No neck vein distention noted Decreased air entry in the right lung CVS regular heart sound, no murmur noted Abdomen soft, nontender. 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 Severe aortic stenosis. Ejection fraction is 20%. Labs noted elevated troponin noted Assessment and recommendation: 67 male with metastatic lung cancer, severe aortic stenosis, low ejection fraction. Cardiomyopathy. Overall prognosis very poor Spoke to the family, but the patient is not willing to sign DNR. But overall his condition is extremely bad, prognosis very poor consider alternate to treatment CCU Objective - Vital Signs / Intake & Output Vital Signs (Last 4 hours): Vital Signs Temp Pulse Resp BP Pulse Ox 08/10/17 01:13 22 08/10/17 00:00 97.4 F L 79 29 H 97 08/09/17 23:58 92/68 L 08/09/17 23:00 83 21 99 08/09/17 22:58 104/58 L 08/09/17 22:43 29 H 08/09/17 22:00 89 29 H 136/78 93 L Intake and Output (Last 8hrs): Intake & Output 08/09/17 08/09/17 08/10/17 14:59 22:59 06:59 Intake Total 986.4 1315.3 196.2 Output Total 600 0 Balance 986.4 715.3 196.2 Intake: IV 14 Intake, IV Amount 472.4 875.3 196.2 Left Antecubital 22.4 90.3 26.2 Right Antecubital 450 785 170 Oral 500 440 0 Output: Urine 600 0 Urine, Voided 600 0 Other: # Voids Urine, Voided 0 0 # Bowel Movements 0 0 0 - Medications Active Medications: Active Medications Generic Name Dose Route Start Last Admin Trade Name Freq PRN Reason Stop Dose Admin Albuterol Sulfate 2.5 mg 08/09/17 06:54 08/09/17 20:39 Albuterol 0.083% Inhal Kelsi (2.5 Mg/3 Ml) Ud INH 2.5 mg RQ6 PRN Administration Wheezing Aspirin 81 mg 08/09/17 10:00 08/09/17 08:19 Aspirin Chewable PO Not Given DAILY EVAN Budesonide 0.5 mg 08/09/17 08:00 08/09/17 20:04 Pulmicort Respules INH Not Given RQ12 EVAN Heparin Sodium (Porcine) 5,000 units 08/09/17 22:00 08/09/17 21:48 Heparin SC 5,000 units Q8 EVAN Administration Vancomycin HCl 150 mls @ 150 mls/hr 08/09/17 18:00 08/09/17 18:50 Vancocin 750mg/D5w 150 Ml IVPB 08/14/17 18:01 150 mls/hr Q12H EVAN Administration Piperacillin Sod/Tazobactam Sod 3.375 gm in 50 mls @ 100 mls/hr 08/09/17 12: 00 08/09/17 23:14 Zosyn 3.375 Gm Iv Premix IVPB 100 mls/hr Q6 EVAN Administration Dopamine HCl/Dextrose 400 mg in 250 mls @ 4.082 mls/hr 08/09/17 10:29 14:00 Dopamine 400mg/250ml D5w IV 5 mcg/kg/min .Q24H PRN 10.206 mls/hr TITRATE PER MD ORDER Titration Protocol 2 MCG/KG/MIN Sodium Chloride 1,000 mls @ 70 mls/hr 08/09/17 17:00 08/09/17 17:00 Sodium Chloride 0.9% IV 70 mls/hr .[id number] EVAN Administration Amikacin Sulfate 500 mg/ 102 mls @ 68 mls/hr 08/10/17 02:00 Sodium Chloride IVPB Q24H EVAN Levetiracetam 500 mg 08/09/17 18:00 08/09/17 18:51 Keppra PO 500 mg BID EVAN Administration Metoprolol Tartrate 25 mg 08/09/17 10:00 08/09/17 08:19 Lopressor PO Not Given BID EVAN Pantoprazole Sodium 40 mg 08/10/17 06:00 Protonix Susp PO 0600 [facility] - Patient Studies Lab Studies: Lab Studies 08/09/17 08/09/17 08/09/17 Range/Units 21:31 12:51 12:41 WBC (4.8-10.8) K/uL RBC (4.40-5.90) Mil/uL Hgb (12.0-18.0) g/dL Hct (35.0-51.0) % MCV (80.0-94.0) fL MCH (27.0-31.0) pg MCHC (33.0-37.0) g/dL RDW (11.5-14.5) % Plt Count (130-400) K/uL MPV (7.2-11.7) fL Neut % (Auto) (50.0-75.0) % Lymph % (Auto) (20.0-40.0) % [place] % (Auto) (0.0-10.0) % Eos % (Auto) (0.0-4.0) % Baso % (Auto) (0.0-2.0) % Neut # (1.8-7.0) K/uL Lymph # (1.0-4.3) K/uL [place] # (0.0-0.8) K/uL Eos # (0.0-0.7) K/uL Baso # (0.0-0.2) K/uL Neutrophils % (Manual) (50-75) % Band Neutrophils % (0-2) % Lymphocytes % (Manual) (20-40) % Reactive Lymphs % (0-0) % Monocytes % (Manual) (0-10) % Platelet Estimate (NORMAL) Hypochromasia (manual) Anisocytosis (manual) PT (9.7-12.2) SECONDS INR APTT (21-34) SECONDS Puncture Site Rr pCO2 36 (35-45) mm/Hg pO2 114 H (30-55) mm/Hg HCO3 23.4 (21-28) mmol/L ABG pH 7.40 (7.35-7.45) ABG Total CO2 23.4 (22-28) mmol/L ABG O2 Saturation 99.9 H (95-98) % ABG Base Excess -2.0 (-2.0-3.0) mmol/L Severiano Test Pos ABG Potassium 4.0 (3.6-5.2) mmol/L VBG pH (7.32-7.43) VBG pCO2 (40-60) mmHg VBG HCO3 mmol/L VBG Total CO2 (22-28) mmol/L VBG O2 Sat (Calc) (40-65) % VBG Base Excess (0.0-2.0) mmol/L VBG Potassium (3.6-5.2) mmol/L A-a O2 Difference 126.0 mm/Hg Respiratory Index 1.1 Glucose 127 H (75-110) mg/dl Lactate 1.1 (0.7-2.1) mmol/L FiO2 40.0 % Crit Value Called To Crit Value Called By Crit Value Read Back Blood Gas Notified Time Sodium 132.0 (132-148) mmol/L Potassium (3.6-5.2) mmol/L Chloride 108.0 H (98-107) mmol/L Carbon Dioxide (22-30) mmol/L Anion Gap (10-20) BUN (9-20) mg/dL Creatinine (0.8-1.5) MG/DL Est GFR ( Amer) Est GFR (Non-Af Amer) POC Glucose (mg/dL) (65-110) mg/dL Random Glucose (75-110) mg/dL Calcium (8.6-10.4) mg/dl Total Bilirubin (0.2-1.3) mg/dL AST (17-59) U/L ALT (21-72) U/L Alkaline Phosphatase (38-126) U/L Total Creatine Kinase 64 95 (55-170) U/L CK-MB (Mass) 5.94 H 5.44 H (0.0-3.38) ng/mL Troponin I (0.00-0.120) ng/mL Troponin I, Quant 0.6800 H* 0.7290 H* (0.00-0.120) ng/mL Total Protein (6.3-8.3) g/dL Albumin (3.5-5.0) g/dL Globulin (2.2-3.9) gm/dL Albumin/Globulin Ratio (1.0-2.1) Lipase (23-300) U/L Procalcitonin (0.19-0.49) NG/ML Thyroxine (T4) 3.63 L (5.5-11.0) ug/dL TSH 3rd Generation 2.33 (0.46-4.68) mIU/L Arterial Blood Potassium 4.0 (3.6-5.2) mmol/L Venous Blood Potassium (3.6-5.2) mmol/L Urine Color (YELLOW) Urine Clarity (Clear) Urine pH (5.0-8.0) Ur Specific [place] (1.003-1.030) Urine Protein (NEGATIVE) mg/dL Urine Glucose (UA) (Normal) mg/dL Urine Ketones (NEGATIVE) mg/dL Urine Blood (NEGATIVE) Urine Nitrate (NEGATIVE) Urine Bilirubin (NEGATIVE) Urine Urobilinogen (0.2-1.0) mg/dL Ur Leukocyte Esterase (Negative) Isamar/uL Urine WBC (Auto) (0-5) /hpf Urine RBC (Auto) (0-3) /hpf Ur Squamous Epith Cells (0-5) /hpf Urine Bacteria (<OCC) Hyaline Casts (0-2) /lpf 08/09/17 08/09/17 08/09/17 Range/Units 12:41 12:41 11:17 WBC 24.1 H (4.8-10.8) K/uL RBC 3.68 L (4.40-5.90) Mil/uL Hgb 9.6 L (12.0-18.0) g/dL Hct 31.2 L (35.0-51.0) % MCV 84.6 (80.0-94.0) fL MCH 25.9 L (27.0-31.0) pg MCHC 30.7 L (33.0-37.0) g/dL RDW 18.7 H (11.5-14.5) % Plt Count 124 L D (130-400) K/uL MPV 8.9 (7.2-11.7) fL Neut % (Auto) 92.1 H (50.0-75.0) % Lymph % (Auto) 3.0 L (20.0-40.0) % [place] % (Auto) 4.5 (0.0-10.0) % Eos % (Auto) 0.0 (0.0-4.0) % Baso % (Auto) 0.4 (0.0-2.0) % Neut # 22.2 H (1.8-7.0) K/uL Lymph # 0.7 L (1.0-4.3) K/uL [place] # 1.1 H (0.0-0.8) K/uL Eos # 0.0 (0.0-0.7) K/uL Baso # 0.1 (0.0-0.2) K/uL Neutrophils % (Manual) 92 H (50-75) % Band Neutrophils % 3 H (0-2) % Lymphocytes % (Manual) 1 L (20-40) % Reactive Lymphs % (0-0) % Monocytes % (Manual) 4 (0-10) % Platelet Estimate Slightly decreased L (NORMAL) Hypochromasia (manual) Slight Anisocytosis (manual) Slight PT (9.7-12.2) SECONDS INR APTT (21-34) SECONDS Puncture Site pCO2 (35-45) mm/Hg pO2 (30-55) mm/Hg HCO3 (21-28) mmol/L ABG pH (7.35-7.45) ABG Total CO2 (22-28) mmol/L ABG O2 Saturation (95-98) % ABG Base Excess (-2.0-3.0) mmol/L Severiano Test ABG Potassium (3.6-5.2) mmol/L VBG pH (7.32-7.43) VBG pCO2 (40-60) mmHg VBG HCO3 mmol/L VBG Total CO2 (22-28) mmol/L VBG O2 Sat (Calc) (40-65) % VBG Base Excess (0.0-2.0) mmol/L VBG Potassium (3.6-5.2) mmol/L A-a O2 Difference mm/Hg Respiratory Index Glucose (75-110) mg/dl Lactate (0.7-2.1) mmol/L FiO2 % Crit Value Called To Crit Value Called By Crit Value Read Back Blood Gas Notified Time Sodium (132-148) mmol/L Potassium (3.6-5.2) mmol/L Chloride (98-107) mmol/L Carbon Dioxide (22-30) mmol/L Anion Gap (10-20) BUN (9-20) mg/dL Creatinine (0.8-1.5) MG/DL Est GFR ( Amer) Est GFR (Non-Af Amer) POC Glucose (mg/dL) (65-110) mg/dL Random Glucose (75-110) mg/dL Calcium (8.6-10.4) mg/dl Total Bilirubin (0.2-1.3) mg/dL AST (17-59) U/L ALT (21-72) U/L Alkaline Phosphatase (38-126) U/L Total Creatine Kinase (55-170) U/L CK-MB (Mass) (0.0-3.38) ng/mL Troponin I (0.00-0.120) ng/mL Troponin I, Quant (0.00-0.120) ng/mL Total Protein (6.3-8.3) g/dL Albumin (3.5-5.0) g/dL Globulin (2.2-3.9) gm/dL Albumin/Globulin Ratio (1.0-2.1) Lipase (23-300) U/L Procalcitonin 13.32 H 4.98 H (0.19-0.49) NG/ML Thyroxine (T4) (5.5-11.0) ug/dL TSH 3rd Generation (0.46-4.68) mIU/L Arterial Blood Potassium (3.6-5.2) mmol/L Venous Blood Potassium (3.6-5.2) mmol/L Urine Color (YELLOW) Urine Clarity (Clear) Urine pH (5.0-8.0) Ur Specific [place] (1.003-1.030) Urine Protein (NEGATIVE) mg/dL Urine Glucose (UA) (Normal) mg/dL Urine Ketones (NEGATIVE) mg/dL Urine Blood (NEGATIVE) Urine Nitrate (NEGATIVE) Urine Bilirubin (NEGATIVE) Urine Urobilinogen (0.2-1.0) mg/dL Ur Leukocyte Esterase (Negative) Isamar/uL Urine WBC (Auto) (0-5) /hpf Urine RBC (Auto) (0-3) /hpf Ur Squamous Epith Cells (0-5) /hpf Urine Bacteria (<OCC) Hyaline Casts (0-2) /lpf 08/09/17 08/09/17 08/09/17 Range/Units 04:54 04:49 04:49 WBC (4.8-10.8) K/uL RBC (4.40-5.90) Mil/uL Hgb (12.0-18.0) g/dL Hct (35.0-51.0) % MCV (80.0-94.0) fL MCH (27.0-31.0) pg MCHC (33.0-37.0) g/dL RDW (11.5-14.5) % Plt Count (130-400) K/uL MPV (7.2-11.7) fL Neut % (Auto) (50.0-75.0) % Lymph % (Auto) (20.0-40.0) % [place] % (Auto) (0.0-10.0) % Eos % (Auto) (0.0-4.0) % Baso % (Auto) (0.0-2.0) % Neut # (1.8-7.0) K/uL Lymph # (1.0-4.3) K/uL [place] # (0.0-0.8) K/uL Eos # (0.0-0.7) K/uL Baso # (0.0-0.2) K/uL Neutrophils % (Manual) (50-75) % Band Neutrophils % (0-2) % Lymphocytes % (Manual) (20-40) % Reactive Lymphs % (0-0) % Monocytes % (Manual) (0-10) % Platelet Estimate (NORMAL) Hypochromasia (manual) Anisocytosis (manual) PT 23.9 H (9.7-12.2) SECONDS INR 2.1 APTT 63 H (21-34) SECONDS Puncture Site pCO2 (35-45) mm/Hg pO2 22 L (30-55) mm/Hg HCO3 (21-28) mmol/L ABG pH (7.35-7.45) ABG Total CO2 (22-28) mmol/L ABG O2 Saturation (95-98) % ABG Base Excess (-2.0-3.0) mmol/L Severiano Test ABG Potassium (3.6-5.2) mmol/L VBG pH 7.31 L (7.32-7.43) VBG pCO2 50 (40-60) mmHg VBG HCO3 21.8 mmol/L VBG Total CO2 26.7 (22-28) mmol/L VBG O2 Sat (Calc) 35.0 L (40-65) % VBG Base Excess -1.7 L (0.0-2.0) mmol/L VBG Potassium 5.6 H (3.6-5.2) mmol/L A-a O2 Difference mm/Hg Respiratory Index Glucose 124 H (75-110) mg/dl Lactate 3.2 H (0.7-2.1) mmol/L FiO2 % Crit Value Called To Dr elder Crit Value Called By Lesly dean rt Crit Value Read Back Y Blood Gas Notified Time 457 Sodium 131.0 L 131 L (132-148) mmol/L Potassium 5.7 H (3.6-5.2) mmol/L Chloride 99.0 98 (98-107) mmol/L Carbon Dioxide 21 L (22-30) mmol/L Anion Gap 18 (10-20) BUN 16 (9-20) mg/dL Creatinine 0.5 L (0.8-1.5) MG/DL Est GFR ( Amer) > 60 Est GFR (Non-Af Amer) > 60 POC Glucose (mg/dL) (65-110) mg/dL Random Glucose 107 (75-110) mg/dL Calcium 7.7 L (8.6-10.4) mg/dl Total Bilirubin 1.0 (0.2-1.3) mg/dL AST 33 (17-59) U/L ALT 21 (21-72) U/L Alkaline Phosphatase 137 H (38-126) U/L Total Creatine Kinase 132 (55-170) U/L CK-MB (Mass) (0.0-3.38) ng/mL Troponin I 0.8940 H* (0.00-0.120) ng/mL Troponin I, Quant (0.00-0.120) ng/mL Total Protein 6.2 L (6.3-8.3) g/dL Albumin 2.5 L (3.5-5.0) g/dL Globulin 3.7 (2.2-3.9) gm/dL Albumin/Globulin Ratio 0.7 L (1.0-2.1) Lipase < 10 L (23-300) U/L Procalcitonin (0.19-0.49) NG/ML Thyroxine (T4) (5.5-11.0) ug/dL TSH 3rd Generation (0.46-4.68) mIU/L Arterial Blood Potassium (3.6-5.2) mmol/L Venous Blood Potassium 5.6 H (3.6-5.2) mmol/L Urine Color (YELLOW) Urine Clarity (Clear) Urine pH (5.0-8.0) Ur Specific [place] (1.003-1.030) Urine Protein (NEGATIVE) mg/dL Urine Glucose (UA) (Normal) mg/dL Urine Ketones (NEGATIVE) mg/dL Urine Blood (NEGATIVE) Urine Nitrate (NEGATIVE) Urine Bilirubin (NEGATIVE) Urine Urobilinogen (0.2-1.0) mg/dL Ur Leukocyte Esterase (Negative) Isamar/uL Urine WBC (Auto) (0-5) /hpf Urine RBC (Auto) (0-3) /hpf Ur Squamous Epith Cells (0-5) /hpf Urine Bacteria (<OCC) Hyaline Casts (0-2) /lpf 08/09/17 08/09/17 08/09/17 Range/Units 04:49 04:32 04:30 WBC 29.3 H (4.8-10.8) K/uL RBC 4.17 L (4.40-5.90) Mil/uL Hgb 10.6 L (12.0-18.0) g/dL Hct 35.8 (35.0-51.0) % MCV 85.7 (80.0-94.0) fL MCH 25.5 L (27.0-31.0) pg MCHC 29.8 L (33.0-37.0) g/dL RDW 19.5 H (11.5-14.5) % Plt Count 146 (130-400) K/uL MPV 8.8 (7.2-11.7) fL Neut % (Auto) 90.9 H (50.0-75.0) % Lymph % (Auto) 2.7 L (20.0-40.0) % [place] % (Auto) 6.0 (0.0-10.0) % Eos % (Auto) 0.1 (0.0-4.0) % Baso % (Auto) 0.3 (0.0-2.0) % Neut # 26.6 H (1.8-7.0) K/uL Lymph # 0.8 L (1.0-4.3) K/uL [place] # 1.8 H (0.0-0.8) K/uL Eos # 0.0 (0.0-0.7) K/uL Baso # 0.1 (0.0-0.2) K/uL Neutrophils % (Manual) 87 H (50-75) % Band Neutrophils % 2 (0-2) % Lymphocytes % (Manual) 9 L (20-40) % Reactive Lymphs % 1 H (0-0) % Monocytes % (Manual) 1 (0-10) % Platelet Estimate Normal (NORMAL) Hypochromasia (manual) Anisocytosis (manual) PT (9.7-12.2) SECONDS INR APTT (21-34) SECONDS Puncture Site pCO2 (35-45) mm/Hg pO2 (30-55) mm/Hg HCO3 (21-28) mmol/L ABG pH (7.35-7.45) ABG Total CO2 (22-28) mmol/L ABG O2 Saturation (95-98) % ABG Base Excess (-2.0-3.0) mmol/L Severiano Test ABG Potassium (3.6-5.2) mmol/L VBG pH (7.32-7.43) VBG pCO2 (40-60) mmHg VBG HCO3 mmol/L VBG Total CO2 (22-28) mmol/L VBG O2 Sat (Calc) (40-65) % VBG Base Excess (0.0-2.0) mmol/L VBG Potassium (3.6-5.2) mmol/L A-a O2 Difference mm/Hg Respiratory Index Glucose (75-110) mg/dl Lactate (0.7-2.1) mmol/L FiO2 % Crit Value Called To Crit Value Called By Crit Value Read Back Blood Gas Notified Time Sodium (132-148) mmol/L Potassium (3.6-5.2) mmol/L Chloride (98-107) mmol/L Carbon Dioxide (22-30) mmol/L Anion Gap (10-20) BUN (9-20) mg/dL Creatinine (0.8-1.5) MG/DL Est GFR ( Amer) Est GFR (Non-Af Amer) POC Glucose (mg/dL) 191 H (65-110) mg/dL Random Glucose (75-110) mg/dL Calcium (8.6-10.4) mg/dl Total Bilirubin (0.2-1.3) mg/dL AST (17-59) U/L ALT (21-72) U/L Alkaline Phosphatase (38-126) U/L Total Creatine Kinase (55-170) U/L CK-MB (Mass) (0.0-3.38) ng/mL Troponin I (0.00-0.120) ng/mL Troponin I, Quant (0.00-0.120) ng/mL Total Protein (6.3-8.3) g/dL Albumin (3.5-5.0) g/dL Globulin (2.2-3.9) gm/dL Albumin/Globulin Ratio (1.0-2.1) Lipase (23-300) U/L Procalcitonin (0.19-0.49) NG/ML Thyroxine (T4) (5.5-11.0) ug/dL TSH 3rd Generation (0.46-4.68) mIU/L Arterial Blood Potassium (3.6-5.2) mmol/L Venous Blood Potassium (3.6-5.2) mmol/L Urine Color [place] (YELLOW) Urine Clarity Hazy (Clear) Urine pH 5.0 (5.0-8.0) Ur Specific [place] 1.024 (1.003-1.030) Urine Protein 1+ H (NEGATIVE) mg/dL Urine Glucose (UA) 1+ H (Normal) mg/dL Urine Ketones Negative (NEGATIVE) mg/dL Urine Blood 1+ H (NEGATIVE) Urine Nitrate Negative (NEGATIVE) Urine Bilirubin Negative (NEGATIVE) Urine Urobilinogen Normal (0.2-1.0) mg/dL Ur Leukocyte Esterase Trace (Negative) Isamar/uL Urine WBC (Auto) 24 H (0-5) /hpf Urine RBC (Auto) 69 H (0-3) /hpf Ur Squamous Epith Cells 1 (0-5) /hpf Urine Bacteria Many H (<OCC) Hyaline Casts >20 H (0-2) /lpf Laboratory Results - last 24 hr 08/09/17 08/09/17 08/09/17 04:30 04:32 04:49 WBC 29.3 H RBC 4.17 L Hgb 10.6 L Hct 35.8 MCV 85.7 MCH 25.5 L MCHC 29.8 L RDW 19.5 H Plt Count 146 MPV 8.8 Neut % (Auto) 90.9 H Lymph % (Auto) 2.7 L [place] % (Auto) 6.0 Eos % (Auto) 0.1 Baso % (Auto) 0.3 Neut # 26.6 H Lymph # 0.8 L [place] # 1.8 H Eos # 0.0 Baso # 0.1 Neutrophils % (Manual) 87 H Band Neutrophils % 2 Lymphocytes % (Manual) 9 L Reactive Lymphs % 1 H Monocytes % (Manual) 1 Platelet Estimate Normal Hypochromasia (manual) Anisocytosis (manual) PT INR APTT Puncture Site pCO2 pO2 HCO3 ABG pH ABG Total CO2 ABG O2 Saturation ABG Base Excess Severiano Test ABG Potassium VBG pH VBG pCO2 VBG HCO3 VBG Total CO2 VBG O2 Sat (Calc) VBG Base Excess VBG Potassium A-a O2 Difference Respiratory Index Glucose Lactate FiO2 Crit Value Called To Crit Value Called By Crit Value Read Back Blood Gas Notified Time Sodium Potassium Chloride Carbon Dioxide Anion Gap BUN Creatinine Est GFR ( Amer) Est GFR (Non-Af Amer) POC Glucose (mg/dL) 191 H Random Glucose Calcium Total Bilirubin AST ALT Alkaline Phosphatase Total Creatine Kinase CK-MB (Mass) Troponin I Troponin I, Quant Total Protein Albumin Globulin Albumin/Globulin Ratio Lipase Procalcitonin Thyroxine (T4) TSH 3rd Generation Arterial Blood Potassium Venous Blood Potassium Urine Color [place] Urine Clarity Hazy Urine pH 5.0 Ur Specific [place] 1.024 Urine Protein 1+ H Urine Glucose (UA) 1+ H Urine Ketones Negative Urine Blood 1+ H Urine Nitrate Negative Urine Bilirubin Negative Urine Urobilinogen Normal Ur Leukocyte Esterase Trace Urine WBC (Auto) 24 H Urine RBC (Auto) 69 H Ur Squamous Epith Cells 1 Urine Bacteria Many H Hyaline Casts >20 H 08/09/17 08/09/17 08/09/17 04:49 04:49 04:54 WBC RBC Hgb Hct MCV MCH MCHC RDW Plt Count MPV Neut % (Auto) Lymph % (Auto) [place] % (Auto) Eos % (Auto) Baso % (Auto) Neut # Lymph # [place] # Eos # Baso # Neutrophils % (Manual) Band Neutrophils % Lymphocytes % (Manual) Reactive Lymphs % Monocytes % (Manual) Platelet Estimate Hypochromasia (manual) Anisocytosis (manual) PT 23.9 H INR 2.1 APTT 63 H Puncture Site pCO2 pO2 22 L HCO3 ABG pH ABG Total CO2 ABG O2 Saturation ABG Base Excess Severiano Test ABG Potassium VBG pH 7.31 L VBG pCO2 50 VBG HCO3 21.8 VBG Total CO2 26.7 VBG O2 Sat (Calc) 35.0 L VBG Base Excess -1.7 L VBG Potassium 5.6 H A-a O2 Difference Respiratory Index Glucose 124 H Lactate 3.2 H FiO2 Crit Value Called To Dr elder Crit Value Called By Lesly dean rt Crit Value Read Back Y Blood Gas Notified Time 457 Sodium 131 L 131.0 L Potassium 5.7 H Chloride 98 99.0 Carbon Dioxide 21 L Anion Gap 18 BUN 16 Creatinine 0.5 L Est GFR ( Amer) > 60 Est GFR (Non-Af Amer) > 60 POC Glucose (mg/dL) Random Glucose 107 Calcium 7.7 L Total Bilirubin 1.0 AST 33 ALT 21 Alkaline Phosphatase 137 H Total Creatine Kinase 132 CK-MB (Mass) Troponin I 0.8940 H* Troponin I, Quant Total Protein 6.2 L Albumin 2.5 L Globulin 3.7 Albumin/Globulin Ratio 0.7 L Lipase < 10 L Procalcitonin Thyroxine (T4) TSH 3rd Generation Arterial Blood Potassium Venous Blood Potassium 5.6 H Urine Color Urine Clarity Urine pH Ur Specific [place] Urine Protein Urine Glucose (UA) Urine Ketones Urine Blood Urine Nitrate Urine Bilirubin Urine Urobilinogen Ur Leukocyte Esterase Urine WBC (Auto) Urine RBC (Auto) Ur Squamous Epith Cells Urine Bacteria Hyaline Casts 08/09/17 08/09/17 08/09/17 11:17 12:41 12:41 WBC 24.1 H RBC 3.68 L Hgb 9.6 L Hct 31.2 L MCV 84.6 MCH 25.9 L MCHC 30.7 L RDW 18.7 H Plt Count 124 L D MPV 8.9 Neut % (Auto) 92.1 H Lymph % (Auto) 3.0 L [place] % (Auto) 4.5 Eos % (Auto) 0.0 Baso % (Auto) 0.4 Neut # 22.2 H Lymph # 0.7 L [place] # 1.1 H Eos # 0.0 Baso # 0.1 Neutrophils % (Manual) 92 H Band Neutrophils % 3 H Lymphocytes % (Manual) 1 L Reactive Lymphs % Monocytes % (Manual) 4 Platelet Estimate Slightly decreased L Hypochromasia (manual) Slight Anisocytosis (manual) Slight PT INR APTT Puncture Site pCO2 pO2 HCO3 ABG pH ABG Total CO2 ABG O2 Saturation ABG Base Excess Severiano Test ABG Potassium VBG pH VBG pCO2 VBG HCO3 VBG Total CO2 VBG O2 Sat (Calc) VBG Base Excess VBG Potassium A-a O2 Difference Respiratory Index Glucose Lactate FiO2 Crit Value Called To Crit Value Called By Crit Value Read Back Blood Gas Notified Time Sodium Potassium Chloride Carbon Dioxide Anion Gap BUN Creatinine Est GFR ( Amer) Est GFR (Non-Af Amer) POC Glucose (mg/dL) Random Glucose Calcium Total Bilirubin AST ALT Alkaline Phosphatase Total Creatine Kinase CK-MB (Mass) Troponin I Troponin I, Quant Total Protein Albumin Globulin Albumin/Globulin Ratio Lipase Procalcitonin 4.98 H 13.32 H Thyroxine (T4) TSH 3rd Generation Arterial Blood Potassium Venous Blood Potassium Urine Color Urine Clarity Urine pH Ur Specific [place] Urine Protein Urine Glucose (UA) Urine Ketones Urine Blood Urine Nitrate Urine Bilirubin Urine Urobilinogen Ur Leukocyte Esterase Urine WBC (Auto) Urine RBC (Auto) Ur Squamous Epith Cells Urine Bacteria Hyaline Casts 08/09/17 08/09/17 08/09/17 12:41 12:51 21:31 WBC RBC Hgb Hct MCV MCH MCHC RDW Plt Count MPV Neut % (Auto) Lymph % (Auto) [place] % (Auto) Eos % (Auto) Baso % (Auto) Neut # Lymph # [place] # Eos # Baso # Neutrophils % (Manual) Band Neutrophils % Lymphocytes % (Manual) Reactive Lymphs % Monocytes % (Manual) Platelet Estimate Hypochromasia (manual) Anisocytosis (manual) PT INR APTT Puncture Site Rr pCO2 36 pO2 114 H HCO3 23.4 ABG pH 7.40 ABG Total CO2 23.4 ABG O2 Saturation 99.9 H ABG Base Excess -2.0 Severiano Test Pos ABG Potassium 4.0 VBG pH VBG pCO2 VBG HCO3 VBG Total CO2 VBG O2 Sat (Calc) VBG Base Excess VBG Potassium A-a O2 Difference 126.0 Respiratory Index 1.1 Glucose 127 H Lactate 1.1 FiO2 40.0 Crit Value Called To Crit Value Called By Crit Value Read Back Blood Gas Notified Time Sodium 132.0 Potassium Chloride 108.0 H Carbon Dioxide Anion Gap BUN Creatinine Est GFR ( Amer) Est GFR (Non-Af Amer) POC Glucose (mg/dL) Random Glucose Calcium Total Bilirubin AST ALT Alkaline Phosphatase Total Creatine Kinase 95 64 CK-MB (Mass) 5.44 H 5.94 H Troponin I Troponin I, Quant 0.7290 H* 0.6800 H* Total Protein Albumin Globulin Albumin/Globulin Ratio Lipase Procalcitonin Thyroxine (T4) 3.63 L TSH 3rd Generation 2.33 Arterial Blood Potassium 4.0 Venous Blood Potassium Urine Color Urine Clarity Urine pH Ur Specific [place] Urine Protein Urine Glucose (UA) Urine Ketones Urine Blood Urine Nitrate Urine Bilirubin Urine Urobilinogen Ur Leukocyte Esterase Urine WBC (Auto) Urine RBC (Auto) Ur Squamous Epith Cells Urine Bacteria Hyaline Casts EKG/Cardiology Studies: Cardiology / EKG Studies 08/09/17 04:25 ELECTROCARDIOGRAM Stat Comment: Mode Of Transportation: BED Reason For Exam: Pain Fingerstick Blood Sugar Results: 191 Critical Care Progress Note - Nutrition Nutrition: Nutrition Category Date Time Status Liquid Diet [DIET] Diets 08/09/17 Breakfast Active
--- NOTE | 2017-08-10 01:24 | CP.PCM.CON ---
History of Present Illness - History of Present Illness History of Present Illness: 67-year-old male with a history of lung cancer metastatic. [facility] Patient also had a large lung tumor right upper lung, appearing almost right lung. Complaining of pain. No chest pain. Cough and fever noted shortness of breath present. Patient is also hypotensive Past medical history: Hypertension atrial fibrillation, lung cancer smoker Allergy: No known drug allergy Family at bedside. Spoke to the brother. The understand the critical condition. Vital signs reviewed No neck vein distention noted Decreased air entry in the right lung CVS regular heart sound, no murmur noted Abdomen soft, nontender. 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 Severe aortic stenosis. Ejection fraction is 20%. Labs noted elevated troponin noted Assessment and recommendation: 67 male with metastatic lung cancer, severe aortic stenosis, low ejection fraction. Cardiomyopathy. Overall prognosis very poor Spoke to the family, but the patient is not willing to sign DNR. But overall his condition is extremely bad, prognosis very poor consider alternate to treatment Past Patient History - Past Medical History & Family History Past Medical History?: Yes - Past Social History Smoking Status: Former Smoker - CARDIAC Hx Congestive Heart Failure: Yes - PULMONARY Hx Lung Cancer: Yes - NEUROLOGICAL Hx Neurological Disorder: Yes Hx Seizures: Yes (last 2011) - HEENT Hx HEENT Problems: No - RENAL Hx Chronic Kidney Disease: No - ENDOCRINE/METABOLIC Hx Endocrine Disorders: No - HEMATOLOGICAL/ONCOLOGICAL Hx Blood Disorders: Yes Hx Cancer: Yes Hx Chemotherapy: Yes - INTEGUMENTARY Hx Dermatological Problems: No - MUSCULOSKELETAL/RHEUMATOLOGICAL Hx Musculoskeletal Disorders: Yes Hx Falls: Yes - GASTROINTESTINAL Hx Gastrointestinal Disorders: No - GENITOURINARY/GYNECOLOGICAL Hx Genitourinary Disorders: No - PSYCHIATRIC Hx Substance Use: No - SURGICAL HISTORY Hx Surgeries: No - ANESTHESIA Hx Anesthesia: No Meds Allergies/Adverse Reactions: Allergies Allergy/AdvReac Type Severity Reaction Status Date / Time No Known Allergies Allergy Unverified 08/09/17 04:13 - Medications Medications: Current Medications Albuterol Sulfate (Albuterol 0.083% Inhal Kelsi (2.5 Mg/3 Ml) Ud) 2.5 mg INH RQ6 PRN PRN Reason: Wheezing Last Admin: 08/09/17 20:39 Dose: 2.5 mg Aspirin (Aspirin Chewable) 81 mg PO DAILY [facility] Last Admin: 08/09/17 08:19 Dose: Not Given Budesonide (Pulmicort Respules) 0.5 mg INH RQ12 [facility] Last Admin: 08/09/17 20:04 Dose: Not Given Heparin Sodium (Porcine) (Heparin) 5,000 units SC Q8 [facility] Last Admin: 08/09/17 21:48 Dose: 5,000 units Vancomycin HCl (Vancocin 750mg/D5w 150 Ml) 150 mls @ 150 mls/hr IVPB Q12H [facility] Stop: 08/14/17 18:01 Last Admin: 08/09/17 18:50 Dose: 150 mls/hr Piperacillin Sod/Tazobactam Sod (Zosyn 3.375 Gm Iv Premix) 3.375 gm in 50 mls @ 100 mls/hr IVPB Q6 [facility] Last Admin: 08/09/17 23:14 Dose: 100 mls/hr Dopamine HCl/Dextrose (Dopamine 400mg/250ml D5w) 400 mg in 250 mls @ 4.082 mls/ hr IV .Q24H PRN; Protocol; 2 MCG/KG/MIN PRN Reason: TITRATE PER MD ORDER Last Titration: 08/09/17 14:00 Dose: 5 mcg/kg/min, 10.206 mls/hr Sodium Chloride (Sodium Chloride 0.9%) 1,000 mls @ 70 mls/hr IV .[id number] [facility] Last Admin: 08/09/17 17:00 Dose: 70 mls/hr Amikacin Sulfate 500 mg/ (Sodium Chloride) 102 mls @ 68 mls/hr IVPB Q24H [facility] Levetiracetam (Keppra) 500 mg PO BID [facility] Last Admin: 08/09/17 18:51 Dose: 500 mg Metoprolol Tartrate (Lopressor) 25 mg PO BID [facility] Last Admin: 08/09/17 08:19 Dose: Not Given Pantoprazole Sodium (Protonix Susp) 40 mg PO 0600 [facility] Results - Vital Signs Recent Vital Signs: Last Vital Signs Temp 97.4 F L 08/10/17 00:00 Pulse 79 08/10/17 00:00 Resp 22 08/10/17 01:13 BP 92/68 L 08/09/17 23:58 Pulse Ox 97 08/10/17 00:00 - Labs Result Diagrams: 08/09/17 12:41 08/09/17 04:49 Labs: Laboratory Results - last 24 hr 08/09/17 08/09/17 08/09/17 04:30 04:32 04:49 WBC 29.3 H RBC 4.17 L Hgb 10.6 L Hct 35.8 MCV 85.7 MCH 25.5 L MCHC 29.8 L RDW 19.5 H Plt Count 146 MPV 8.8 Neut % (Auto) 90.9 H Lymph % (Auto) 2.7 L [place] % (Auto) 6.0 Eos % (Auto) 0.1 Baso % (Auto) 0.3 Neut # 26.6 H Lymph # 0.8 L [place] # 1.8 H Eos # 0.0 Baso # 0.1 Neutrophils % (Manual) 87 H Band Neutrophils % 2 Lymphocytes % (Manual) 9 L Reactive Lymphs % 1 H Monocytes % (Manual) 1 Platelet Estimate Normal Hypochromasia (manual) Anisocytosis (manual) PT INR APTT Puncture Site pCO2 pO2 HCO3 ABG pH ABG Total CO2 ABG O2 Saturation ABG Base Excess Severiano Test ABG Potassium VBG pH VBG pCO2 VBG HCO3 VBG Total CO2 VBG O2 Sat (Calc) VBG Base Excess VBG Potassium A-a O2 Difference Respiratory Index Glucose Lactate FiO2 Crit Value Called To Crit Value Called By Crit Value Read Back Blood Gas Notified Time Sodium Potassium Chloride Carbon Dioxide Anion Gap BUN Creatinine Est GFR ( Amer) Est GFR (Non-Af Amer) POC Glucose (mg/dL) 191 H Random Glucose Calcium Total Bilirubin AST ALT Alkaline Phosphatase Total Creatine Kinase CK-MB (Mass) Troponin I Troponin I, Quant Total Protein Albumin Globulin Albumin/Globulin Ratio Lipase Procalcitonin Thyroxine (T4) TSH 3rd Generation Arterial Blood Potassium Venous Blood Potassium Urine Color Ana Maria Urine Clarity Hazy Urine pH 5.0 Ur Specific [place] 1.024 Urine Protein 1+ H Urine Glucose (UA) 1+ H Urine Ketones Negative Urine Blood 1+ H Urine Nitrate Negative Urine Bilirubin Negative Urine Urobilinogen Normal Ur Leukocyte Esterase Trace Urine WBC (Auto) 24 H Urine RBC (Auto) 69 H Ur Squamous Epith Cells 1 Urine Bacteria Many H Hyaline Casts >20 H 08/09/17 08/09/17 08/09/17 04:49 04:49 04:54 WBC RBC Hgb Hct MCV MCH MCHC RDW Plt Count MPV Neut % (Auto) Lymph % (Auto) [place] % (Auto) Eos % (Auto) Baso % (Auto) Neut # Lymph # [place] # Eos # Baso # Neutrophils % (Manual) Band Neutrophils % Lymphocytes % (Manual) Reactive Lymphs % Monocytes % (Manual) Platelet Estimate Hypochromasia (manual) Anisocytosis (manual) PT 23.9 H INR 2.1 APTT 63 H Puncture Site pCO2 pO2 22 L HCO3 ABG pH ABG Total CO2 ABG O2 Saturation ABG Base Excess Severiano Test ABG Potassium VBG pH 7.31 L VBG pCO2 50 VBG HCO3 21.8 VBG Total CO2 26.7 VBG O2 Sat (Calc) 35.0 L VBG Base Excess -1.7 L VBG Potassium 5.6 H A-a O2 Difference Respiratory Index Glucose 124 H Lactate 3.2 H FiO2 Crit Value Called To Dr elder Crit Value Called By Lesly dean rt Crit Value Read Back Y Blood Gas Notified Time 457 Sodium 131 L 131.0 L Potassium 5.7 H Chloride 98 99.0 Carbon Dioxide 21 L Anion Gap 18 BUN 16 Creatinine 0.5 L Est GFR ( Amer) > 60 Est GFR (Non-Af Amer) > 60 POC Glucose (mg/dL) Random Glucose 107 Calcium 7.7 L Total Bilirubin 1.0 AST 33 ALT 21 Alkaline Phosphatase 137 H Total Creatine Kinase 132 CK-MB (Mass) Troponin I 0.8940 H* Troponin I, Quant Total Protein 6.2 L Albumin 2.5 L Globulin 3.7 Albumin/Globulin Ratio 0.7 L Lipase < 10 L Procalcitonin Thyroxine (T4) TSH 3rd Generation Arterial Blood Potassium Venous Blood Potassium 5.6 H Urine Color Urine Clarity Urine pH Ur Specific [place] Urine Protein Urine Glucose (UA) Urine Ketones Urine Blood Urine Nitrate Urine Bilirubin Urine Urobilinogen Ur Leukocyte Esterase Urine WBC (Auto) Urine RBC (Auto) Ur Squamous Epith Cells Urine Bacteria Hyaline Casts 08/09/17 08/09/17 08/09/17 11:17 12:41 12:41 WBC 24.1 H RBC 3.68 L Hgb 9.6 L Hct 31.2 L MCV 84.6 MCH 25.9 L MCHC 30.7 L RDW 18.7 H Plt Count 124 L D MPV 8.9 Neut % (Auto) 92.1 H Lymph % (Auto) 3.0 L [place] % (Auto) 4.5 Eos % (Auto) 0.0 Baso % (Auto) 0.4 Neut # 22.2 H Lymph # 0.7 L [place] # 1.1 H Eos # 0.0 Baso # 0.1 Neutrophils % (Manual) 92 H Band Neutrophils % 3 H Lymphocytes % (Manual) 1 L Reactive Lymphs % Monocytes % (Manual) 4 Platelet Estimate Slightly decreased L Hypochromasia (manual) Slight Anisocytosis (manual) Slight PT INR APTT Puncture Site pCO2 pO2 HCO3 ABG pH ABG Total CO2 ABG O2 Saturation ABG Base Excess Severiano Test ABG Potassium VBG pH VBG pCO2 VBG HCO3 VBG Total CO2 VBG O2 Sat (Calc) VBG Base Excess VBG Potassium A-a O2 Difference Respiratory Index Glucose Lactate FiO2 Crit Value Called To Crit Value Called By Crit Value Read Back Blood Gas Notified Time Sodium Potassium Chloride Carbon Dioxide Anion Gap BUN Creatinine Est GFR ( Amer) Est GFR (Non-Af Amer) POC Glucose (mg/dL) Random Glucose Calcium Total Bilirubin AST ALT Alkaline Phosphatase Total Creatine Kinase CK-MB (Mass) Troponin I Troponin I, Quant Total Protein Albumin Globulin Albumin/Globulin Ratio Lipase Procalcitonin 4.98 H 13.32 H Thyroxine (T4) TSH 3rd Generation Arterial Blood Potassium Venous Blood Potassium Urine Color Urine Clarity Urine pH Ur Specific [place] Urine Protein Urine Glucose (UA) Urine Ketones Urine Blood Urine Nitrate Urine Bilirubin Urine Urobilinogen Ur Leukocyte Esterase Urine WBC (Auto) Urine RBC (Auto) Ur Squamous Epith Cells Urine Bacteria Hyaline Casts 08/09/17 08/09/17 08/09/17 12:41 12:51 21:31 WBC RBC Hgb Hct MCV MCH MCHC RDW Plt Count MPV Neut % (Auto) Lymph % (Auto) [place] % (Auto) Eos % (Auto) Baso % (Auto) Neut # Lymph # [place] # Eos # Baso # Neutrophils % (Manual) Band Neutrophils % Lymphocytes % (Manual) Reactive Lymphs % Monocytes % (Manual) Platelet Estimate Hypochromasia (manual) Anisocytosis (manual) PT INR APTT Puncture Site Rr pCO2 36 pO2 114 H HCO3 23.4 ABG pH 7.40 ABG Total CO2 23.4 ABG O2 Saturation 99.9 H ABG Base Excess -2.0 Severiano Test Pos ABG Potassium 4.0 VBG pH VBG pCO2 VBG HCO3 VBG Total CO2 VBG O2 Sat (Calc) VBG Base Excess VBG Potassium A-a O2 Difference 126.0 Respiratory Index 1.1 Glucose 127 H Lactate 1.1 FiO2 40.0 Crit Value Called To Crit Value Called By Crit Value Read Back Blood Gas Notified Time Sodium 132.0 Potassium Chloride 108.0 H Carbon Dioxide Anion Gap BUN Creatinine Est GFR ( Amer) Est GFR (Non-Af Amer) POC Glucose (mg/dL) Random Glucose Calcium Total Bilirubin AST ALT Alkaline Phosphatase Total Creatine Kinase 95 64 CK-MB (Mass) 5.44 H 5.94 H Troponin I Troponin I, Quant 0.7290 H* 0.6800 H* Total Protein Albumin Globulin Albumin/Globulin Ratio Lipase Procalcitonin Thyroxine (T4) 3.63 L TSH 3rd Generation 2.33 Arterial Blood Potassium 4.0 Venous Blood Potassium Urine Color Urine Clarity Urine pH Ur Specific [place] Urine Protein Urine Glucose (UA) Urine Ketones Urine Blood Urine Nitrate Urine Bilirubin Urine Urobilinogen Ur Leukocyte Esterase Urine WBC (Auto) Urine RBC (Auto) Ur Squamous Epith Cells Urine Bacteria Hyaline Casts
[2017-08-10] MEDS: Albuterol 0.083% Inhal Sol (2.5 mg/3 mL) UD INH PRN ×4 (02:44→19:35)
[2017-08-10] MEDS: Piperacill/Tazo 3.375gm in Dex 3.375 GM/50 ML BAG IVPB SCH ×4 (05:09→23:30)
[2017-08-10] MEDS: Vancomycin 750mg/D5W 150 ml 150 ML IVPB SCH ×2 (05:10→17:30)
[2017-08-10] MEDS: Pantoprazole 40 mg Susp UD PO SCH (05:12)
[2017-08-10 05:27] LABS: ABG ALLEN TEST NEG; ARTERIAL BLOOD HGB O2 SAT 94.3 % (95.0-98.0); CARBOXYHEMOGLOBIN 2.2 % (0.5-1.5); DRAW SITE RBRACHIAL; HHB 2.5 % (0.0-5.0); METHEMOGLOBIN 0.9 % (0.0-3.0)
[2017-08-10 06:08] LABS: BASO % 0.2 % (0.0-2.0); HEMATOCRIT 33.3 % (35.0-51.0); LYMPH # 0.7 K/uL (1.0-4.3); LYMPH % 2.5 % (20.0-40.0); MEAN CELL VOLUME 85.5 fL (80.0-94.0); MEAN CORPUSCULAR HGB CONC 30.4 g/dL (33.0-37.0); MEAN PLATELET VOLUME 8.9 fL (7.2-11.7); MONO # 1.3 K/uL (0.0-0.8); MONO % 4.3 % (0.0-10.0); PLATELET COUNT 164 K/uL (130-400); RED CELL DISTRIBUTION WIDTH 19.5 % (11.5-14.5)
[2017-08-10] MEDS: DOPamine 400mg/250ml D5W 400 MG/250 ML BAG IV PRN (06:16)
[2017-08-10 06:21] LABS: ALB/GLOB RATIO 0.8 (1.0-2.1); ALKALINE PHOSPHATASE 97 U/L (38-126); ALT/SGPT 24 U/L (21-72); AST/SGOT 21 U/L (17-59); BILIRUBIN,TOTAL 0.4 mg/dL (0.2-1.3); BLOOD UREA NITROGEN 19 mg/dL (9-20); CALCIUM 7.2 mg/dl (8.6-10.4); CARBON DIOXIDE 18 mmol/L (22-30); CHLORIDE 102 mmol/L (98-107); GFR AFRICAN-AMERICAN > 60; GLUCOSE,RANDOM 118 mg/dL (75-110); MAGNESIUM 1.9 mg/dL (1.6-2.3); PHOSPHOROUS 3.2 mg/dL (2.5-4.5); POTASSIUM 4.3 mmol/L (3.6-5.2); SODIUM 131 mmol/L (132-148); TOTAL PROTEIN 5.1 g/dL (6.3-8.3)
[2017-08-10] MEDS: Sodium Chloride 0.9% 1,000 ML IV SCH ×2 (06:23→23:46)
[2017-08-10] MEDS: Budesonide 0.5 mg/2 ml Inhal Susp UD INH SCH ×2 (07:46→19:35)
--- NOTE | 2017-08-10 07:48 | CP.PCM.CON ---
History of Present Illness - History of Present Illness History of Present Illness: Patient seen and evaluated Sepsis Non ST elevation SC Severe Systolic CHF (EF 25-30%) Metastatic CA Pressors for BP support Reduce IV fluids Given Metastatic Ca and Poor Cardiac status teacher private prognosis is poor HPI: Patient is a 67 y/o male with a PMH of Lung CA who presents to the ER with a CC of LOC yesterday morning. Patient states he was feeling week and passed out. He woke up around 3pm and called an ambulance. He noticed he had loss control of his bowels and bladder. He denies having any aura before passing out. He was sitting on the couch prior to this episode. It has never happened before. He is complaining of chest pain and SOB. Denies any nausea or vomiting. He has been having fevers and chills. Home O2 makes the SOB better. He is lethargic. Patient sees Dr. Tyrese Ward for Oncology. He was recently at [facility] [place] and discharged 2 days ago after receiving treatment for his lung cancer. Patient ambulates independently. PMH: Lung CA, Hx of clot in his R. leg PSH: None FH: none SH: denies smoking, alcohol use, drug use, lives alone Meds: unknown Allergies: none Present on Admission - Present on Admission Any Indicators Present on Admission: No History of DVT/PE: Yes History of Uncontrolled Diabetes: No Urinary Catheter: No Decubitus Ulcer Present: No History Surgical Site Infection Following: None Review of Systems - Constitutional Constitutional: As Per HPI - EENT Eyes: As Per HPI Ears: As Per HPI Nose/Mouth/Throat: As Per HPI - Cardiovascular Cardiovascular: As Per HPI - Respiratory Respiratory: As Per HPI - Gastrointestinal Gastrointestinal: As Per HPI - Genitourinary Genitourinary: As Per HPI - Reproductive: Male Reproductive:Male: As Per HPI - Musculoskeletal Musculoskeletal: As Per HPI - Integumentary Integumentary: As Per HPI - Neurological Neurological: As Per HPI - Psychiatric Psychiatric: As Per HPI - Endocrine Endocrine: As Per HPI - Hematologic/Lymphatic Hematologic: As Per HPI Meds Allergies/Adverse Reactions: Allergies Allergy/AdvReac Type Severity Reaction Status Date / Time No Known Allergies Allergy Unverified 08/09/17 04:13 Physical Exam - Constitutional Appears: Toxic, Cachectic - Head Exam Head Exam: ATRAUMATIC, NORMAL INSPECTION, NORMOCEPHALIC - Eye Exam Eye Exam: EOMI Pupil Exam: NORMAL ACCOMODATION, PERRL - ENT Exam ENT Exam: Mucous Membranes Dry - Respiratory Exam Respiratory Exam: Wheezes (Diffuse R. Lung) - Cardiovascular Exam Cardiovascular Exam: Tachycardia, Irregular Rhythm Additional comments: afib - GI/Abdominal Exam GI & Abdominal Exam: Normal Bowel Sounds, Soft. absent: Distended, Tenderness - Extremities Exam Extremities exam: Positive for: joint swelling (L>R 2+ pitting), tenderness - Back Exam Back exam: absent: CVA tenderness (L), CVA tenderness (R) - Neurological Exam Neurological exam: Alert, Oriented x3 - Psychiatric Exam Psychiatric exam: Normal Affect, Normal Mood - Skin Skin Exam: Dry, Intact, Normal Color, Warm Past Patient History - Past Medical History & Family History Past Medical History?: Yes - Past Social History Smoking Status: Former Smoker - CARDIAC Hx Congestive Heart Failure: Yes - PULMONARY Hx Lung Cancer: Yes - NEUROLOGICAL Hx Neurological Disorder: Yes Hx Seizures: Yes (last 2011) - HEENT Hx HEENT Problems: No - RENAL Hx Chronic Kidney Disease: No - ENDOCRINE/METABOLIC Hx Endocrine Disorders: No - HEMATOLOGICAL/ONCOLOGICAL Hx Blood Disorders: Yes Hx Cancer: Yes Hx Chemotherapy: Yes - INTEGUMENTARY Hx Dermatological Problems: No - MUSCULOSKELETAL/RHEUMATOLOGICAL Hx Musculoskeletal Disorders: Yes Hx Falls: Yes - GASTROINTESTINAL Hx Gastrointestinal Disorders: No - GENITOURINARY/GYNECOLOGICAL Hx Genitourinary Disorders: No - PSYCHIATRIC Hx Substance Use: No - SURGICAL HISTORY Hx Surgeries: No - ANESTHESIA Hx Anesthesia: No Meds Allergies/Adverse Reactions: Allergies Allergy/AdvReac Type Severity Reaction Status Date / Time No Known Allergies Allergy Unverified 08/09/17 04:13 - Medications Medications: Current Medications Albuterol Sulfate (Albuterol 0.083% Inhal Kelsi (2.5 Mg/3 Ml) Ud) 2.5 mg INH RQ6 PRN PRN Reason: Wheezing Last Admin: 08/10/17 02:44 Dose: 2.5 mg Aspirin (Aspirin Chewable) 81 mg PO DAILY [facility] Last Admin: 08/09/17 08:19 Dose: Not Given Budesonide (Pulmicort Respules) 0.5 mg INH RQ12 [facility] Last Admin: 08/09/17 20:04 Dose: Not Given Heparin Sodium (Porcine) (Heparin) 5,000 units SC Q8 [facility] Last Admin: 08/10/17 05:13 Dose: 5,000 units Vancomycin HCl (Vancocin 750mg/D5w 150 Ml) 150 mls @ 150 mls/hr IVPB Q12H [facility] Stop: 08/14/17 18:01 Last Admin: 08/10/17 05:10 Dose: 150 mls/hr Piperacillin Sod/Tazobactam Sod (Zosyn 3.375 Gm Iv Premix) 3.375 gm in 50 mls @ 100 mls/hr IVPB Q6 [facility] Last Admin: 08/10/17 05:09 Dose: 100 mls/hr Dopamine HCl/Dextrose (Dopamine 400mg/250ml D5w) 400 mg in 250 mls @ 4.082 mls/ hr IV .Q24H PRN; Protocol; 2 MCG/KG/MIN PRN Reason: TITRATE PER MD ORDER Last Admin: 08/10/17 06:16 Dose: 5 mcg/kg/min, 10.206 mls/hr Sodium Chloride (Sodium Chloride 0.9%) 1,000 mls @ 70 mls/hr IV .[id number] [facility] Last Admin: 08/10/17 06:23 Dose: 70 mls/hr Amikacin Sulfate 500 mg/ (Sodium Chloride) 102 mls @ 68 mls/hr IVPB Q24H [facility] Last Admin: 08/10/17 01:46 Dose: 68 mls/hr Levetiracetam (Keppra) 500 mg PO BID [facility] Last Admin: 08/09/17 18:51 Dose: 500 mg Metoprolol Tartrate (Lopressor) 25 mg PO BID [facility] Last Admin: 08/09/17 08:19 Dose: Not Given Pantoprazole Sodium (Protonix Susp) 40 mg PO 0600 [facility] Last Admin: 08/10/17 05:12 Dose: 40 mg Results - Vital Signs Recent Vital Signs: Last Vital Signs Temp 97.6 F 08/10/17 04:00 Pulse 93 H 08/10/17 07:00 Resp 23 08/10/17 07:00 BP 85/67 L 08/10/17 06:58 Pulse Ox 97 08/10/17 06:16 - Labs Result Diagrams: 08/10/17 06:02 08/10/17 06:02 Labs: Laboratory Results - last 24 hr 08/09/17 08/09/1717 11:17 12:41 12:41 WBC 24.1 H RBC 3.68 L Hgb 9.6 L Hct 31.2 L MCV 84.6 MCH 25.9 L MCHC 30.7 L RDW 18.7 H Plt Count 124 L D MPV 8.9 Neut % (Auto) 92.1 H Lymph % (Auto) 3.0 L [place] % (Auto) 4.5 Eos % (Auto) 0.0 Baso % (Auto) 0.4 Neut # 22.2 H Lymph # 0.7 L [place] # 1.1 H Eos # 0.0 Baso # 0.1 Neutrophils % (Manual) 92 H Band Neutrophils % 3 H Lymphocytes % (Manual) 1 L Monocytes % (Manual) 4 Platelet Estimate Slightly decreased L Hypochromasia (manual) Slight Anisocytosis (manual) Slight Puncture Site pCO2 pO2 HCO3 ABG pH ABG Total CO2 ABG O2 Saturation ABG Base Excess ABG Hemoglobin ABG Carboxyhemoglobin POC ABG HHb (Measured) ABG Methemoglobin Severiano Test ABG Potassium A-a O2 Difference Respiratory Index Hgb O2 Saturation Sodium Chloride Glucose Lactate Liter Flow FiO2 Potassium Carbon Dioxide Anion Gap BUN Creatinine Est GFR ( Amer) Est GFR (Non-Af Amer) Random Glucose Calcium Phosphorus Magnesium Total Bilirubin AST ALT Alkaline Phosphatase Total Creatine Kinase CK-MB (Mass) Troponin I, Quant Total Protein Albumin Globulin Albumin/Globulin Ratio Procalcitonin 4.98 H 13.32 H Thyroxine (T4) TSH 3rd Generation Arterial Blood Potassium 08/09/17 08/09/17 08/09/17 12:41 12:51 21:31 WBC RBC Hgb Hct MCV MCH MCHC RDW Plt Count MPV Neut % (Auto) Lymph % (Auto) [place] % (Auto) Eos % (Auto) Baso % (Auto) Neut # Lymph # [place] # Eos # Baso # Neutrophils % (Manual) Band Neutrophils % Lymphocytes % (Manual) Monocytes % (Manual) Platelet Estimate Hypochromasia (manual) Anisocytosis (manual) Puncture Site Rr pCO2 36 pO2 114 H HCO3 23.4 ABG pH 7.40 ABG Total CO2 23.4 ABG O2 Saturation 99.9 H ABG Base Excess -2.0 ABG Hemoglobin ABG Carboxyhemoglobin POC ABG HHb (Measured) ABG Methemoglobin Severiano Test Pos ABG Potassium 4.0 A-a O2 Difference 126.0 Respiratory Index 1.1 Hgb O2 Saturation Sodium 132.0 Chloride 108.0 H Glucose 127 H Lactate 1.1 Liter Flow FiO2 40.0 Potassium Carbon Dioxide Anion Gap BUN Creatinine Est GFR ( Amer) Est GFR (Non-Af Amer) Random Glucose Calcium Phosphorus Magnesium Total Bilirubin AST ALT Alkaline Phosphatase Total Creatine Kinase 95 64 CK-MB (Mass) 5.44 H 5.94 H Troponin I, Quant 0.7290 H* 0.6800 H* Total Protein Albumin Globulin Albumin/Globulin Ratio Procalcitonin Thyroxine (T4) 3.63 L TSH 3rd Generation 2.33 Arterial Blood Potassium 4.0 08/10/17 08/10/17 08/10/17 04:55 06:02 06:02 WBC 29.0 H RBC 3.89 L Hgb 10.1 L Hct 33.3 L MCV 85.5 MCH 26.0 L MCHC 30.4 L RDW 19.5 H Plt Count 164 MPV 8.9 Neut % (Auto) 93.0 H Lymph % (Auto) 2.5 L [place] % (Auto) 4.3 Eos % (Auto) 0.0 Baso % (Auto) 0.2 Neut # 27.0 H Lymph # 0.7 L [place] # 1.3 H Eos # 0.0 Baso # 0.0 Neutrophils % (Manual) Band Neutrophils % Lymphocytes % (Manual) Monocytes % (Manual) Platelet Estimate Hypochromasia (manual) Anisocytosis (manual) Puncture Site Rbrachial pCO2 38 pO2 82 HCO3 22.5 ABG pH 7.37 ABG Total CO2 23.2 ABG O2 Saturation 97.4 ABG Base Excess -3.0 L ABG Hemoglobin 10.2 L ABG Carboxyhemoglobin 2.2 H POC ABG HHb (Measured) 2.5 ABG Methemoglobin 0.9 Severiano Test Neg ABG Potassium A-a O2 Difference 156.0 Respiratory Index 1.9 Hgb O2 Saturation 94.3 L Sodium 131 L Chloride 102 Glucose Lactate Liter Flow 30.0 FiO2 40.0 Potassium 4.3 Carbon Dioxide 18 L Anion Gap 15 BUN 19 Creatinine 0.6 L Est GFR ( Amer) > 60 Est GFR (Non-Af Amer) > 60 Random Glucose 118 H Calcium 7.2 L Phosphorus 3.2 Magnesium 1.9 Total Bilirubin 0.4 AST 21 ALT 24 Alkaline Phosphatase 97 Total Creatine Kinase CK-MB (Mass) Troponin I, Quant Total Protein 5.1 L Albumin 2.3 L Globulin 2.8 Albumin/Globulin Ratio 0.8 L Procalcitonin Thyroxine (T4) TSH 3rd Generation Arterial Blood Potassium Assessment & Plan - Assessment and Plan (Free Text) Assessment: 1). 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 CT Head 08/09/17 shows inferior Right Frontal Lobe 5 mm increased attenuation questionable for metastasis. MRI Brain with and without contrast has been ordered 08/09/17:Patient's sister Dedra [phone] was at bedside at the time of my exam, explains that the patient is being treated for this by Oncologist Dr. Tyrese Ward at [facility] [place]. I called [facility] [place] [facility] [phone] Tyrese Ward's phone number [phone], however this number is no longer in service and this is the same number that comes up for the him upon Google Search. Patient explains that his Brother Thuan [phone] has a copy of his Living Will/Advance Directive but patient could not provide details as to his wishes and when asked did not answer. I have asked Dedra to have Thuan bring in the copy of this document. 08/10/17: Extensive conversation with the patient today explaining all of his diagnosises as he asked what was happening with him. He asked if he was going to . I responded by telling him that his prognosis was very poor because of all that was going on with him and that the likelihood of him passing was high but that I could not predict when that would occur. I explained to him that he needed to think about what his wishes were and to the extent that he wanted treatment. He understands that Palliative Care Nurse will be speaking with him on 08/11/17. I also called and spoke with Sister Dedra [phone] and updated her as well and she informed me that there is NO living will as brother Thuan had checked and patient had the paperwork for it but he never completed it. Palliative Care Consult with Nurse Vazquez Consult with Oncologist Dr. Katiana Murray 2). Loculated Right Pleural Effusion Consult Pinking Sewing Machine Operator Dr. Bradford for further recommendations Vancomycin 750 mg IV Q24H Zosyn 3.375 gm IV Q6H Amikacin 500 mg IV Q24H Blood Culture 08/09/17 is negative to date F/U Urine Culture Consult ID Dr. Meredith Melendez 3). Elevated Troponin/NSTEMI Explained to patient and to sister that holding anticoagulation considering the possibility of causing hemorrhage in brain given findings on CT Head as well as secondary to Anemia 2D Echocardiogram shows EF of 20%, moderate aortic stenosis, moderate to severe pulmonary HTN, LVSF is borderline, concentric hypertrophy 4). Seizure Secondary to possible metastasis to brain? This is certainly a possibility considering the patient's loss of consciousness and then waking up with loss of bowel and bladder control EEG ordered F/U MRI Brain with and without contrast Consult Neurology Dr. Radhames Nolenra 500 mg PO 2x/day 5). Atrial Fibrillation Sister Dedra does not know whether patient has a history of this or not and patient could not provide information as when asked he would not answer He is rate controlled although in the high 90s for now NO anticoagulation (other than ASA) for reason mentioned in Assessment and Plan #3 6). Bilateral Leg Edema Bilateral Venous Duplex 08/09/17 is negative for DVT As per admitting H&P patient has history of Right Leg DVT 7). Hypotension Patient is on Dopamine 4 mcg/kg/min 8). Respiratory Distress Patient is refusing BiPAP Explained to both patient and sister Dedra that patient had increased work of breathing and that he would not likely be able to keep up his current breathing and that this will eventually lead to intubation/vent placement. Again today patient would not state anything concerning what his wishes were other than he would rather be at home but he wants everything done for him at the moment. I explained that as of right now, he will be FULL CODE. Pulmicort 0.5 mg INH Q12H 9). Hx of HTN Metoprolol 25 mg PO 2x/day is placed on HOLD considering the Hypotension. 10). Prophylaxis ASA 81 mg PO 1x/day Protonix 40 mg PO 1x/day Toradol 15 mg IV Q6H PRN Moderate Pain Morphine 1 mg IV Q4H PRN Severe Pain Heparin 5,000 Units SC Q8H
[2017-08-10 08:19] LABS: NEUTROPHIL 91 % (50-75); TOTAL CELLS COUNTED 100
[2017-08-10] MEDS: levETIRAcetam 100 mg/ml (5ml) Oral Syringe PO SCH ×2 (10:11→17:32)
[2017-08-10] MEDS: Oxycodone/Acetaminophen 5/325 mg Tab PO PRN ×2 (15:37→23:37)
--- NOTE | 2017-08-10 19:08 | PN ---
DATE: 08/10/2017 NEUROLOGICAL PROBLEM: Possible metastatic brain lesion from lung tumor. PHYSICAL EXAMINATION: VITAL SIGNS: Blood pressure 109/63, mean arterial pressure of 78, respiratory 16, temperature afebrile. The patient is on BiPAP, easily arousable. Immediately he pulls out the BiPAP, does not want to be on. He moves all four extremities against the gravity. No witnessed or any new seizures since he is in the hospital. The patient's workups are in progress. The patient will be followed closely with you. Joey Ricci MD
--- NOTE | 2017-08-10 19:33 | CP.PCM.PN ---
Subjective - Date & Time of Evaluation Date of Evaluation: 08/10/17 Time of Evaluation: 18:15 - Subjective Subjective: Hospitalist Progress Note Patient was seen and examined at 6:15 PM 08/10/17 ICU Bed 14B 67 year old male (PMHx of Right Lung CA being treated at [facility] by Oncologist Dr. Tyrese Ward) who was admitted for further treatment and evaluation after he lost conciousness at home. Currently upon FULL ROS: Dyspnea but refusing BiPAP Cough Chest pain on the left nonradiating NO abdominal pain NO n/v/d/c NO burning/pain with urination NO paresthesias NO headache Blurriness of vision NO changes in ears/hearing Severe pain in his back Exam: HEENT: NCA, EOMI, PERRLA, NO cervical lymphadenopathy, NO thyromegaly, NO pharyngeal exudate/erythema, Dry oral mucosa and nasal turbinates Cardio: Irregularly Irregular Resp: Decreased breath sounds throughout the Right Lung, Decreased breath sound Left Upper Lung, Faint inspiratory crackles left basilar area: please note that this is limited by patient not taking in deep breaths GI: NO HSM, Soft, NT, NO rebound/guarding, BSx4 reduced Ext: Capillary Refill is 2 seconds, 2+ pitting edema bilateral feet to the tibial tuberosities, Pulses are strong and equal Neuro: CN II through XII are grossly intact Assessment and Plan: 1). 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 CT Head 08/09/17 shows inferior Right Frontal Lobe 5 mm increased attenuation questionable for metastasis. MRI Brain with and without contrast has been ordered 08/09/17:Patient's sister Dedra [phone] was at bedside at the time of my exam, explains that the patient is being treated for this by Oncologist Dr. Tyrese Ward at [facility]. I called [facility] [phone] Tyrese Ward's phone number [phone], however this number is no longer in service and this is the same number that comes up for the him upon Google Search. Patient explains that his Brother Thuan [phone] has a copy of his Living Will/Advance Directive but patient could not provide details as to his wishes and when asked did not answer. I have asked Dedra to have Thuan bring in the copy of this document. 08/10/17: Extensive conversation with the patient today explaining all of his diagnosises as he asked what was happening with him. He asked if he was going to . I responded by telling him that his prognosis was very poor because of all that was going on with him and that the likelihood of him passing was high but that I could not predict when that would occur. I explained to him that he needed to think about what his wishes were and to the extent that he wanted treatment. He understands that Palliative Care Nurse will be speaking with him on 08/11/17. I also called and spoke with Sister Dedra [phone] and updated her as well and she informed me that there is NO living will as brother Thuan had checked and patient had the paperwork for it but he never completed it. Palliative Care Consult with Nurse Vazquez Consult with Oncologist Dr. Katiana Murray 2). Loculated Right Pleural Effusion Consult Drapery Maker Dr. Bradford for further recommendations Vancomycin 750 mg IV Q24H Zosyn 3.375 gm IV Q6H Amikacin 500 mg IV Q24H Blood Culture 08/09/17 is negative to date F/U Urine Culture Consult ID Dr. Meredith Melendez 3). Elevated Troponin/NSTEMI Could this be secondary to MA vs secondary to AF? Explained to patient and to sister that holding anticoagulation considering the possibility of causing hemorrhage in brain given findings on CT Head as well as secondary to Anemia Consult Match Up Worker Dr. Teresa 2D Echocardiogram shows EF of 20%, moderate aortic stenosis, moderate to severe pulmonary HTN, LVSF is borderline, concentric hypertrophy 4). Seizure Secondary to possible metastasis to brain? This is certainly a possibility considering the patient's loss of consciousness and then waking up with loss of bowel and bladder control EEG ordered F/U MRI Brain with and without contrast Consult Neurology Dr. Radhames Esparza 500 mg PO 2x/day 5). Atrial Fibrillation Sister Dedra does not know whether patient has a history of this or not and patient could not provide information as when asked he would not answer He is rate controlled although in the high 90s for now NO anticoagulation (other than ASA) for reason mentioned in Assessment and Plan #3 6). Bilateral Leg Edema Bilateral Venous Duplex 08/09/17 is negative for DVT As per admitting H&P patient has history of Right Leg DVT 7). Hypotension Patient is on Dopamine 4 mcg/kg/min 8). Respiratory Distress Patient is refusing BiPAP Explained to both patient and sister Dedra that patient had increased work of breathing and that he would not likely be able to keep up his current breathing and that this will eventually lead to intubation/vent placement. Again today patient would not state anything concerning what his wishes were other than he would rather be at home but he wants everything done for him at the moment. I explained that as of right now, he will be FULL CODE. Pulmicort 0.5 mg INH Q12H 9). Hx of HTN Metoprolol 25 mg PO 2x/day is placed on HOLD considering the Hypotension. 10). Prophylaxis ASA 81 mg PO 1x/day Protonix 40 mg PO 1x/day Toradol 15 mg IV Q6H PRN Moderate Pain Morphine 1 mg IV Q4H PRN Severe Pain Heparin 5,000 Units SC Q8H Objective - Vital Signs/Intake and Output Vital Signs (last 24 hours): Temp Pulse Resp BP Pulse Ox 97.4 F L 89 26 H 89/60 L 100 08/10/17 16:00 08/10/17 19:00 08/10/17 19:00 08/10/17 19:00 08/10/17 19:00 Intake and Output: 08/10/17 08/11/17 18:59 06:59 Intake Total 936.2 70 Output Total 150 Balance 786.2 70 - Medications Medications: Current Medications Albuterol Sulfate (Albuterol 0.083% Inhal Kelsi (2.5 Mg/3 Ml) Ud) 2.5 mg INH RQ6 PRN PRN Reason: Wheezing Last Admin: 08/10/17 13:50 Dose: 2.5 mg Aspirin (Aspirin Chewable) 81 mg PO DAILY [facility] Last Admin: 08/10/17 10:13 Dose: 81 mg Budesonide (Pulmicort Respules) 0.5 mg INH RQ12 [facility] Last Admin: 08/10/17 07:46 Dose: 0.5 mg Heparin Sodium (Porcine) (Heparin) 5,000 units SC Q8 [facility] Last Admin: 08/10/17 15:00 Dose: 5,000 units Vancomycin HCl (Vancocin 750mg/D5w 150 Ml) 150 mls @ 150 mls/hr IVPB Q12H [facility] Stop: 08/14/17 18:01 Last Admin: 08/10/17 17:30 Dose: 150 mls/hr Piperacillin Sod/Tazobactam Sod (Zosyn 3.375 Gm Iv Premix) 3.375 gm in 50 mls @ 100 mls/hr IVPB Q6 [facility] Last Admin: 08/10/17 17:29 Dose: 100 mls/hr Dopamine HCl/Dextrose (Dopamine 400mg/250ml D5w) 400 mg in 250 mls @ 4.082 mls/ hr IV .Q24H PRN; Protocol; 2 MCG/KG/MIN PRN Reason: TITRATE PER MD ORDER Last Titration: 08/10/17 16:00 Dose: 0 mcg/kg/min, 0 mls/hr Sodium Chloride (Sodium Chloride 0.9%) 1,000 mls @ 70 mls/hr IV .[id number] [facility] Last Admin: 08/10/17 06:23 Dose: 70 mls/hr Amikacin Sulfate 500 mg/ (Sodium Chloride) 102 mls @ 68 mls/hr IVPB Q24H [facility] Last Admin: 08/10/17 01:46 Dose: 68 mls/hr Ketorolac Tromethamine (Toradol) 15 mg IVP Q6 PRN PRN Reason: Pain, moderate (4-7) Stop: 08/12/17 12:48 Last Admin: 08/10/17 12:56 Dose: 15 mg Levetiracetam (Keppra) 500 mg PO BID [facility] Last Admin: 08/10/17 17:32 Dose: 500 mg Metoprolol Tartrate (Lopressor) 25 mg PO BID [facility] Last Admin: 08/09/17 08:19 Dose: Not Given Morphine Sulfate (Morphine) 1 mg IV Q4 PRN PRN Reason: Pain, severe (8-10) Last Admin: 08/10/17 18:05 Dose: 1 mg Oxycodone/Acetaminophen (Percocet 5/325 Mg Tab) 1 tab PO Q4H PRN PRN Reason: Pain, moderate (4-7) Stop: 08/13/17 15:46 Last Admin: 08/10/17 15:37 Dose: 1 tab Pantoprazole Sodium (Protonix Susp) 40 mg PO 0600 [facility] Last Admin: 08/10/17 05:12 Dose: 40 mg - Labs Labs: 08/10/17 06:02 08/10/17 06:02 PT 23.9 SECONDS (9.7-12.2) H 08/09/17 04:49 INR 2.1 08/09/17 04:49 APTT 63 SECONDS (21-34) H 08/09/17 04:49
--- NOTE | 2017-08-10 20:58 | CP.PCM.PN ---
Subjective - Date & Time of Evaluation Date of Evaluation: 08/10/17 Time of Evaluation: 20:57 - Subjective Subjective: Patient with no additional cardiac events Review Of Systems Constitutional: Positive for: Weakness. Negative for: Fever, Chills Eyes: Negative for: Redness ENT: Negative for: Throat Pain Cardiovascular: Negative for: Chest Pain, Palpitations Respiratory: Negative for: Cough, Shortness of Breath Gastrointestinal: Negative for: Nausea, Vomiting, Abdominal Pain Genitourinary: Negative for: Dysuria Musculoskeletal: Negative for: Back Pain Skin: Negative for: Rash, Lesions, Jaundice, Bruising Neurological: Positive for: Weakness. Negative for: Altered Mental Status, Headache, Dizziness Psych: Negative for: Anxiety, Depression Physical Exam - Constitutional Appears: Toxic, Cachectic - Head Exam Head Exam: ATRAUMATIC, NORMAL INSPECTION, NORMOCEPHALIC - Eye Exam Eye Exam: EOMI Pupil Exam: NORMAL ACCOMODATION, PERRL - ENT Exam ENT Exam: Mucous Membranes Dry - Respiratory Exam Respiratory Exam: Wheezes (Diffuse R. Lung) - Cardiovascular Exam Cardiovascular Exam: Tachycardia, Irregular Rhythm Additional comments: afib - GI/Abdominal Exam GI & Abdominal Exam: Normal Bowel Sounds, Soft. absent: Distended, Tenderness - Extremities Exam Extremities exam: Positive for: joint swelling (L>R 2+ pitting), tenderness - Back Exam Back exam: absent: CVA tenderness (L), CVA tenderness (R) - Neurological Exam Neurological exam: Alert, Oriented x3 - Psychiatric Exam Psychiatric exam: Normal Affect, Normal Mood - Skin Skin Exam: Dry, Intact, Normal Color, Warm Objective - Vital Signs/Intake and Output Vital Signs (last 24 hours): Temp Pulse Resp BP Pulse Ox 97.4 F L 89 26 H 89/60 L 100 08/10/17 16:00 08/10/17 19:00 08/10/17 19:00 08/10/17 19:00 08/10/17 19:00 Intake and Output: 08/10/17 08/11/17 18:59 06:59 Intake Total 936.2 70 Output Total 150 Balance 786.2 70 - Medications Medications: Current Medications Albuterol Sulfate (Albuterol 0.083% Inhal Kelsi (2.5 Mg/3 Ml) Ud) 2.5 mg INH RQ6 PRN PRN Reason: Wheezing Last Admin: 08/10/17 19:35 Dose: 2.5 mg Aspirin (Aspirin Chewable) 81 mg PO DAILY [facility] Last Admin: 08/10/17 10:13 Dose: 81 mg Budesonide (Pulmicort Respules) 0.5 mg INH RQ12 [facility] Last Admin: 08/10/17 19:35 Dose: 0.5 mg Heparin Sodium (Porcine) (Heparin) 5,000 units SC Q8 [facility] Last Admin: 08/10/17 15:00 Dose: 5,000 units Vancomycin HCl (Vancocin 750mg/D5w 150 Ml) 150 mls @ 150 mls/hr IVPB Q12H [facility] Stop: 08/14/17 18:01 Last Admin: 08/10/17 17:30 Dose: 150 mls/hr Piperacillin Sod/Tazobactam Sod (Zosyn 3.375 Gm Iv Premix) 3.375 gm in 50 mls @ 100 mls/hr IVPB Q6 [facility] Last Admin: 08/10/17 17:29 Dose: 100 mls/hr Dopamine HCl/Dextrose (Dopamine 400mg/250ml D5w) 400 mg in 250 mls @ 4.082 mls/ hr IV .Q24H PRN; Protocol; 2 MCG/KG/MIN PRN Reason: TITRATE PER MD ORDER Last Titration: 08/10/17 16:00 Dose: 0 mcg/kg/min, 0 mls/hr Sodium Chloride (Sodium Chloride 0.9%) 1,000 mls @ 70 mls/hr IV .[id number] [facility] Last Admin: 08/10/17 06:23 Dose: 70 mls/hr Amikacin Sulfate 500 mg/ (Sodium Chloride) 102 mls @ 68 mls/hr IVPB Q24H [facility] Last Admin: 08/10/17 01:46 Dose: 68 mls/hr Ketorolac Tromethamine (Toradol) 15 mg IVP Q6 PRN PRN Reason: Pain, moderate (4-7) Stop: 08/12/17 12:48 Last Admin: 08/10/17 12:56 Dose: 15 mg Levetiracetam (Keppra) 500 mg PO BID [facility] Last Admin: 08/10/17 17:32 Dose: 500 mg Metoprolol Tartrate (Lopressor) 25 mg PO BID [facility] Last Admin: 08/09/17 08:19 Dose: Not Given Morphine Sulfate (Morphine) 1 mg IV Q4 PRN PRN Reason: Pain, severe (8-10) Last Admin: 08/10/17 18:05 Dose: 1 mg Oxycodone/Acetaminophen (Percocet 5/325 Mg Tab) 1 tab PO Q4H PRN PRN Reason: Pain, moderate (4-7) Stop: 08/13/17 15:46 Last Admin: 08/10/17 15:37 Dose: 1 tab Pantoprazole Sodium (Protonix Susp) 40 mg PO 0600 [facility] Last Admin: 08/10/17 05:12 Dose: 40 mg - Labs Labs: 08/10/17 06:02 08/10/17 06:02 PT 23.9 SECONDS (9.7-12.2) H 08/09/17 04:49 INR 2.1 08/09/17 04:49 APTT 63 SECONDS (21-34) H 08/09/17 04:49 Assessment and Plan - Assessment and Plan (Free Text) Assessment: Sepsis Non ST elevation OH Severe Systolic CHF (EF 25-30%) Metastatic CA Respiratory insiffiency Pressors for BP support Reduce IV fluids Given Metastatic Ca and Poor Cardiac status medical terminologist prognosis is poor
[2017-08-11] MEDS: Sodium Chloride 0.9% 1,000 ML IV SCH ×2 (00:30→17:13)
[2017-08-11] MEDS: Vancomycin 750mg/D5W 150 ml 150 ML IVPB SCH ×2 (05:00→17:14)
[2017-08-11] MEDS: Piperacill/Tazo 3.375gm in Dex 3.375 GM/50 ML BAG IVPB SCH ×4 (05:39→23:25)
[2017-08-11] MEDS: Albuterol 0.083% Inhal Sol (2.5 mg/3 mL) UD INH PRN ×2 (05:40→07:38)
[2017-08-11] MEDS: Pantoprazole 40 mg Susp UD PO SCH (05:41)
[2017-08-11] MEDS: Budesonide 0.5 mg/2 ml Inhal Susp UD INH SCH ×2 (07:38→20:14)
[2017-08-11] MEDS: Oxycodone/Acetaminophen 5/325 mg Tab PO PRN ×2 (08:05→22:47)
[2017-08-11 08:12] LABS: MEAN CELL VOLUME 87.1 fL (80.0-94.0); MEAN PLATELET VOLUME 8.8 fL (7.2-11.7); MONO # 1.1 K/uL (0.0-0.8); WHITE BLOOD COUNT 16.4 K/uL (4.8-10.8)
[2017-08-11 08:16] LABS: BASO % 0.2 % (0.0-2.0); HEMATOCRIT 22.1 % (35.0-51.0); LYMPH # 0.5 K/uL (1.0-4.3); LYMPH % 2.8 % (20.0-40.0); MEAN CORPUSCULAR HEMOGLOBIN 26.4 pg (27.0-31.0); MEAN CORPUSCULAR HGB CONC 30.3 g/dL (33.0-37.0); MONO % 6.8 % (0.0-10.0); RED CELL DISTRIBUTION WIDTH 19.4 % (11.5-14.5)
[2017-08-11 08:23] LABS: PLATELET COUNT 98 K/uL (130-400)
[2017-08-11 08:25] LABS: CHLORIDE 118 mmol/L (98-107); SODIUM 138 mmol/L (132-148)
[2017-08-11 08:27] LABS: GFR AFRICAN-AMERICAN > 60
[2017-08-11 08:28] LABS: ALB/GLOB RATIO 0.7 (1.0-2.1); ALKALINE PHOSPHATASE 54 U/L (38-126); ALT/SGPT 26 U/L (21-72); AST/SGOT 12 U/L (17-59); BILIRUBIN,TOTAL 0.3 mg/dL (0.2-1.3); BLOOD UREA NITROGEN 14 mg/dL (9-20); CARBON DIOXIDE 14 mmol/L (22-30); GLUCOSE,RANDOM 77 mg/dL (75-110); TOTAL PROTEIN 3.3 g/dL (6.3-8.3)
[2017-08-11 08:29] LABS: MAGNESIUM 1.3 mg/dL (1.6-2.3)
[2017-08-11 09:15] LABS: CALCIUM 4.3 mg/dl (8.6-10.4)
[2017-08-11 09:16] LABS: POTASSIUM 2.7 mmol/L (3.6-5.2)
--- NOTE | 2017-08-11 09:21 | PN ---
DATE: 08/11/2017 TIME OF EVALUATION: 07:45 a.m. 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 The patient is still having hypoxic episode without BiPAP. The patient could not able to lie down flat. PHYSICAL EXAMINATION: The patient's exam is unchanged. The patient is lethargic at present. ASSESSMENT AND PLAN: The patient could not able to do MRI because he could not able to lie flat. I would like him to have a CT brain with contrast to rule out any new metastasis, which could explain his change in mental status and hypoxic insult. The patient will be followed closely with you. Joey Ricci MD
[2017-08-11 09:45] LABS: NEUTROPHIL 95 % (50-75); TOTAL CELLS COUNTED 100
[2017-08-11] MEDS: levETIRAcetam 100 mg/ml (5ml) Oral Syringe PO SCH ×2 (11:49→17:13)
--- NOTE | 2017-08-11 12:49 | CP.PCM.CON ---
History of Present Illness - History of Present Illness History of Present Illness: Palliative consult Requested by Ed Mulligan DO Reason: Goals of care discussion Patient is a67 yo male, admitted from home with generalized weakness since few days ago when he was [place] [facility] Patient reports not being able to stand up when rising from the bed, and lowered himself to the floor. The EMS brought him to the ED where the CT scan showed Right lung conolidation and very poor aeration. The CT head was suspicious for mets, most likely from the lungs . WBC 24.1 on admission, down to 16.4 today. IV antibiotics Vanco, Amikacin and Zosyn on board. PMH: Lung Cancer, diagnosed 2.5 years ago, on chemo Tx, last chemo was last Friday Soc. Hx: Lives alone, never , three sisters and brother involved in care Fam. Hx: denies known fam Hx Review of Systems - Constitutional Constitutional: Weight Loss, Weakness - EENT Eyes: absent: As Per HPI, Blind Spots, Blurred Vision, Change in Vision, Decreased Night Vision, Diplopia, Discharge, Dry Eye, Exophthalmos, Floaters, Irritation, Itchy Eyes, Loss of Peripheral Vision, Pain, Photophobia, Requires Corrective Lenses, Sees Flashes, Spots in Vision, Tunnel Vision, Other Visual Disturbances, Loss of Vision, Other Ears: absent: As Per HPI, Decreased Hearing, Ear Discharge, Ear Pain, Tinnitus, Abnormal Hearing, Disequilibrium, Dizziness, Other Nose/Mouth/Throat: absent: As Per HPI, Epistaxis, Nasal Congestion, Nasal Discharge, Nasal Obstruction, Nasal Trauma, Nose Pain, Post Nasal Drip, Sinus Pain, Sinus Pressure, Bleeding Gums, Change in Voice, Dental Pain, Dry Mouth, Dysphagia, Halitosis, Hoarsness, Lip Swelling, Mouth Lesions, Mouth Pain, Odynophagia, Sore Throat, Throat Swelling, Tongue Swelling, Facial Pain, Neck Pain, Neck Mass, Other - Cardiovascular Cardiovascular: Dyspnea, Dyspnea on Exertion, Leg Edema - Respiratory Respiratory: Dyspnea, Dyspnea on Exertion - Gastrointestinal Gastrointestinal: absent: As Per HPI, Abdominal Pain, Belching, Bloating, Change in Bowel Habits, Change in Stool Character, Coffee Ground Emesis, Constipation, Cramping, Diarrhea, Dyspepsia, Dysphagia, Early Satiety, Excessive Flatus, Fecal Incontinence, Heartburn, Hematemesis, Hematochezia, Loose Stools, Melena, Nausea, Odynophagia, Temesmus, Vomiting, Other - Genitourinary Genitourinary: absent: As Per HPI, Change in Urinary Stream, Difficulty Urinating, Dysuria, Flank Pain, Hematuria, Pyuria, Nocturia, Urinary Incontinence, Urinary Frequency, Urinary Hesitance, Urinary Urgency, Voiding Freq/Small Amts, Freq UTI, Hx Renal/Bladder Calculi, Hx /Renal Surgery, Bladder Distension, Other - Musculoskeletal Musculoskeletal: Muscle Weakness - Integumentary Integumentary: Dry Skin - Neurological Neurological: Weakness - Psychiatric Psychiatric: Anxiety - Endocrine Endocrine: absent: As Per HPI, Change in Body Appearance, Change in Libido, Cold Intolorance, Deepening of Voice, Excessive Sweating, Fatigue, Flushing, Heat Intolorance, Increase in Ring/Shoe/Hat Size, Palpitations, Polydipsia, Polyphagia, Polyuria, Other - Hematologic/Lymphatic Hematologic: absent: As Per HPI, Easy Bleeding, Easy Bruising, Lymphadenopathy, Other Past Patient History - Past Medical History & Family History Past Medical History?: Yes - Past Social History Smoking Status: Former Smoker - CARDIAC Hx Congestive Heart Failure: Yes - PULMONARY Hx Lung Cancer: Yes - NEUROLOGICAL Hx Neurological Disorder: Yes Hx Seizures: Yes (last 2011) - HEENT Hx HEENT Problems: No - RENAL Hx Chronic Kidney Disease: No - ENDOCRINE/METABOLIC Hx Endocrine Disorders: No - HEMATOLOGICAL/ONCOLOGICAL Hx Blood Disorders: Yes Hx Cancer: Yes Hx Chemotherapy: Yes - INTEGUMENTARY Hx Dermatological Problems: No - MUSCULOSKELETAL/RHEUMATOLOGICAL Hx Musculoskeletal Disorders: Yes Hx Falls: Yes - GASTROINTESTINAL Hx Gastrointestinal Disorders: No - GENITOURINARY/GYNECOLOGICAL Hx Genitourinary Disorders: No - PSYCHIATRIC Hx Substance Use: No - SURGICAL HISTORY Hx Surgeries: No - ANESTHESIA Hx Anesthesia: No Meds Allergies/Adverse Reactions: Allergies Allergy/AdvReac Type Severity Reaction Status Date / Time No Known Allergies Allergy Unverified 08/09/17 04:13 - Medications Medications: Current Medications Albuterol Sulfate (Albuterol 0.083% Inhal Kelsi (2.5 Mg/3 Ml) Ud) 2.5 mg INH RQ6 PRN PRN Reason: Wheezing Last Admin: 08/11/17 07:38 Dose: 2.5 mg Aspirin (Aspirin Chewable) 81 mg PO DAILY [facility] Last Admin: 08/11/17 11:49 Dose: 81 mg Budesonide (Pulmicort Respules) 0.5 mg INH RQ12 [facility] Last Admin: 08/11/17 07:38 Dose: 0.5 mg Heparin Sodium (Porcine) (Heparin) 5,000 units SC Q8 [facility] Last Admin: 08/11/17 05:37 Dose: 5,000 units Vancomycin HCl (Vancocin 750mg/D5w 150 Ml) 150 mls @ 150 mls/hr IVPB Q12H [facility] Stop: 08/14/17 18:01 Last Admin: 08/11/17 05:00 Dose: 150 mls/hr Piperacillin Sod/Tazobactam Sod (Zosyn 3.375 Gm Iv Premix) 3.375 gm in 50 mls @ 100 mls/hr IVPB Q6 [facility] Last Admin: 08/11/17 11:49 Dose: 100 mls/hr Dopamine HCl/Dextrose (Dopamine 400mg/250ml D5w) 400 mg in 250 mls @ 4.082 mls/ hr IV .Q24H PRN; Protocol; 2 MCG/KG/MIN PRN Reason: TITRATE PER MD ORDER Last Titration: 08/10/17 16:00 Dose: 0 mcg/kg/min, 0 mls/hr Sodium Chloride (Sodium Chloride 0.9%) 1,000 mls @ 70 mls/hr IV .[id number] [facility] Last Admin: 08/11/17 00:30 Dose: 70 mls/hr Amikacin Sulfate 500 mg/ (Sodium Chloride) 102 mls @ 68 mls/hr IVPB Q24H [facility] Last Admin: 08/11/17 01:00 Dose: 68 mls/hr Ketorolac Tromethamine (Toradol) 15 mg IVP Q6 PRN PRN Reason: Pain, moderate (4-7) Stop: 08/12/17 12:48 Last Admin: 08/11/17 03:40 Dose: 15 mg Levetiracetam (Keppra) 500 mg PO BID [facility] Last Admin: 08/11/17 11:49 Dose: 500 mg Metoprolol Tartrate (Lopressor) 25 mg PO BID [facility] Last Admin: 08/09/17 08:19 Dose: Not Given Morphine Sulfate (Morphine) 1 mg IV Q4 PRN PRN Reason: Pain, severe (8-10) Last Admin: 08/11/17 11:49 Dose: 1 mg Oxycodone/Acetaminophen (Percocet 5/325 Mg Tab) 1 tab PO Q4H PRN PRN Reason: Pain, moderate (4-7) Stop: 08/13/17 15:46 Last Admin: 08/11/17 08:05 Dose: 1 tab Pantoprazole Sodium (Protonix Susp) 40 mg PO 0600 [facility] Last Admin: 08/11/17 05:41 Dose: 40 mg Thiamine HCl (Vitamin B1 Tab) 100 mg PO DAILY [facility] Last Admin: 08/11/17 11:49 Dose: 100 mg Physical Exam - Constitutional Appears: Older Than Stated Age, Chronically Ill - Head Exam Head Exam: ATRAUMATIC, NORMAL INSPECTION, NORMOCEPHALIC - Eye Exam Eye Exam: EOMI, Normal appearance, PERRL Pupil Exam: NORMAL ACCOMODATION - ENT Exam ENT Exam: Mucous Membranes Moist, Normal Exam - Neck Exam Neck exam: Positive for: Normal Inspection - Respiratory Exam Respiratory Exam: Rhonchi, NORMAL BREATHING PATTERN - Cardiovascular Exam Cardiovascular Exam: REGULAR RHYTHM - GI/Abdominal Exam GI & Abdominal Exam: Normal Bowel Sounds - Rectal Exam Rectal Exam: Deferred - Exam Additional comments: Calix cath - Extremities Exam Extremities exam: Positive for: pedal edema - Back Exam Back exam: NORMAL INSPECTION - Neurological Exam Neurological exam: Alert - Psychiatric Exam Psychiatric exam: Agitated, Anxious - Skin Skin Exam: Dry, Intact, Pallor, Warm Results - Vital Signs Recent Vital Signs: Last Vital Signs Temp 97.5 F L 08/11/17 12:00 Pulse 89 08/11/17 12:00 Resp 22 08/11/17 12:00 BP 93/63 L 08/11/17 12:00 Pulse Ox 98 08/11/17 12:00 - Labs Result Diagrams: 08/11/17 07:59 08/11/17 07:59 Labs: Laboratory Results - last 24 hr 08/11/17 08/11/17 08/11/17 07:59 07:59 10:44 WBC 16.4 H RBC 2.54 L Hgb 6.7 L D Hct 22.1 L MCV 87.1 MCH 26.4 L MCHC 30.3 L RDW 19.4 H Plt Count 98 L D MPV 8.8 Neut % (Auto) 90.2 H Lymph % (Auto) 2.8 L [place] % (Auto) 6.8 Eos % (Auto) 0.0 Baso % (Auto) 0.2 Neut # 14.8 H Lymph # 0.5 L [place] # 1.1 H Eos # 0.0 Baso # 0.0 Neutrophils % (Manual) 95 H Lymphocytes % (Manual) 2 L Monocytes % (Manual) 3 Platelet Estimate Decreased L Hypochromasia (manual) Slight Anisocytosis (manual) Moderate Sodium 138 Potassium 2.7 L Chloride 118 H Carbon Dioxide 14 L Anion Gap 9 L BUN 14 Creatinine 0.5 L Est GFR ( Amer) > 60 Est GFR (Non-Af Amer) > 60 Random Glucose 77 Calcium 4.3 L* D Phosphorus 2.0 L Magnesium 1.3 L Total Bilirubin 0.3 AST 12 L D ALT 26 Alkaline Phosphatase 54 Total Protein 3.3 L Albumin 1.4 L D Globulin 1.9 L Albumin/Globulin Ratio 0.7 L Blood Type O POSITIVE Antibody Screen Negative Assessment & Plan - Assessment and Plan (Free Text) Assessment: Palliative consult Full Code, no advance directive on chart, PPS20% I reviewed medical records, all diagnostic studies, examined and interviewed patient in the bed in presence of his sister Beth, discussed his presentation with nursing and Doctor Sanchez Patient is alert, oriented X 3 with affect that is anxious. Looks chronically ill and older than stated age. Skin is pale and dry, Hb 6.7 today. Breathing is labored, patient feels like if he was not getting enough of O2. Patient is constantly asking to be given more of O2. HR regular, S1S2, ST, no murmur. Abdomen is soft, decreased bowel sounds. Calix at bed side, urine concentrated. There is pedal edema, Alb 1.4. Goals of care discussed. Patient is focused on getting better and going home. Patient admits knowledge of his diagnosis and wants to continue chemo Tx. I reviewed his current condition and elicited his values in life. Despite the known diagnosis of cancer, patient had only one goal in mind; to get better and go home. I reassured him of all actions taken to assist him with management of his symptoms. Code status discussed. Patient did not show capacity to understand that having Code status defined, would help us understand his wishes for the end of life care and fallow them. Patient instead, refused talking about it admitting to fear of dying and need to talk to his family before he makes the decision. His sister Amberly was at bed side and expressed her point of view, stating that she would choose DNR/DNI if it was her. I offered my concerns regarding quality of life. Patient remained concerned about his going home and dismissed the further discussion. Patient's sister Anita also stated that the oldest brother Danelle who is a POA was coming today and I agreed to meet with him and further discuss goals of care. Impression * Patient is with advanced lung cancer and possible mets to the brain * Anemia, Hb 6.7 * Generalized weakness * Patient is desperately fighting for his life and is not accepting any discussions regarding end of life care * Brother Danelle is a POA and is coming today Suggestion * Control symptoms and promote comfort * Correct Hb level * I will meet with the brother Danelle and further discuss Code Status * Hospice care at home would be the best level of care as patient wishes to go home I will update the notes once I meet with the POA Thank you very much for consulting Palliative Care
--- NOTE | 2017-08-11 14:49 | RAD ---
HISTORY: PICC line insertion COMPARISON: Chest x-ray performed 08/09/17 TECHNIQUE: Chest, one view. FINDINGS: Left-sided PICC likely terminates within the innominate vein. LUNGS: Dense opacification of the right upper lobe. Diffuse increased interstitial markings remain within the left sara thorax. Probable small bilateral pleural effusions. Left basilar atelectasis or infiltrate. No definite pneumothorax. CARDIOVASCULAR: Cardiomegaly. OSSEOUS STRUCTURES: Osseous demineralization. Degenerative changes. VISUALIZED UPPER ABDOMEN: Unremarkable. OTHER FINDINGS: None. IMPRESSION: Left-sided PICC extends expected location likely terminates within the innominate vein. Dense opacification of the right upper lobe. Diffuse increased interstitial markings remain within the left sara thorax. Probable small bilateral pleural effusions. Left basilar atelectasis or infiltrate.
--- NOTE | 2017-08-11 15:56 | CP.CCUPN ---
CCU Subjective - Physician Review Subjective (Free Text): Patient was seen and examined at bedside. Patient reports difficulty breathing and mild chest pain. Patient denies nausea, vomiting, fever, chills, headache and lightheadedness. Patient remains on venturi mask. CCU Objective - Vital Signs / Intake & Output Vital Signs (Last 4 hours): Vital Signs Temp Pulse Resp BP Pulse Ox 08/11/17 15:35 97.3 F L 86 25 H 99/61 L 08/11/17 15:00 90 24 100/70 100 08/11/17 14:55 97.3 F L 90 24 100/70 08/11/17 14:00 97.4 F L 83 20 94/67 L 100 08/11/17 13:55 97.4 F L 84 24 94/61 L 08/11/17 13:26 105/53 L 08/11/17 13:25 97.4 F L 83 23 96/57 L 08/11/17 13:10 97.4 F L 84 24 105/57 L 08/11/17 13:00 89 24 105/57 L 100 08/11/17 12:55 97.5 F L 87 24 99/52 L 08/11/17 12:00 97.5 F L 89 22 93/63 L 98 Intake and Output (Last 8hrs): Intake & Output 08/11/17 08/11/17 08/11/17 06:59 14:59 22:59 Intake Total 630 400 325 Output Total 205 395 Balance 425 5 325 Weight 154 lb Intake: Intake, IV Amount 630 400 Right Antecubital 630 400 Oral 0 Blood Product 0 325 Red Blood Cells Cpd As1 0 325 Lr Unit [id number] Output: Urine 205 395 Urethral (Calix) 205 395 - Physical Exam Head: Positive for: Atraumatic, Normocephalic Extroacular Muscles: Positive for: EOMI Mouth: Positive for: Moist Mucous Membranes Respiratory/Chest: Positive for: Decreased Breath Sounds Cardiovascular: Positive for: Regular Rate and Rhythm, Normal S1, S2 Abdomen: Positive for: Normal Bowel Sounds. Negative for: Tenderness Upper Extremity: Positive for: Edema (Upper extremity edema due to IV access; PICC line ) Neurological: Positive for: GCS=15, Speech Normal Skin: Positive for: Warm Psychiatric: Positive for: Alert, Oriented x 3 - Medications Active Medications: Active Medications Generic Name Dose Route Start Last Admin Trade Name Freq PRN Reason Stop Dose Admin Albuterol Sulfate 2.5 mg 08/09/17 06:54 08/11/17 07:38 Albuterol 0.083% Inhal Kelsi (2.5 Mg/3 Ml) Ud INH 2.5 mg RQ6 PRN Administration Wheezing Aspirin 81 mg 08/09/17 10:00 08/11/17 11:49 Aspirin Chewable PO 81 mg DAILY EVAN Administration Budesonide 0.5 mg 08/09/17 08:00 08/11/17 07:38 Pulmicort Respules INH 0.5 mg RQ12 EVAN Administration Heparin Sodium (Porcine) 5,000 units 08/09/17 22:00 08/11/17 15:22 Heparin SC 5,000 units Q8 EVAN Administration Vancomycin HCl 150 mls @ 150 mls/hr 08/09/17 18:00 08/11/17 05:00 Vancocin 750mg/D5w 150 Ml IVPB 08/14/17 18:01 150 mls/hr Q12H EVAN Administration Piperacillin Sod/Tazobactam Sod 3.375 gm in 50 mls @ 100 mls/hr 08/09/17 12: 00 08/11/17 11:49 Zosyn 3.375 Gm Iv Premix IVPB 100 mls/hr Q6 EVAN Administration Dopamine HCl/Dextrose 400 mg in 250 mls @ 4.082 mls/hr 08/09/17 10:29 16:00 Dopamine 400mg/250ml D5w IV 0 mcg/kg/min .Q24H PRN 0 mls/hr TITRATE PER MD ORDER Titration Protocol 2 MCG/KG/MIN Sodium Chloride 1,000 mls @ 70 mls/hr 08/09/17 17:00 08/11/17 00:30 Sodium Chloride 0.9% IV 70 mls/hr .[id number] EVAN Administration Amikacin Sulfate 500 mg/ 102 mls @ 68 mls/hr 08/10/17 02:00 08/11/17 01:00 Sodium Chloride IVPB 68 mls/hr Q24H EVAN Administration Ketorolac Tromethamine 15 mg 08/10/17 12:47 08/11/17 15:20 Toradol IVP 08/12/17 12:48 15 mg Q6 PRN Administration Pain, moderate (4-7) Levetiracetam 500 mg 08/09/17 18:00 08/11/17 11:49 Keppra PO 500 mg BID EVAN Administration Metoprolol Tartrate 25 mg 08/09/17 10:00 08/09/17 08:19 Lopressor PO Not Given BID EVAN Morphine Sulfate 1 mg 08/10/17 17:49 08/11/17 11:49 Morphine IV 1 mg Q4 PRN Administration Pain, severe (8-10) Oxycodone/Acetaminophen 1 tab 08/10/17 15:45 08/11/17 08:05 Percocet 5/325 Mg Tab PO 08/13/17 15:46 1 tab Q4H PRN Administration Pain, moderate (4-7) Pantoprazole Sodium 40 mg 08/10/17 06:00 08/11/17 05:41 Protonix Susp PO 40 mg 0600 EVAN Administration Thiamine HCl 100 mg 08/11/17 10:00 08/11/17 11:49 Vitamin B1 Tab PO 100 mg DAILY EVAN Administration - Patient Studies Lab Studies: Microbiology Studies 08/09/17 07:30 Blood Culture - Preliminary Blood NO GROWTH AFTER 48 HOURS 08/09/17 07:00 Blood Culture - Preliminary Blood NO GROWTH AFTER 48 HOURS 08/10/17 01:30 Blood Culture - Preliminary Blood-Thru Central Line NO GROWTH AFTER 24 HOURS 08/10/17 01:00 Blood Culture - Preliminary Blood-Thru Central Line NO GROWTH AFTER 24 HOURS 08/09/17 14:40 MRSA Culture (Admit) - Final Naris MRSA NOT DETECTED Lab Studies 08/11/17 08/11/17 08/11/17 Range/Units 10:44 07:59 07:59 WBC 16.4 H (4.8-10.8) K/uL RBC 2.54 L (4.40-5.90) Mil/uL Hgb 6.7 L D (12.0-18.0) g/dL Hct 22.1 L (35.0-51.0) % MCV 87.1 (80.0-94.0) fL MCH 26.4 L (27.0-31.0) pg MCHC 30.3 L (33.0-37.0) g/dL RDW 19.4 H (11.5-14.5) % Plt Count 98 L D (130-400) K/uL MPV 8.8 (7.2-11.7) fL Neut % (Auto) 90.2 H (50.0-75.0) % Lymph % (Auto) 2.8 L (20.0-40.0) % Clay % (Auto) 6.8 (0.0-10.0) % Eos % (Auto) 0.0 (0.0-4.0) % Baso % (Auto) 0.2 (0.0-2.0) % Neut # 14.8 H (1.8-7.0) K/uL Lymph # 0.5 L (1.0-4.3) K/uL Clay # 1.1 H (0.0-0.8) K/uL Eos # 0.0 (0.0-0.7) K/uL Baso # 0.0 (0.0-0.2) K/uL Neutrophils % (Manual) 95 H (50-75) % Lymphocytes % (Manual) 2 L (20-40) % Monocytes % (Manual) 3 (0-10) % Platelet Estimate Decreased L (NORMAL) Hypochromasia (manual) Slight Anisocytosis (manual) Moderate Sodium 138 (132-148) mmol/L Potassium 2.7 L (3.6-5.2) mmol/L Chloride 118 H (98-107) mmol/L Carbon Dioxide 14 L (22-30) mmol/L Anion Gap 9 L (10-20) BUN 14 (9-20) mg/dL Creatinine 0.5 L (0.8-1.5) MG/DL Est GFR ( Amer) > 60 Est GFR (Non-Af Amer) > 60 Random Glucose 77 (75-110) mg/dL Calcium 4.3 L* D (8.6-10.4) mg/dl Phosphorus 2.0 L (2.5-4.5) mg/dL Magnesium 1.3 L (1.6-2.3) mg/dL Total Bilirubin 0.3 (0.2-1.3) mg/dL AST 12 L D (17-59) U/L ALT 26 (21-72) U/L Alkaline Phosphatase 54 (38-126) U/L Total Protein 3.3 L (6.3-8.3) g/dL Albumin 1.4 L D (3.5-5.0) g/dL Globulin 1.9 L (2.2-3.9) gm/dL Albumin/Globulin Ratio 0.7 L (1.0-2.1) Blood Type O POSITIVE Antibody Screen Negative Laboratory Results - last 24 hr 08/11/17 08/11/17 08/11/17 07:59 07:59 10:44 WBC 16.4 H RBC 2.54 L Hgb 6.7 L D Hct 22.1 L MCV 87.1 MCH 26.4 L MCHC 30.3 L RDW 19.4 H Plt Count 98 L D MPV 8.8 Neut % (Auto) 90.2 H Lymph % (Auto) 2.8 L Clay % (Auto) 6.8 Eos % (Auto) 0.0 Baso % (Auto) 0.2 Neut # 14.8 H Lymph # 0.5 L Clay # 1.1 H Eos # 0.0 Baso # 0.0 Neutrophils % (Manual) 95 H Lymphocytes % (Manual) 2 L Monocytes % (Manual) 3 Platelet Estimate Decreased L Hypochromasia (manual) Slight Anisocytosis (manual) Moderate Sodium 138 Potassium 2.7 L Chloride 118 H Carbon Dioxide 14 L Anion Gap 9 L BUN 14 Creatinine 0.5 L Est GFR ( Amer) > 60 Est GFR (Non-Af Amer) > 60 Random Glucose 77 Calcium 4.3 L* D Phosphorus 2.0 L Magnesium 1.3 L Total Bilirubin 0.3 AST 12 L D ALT 26 Alkaline Phosphatase 54 Total Protein 3.3 L Albumin 1.4 L D Globulin 1.9 L Albumin/Globulin Ratio 0.7 L Blood Type O POSITIVE Antibody Screen Negative Fingerstick Blood Sugar Results: 191 Review of Systems - Constitutional Constitutional: Weakness - EENT Eyes: absent: Blurred Vision - Cardiovascular Cardiovascular: Chest Pain, Dyspnea, Leg Edema, Pedal Edema. absent: Orthopnea , Palpitations - Respiratory Respiratory: Cough, Dyspnea - Gastrointestinal Gastrointestinal: absent: Abdominal Pain, Cramping, Nausea, Vomiting - Neurological Neurological: absent: Confusion, Dizziness, Headaches, Syncope, Weakness - Endocrine Endocrine: Fatigue. absent: Palpitations Critical Care Progress Note - Nutrition Nutrition: Nutrition Category Date Time Status Liquid Diet [DIET] Diets 08/09/17 Breakfast Active Assessment/Plan - Assessment and Plan (Free Text) Assessment: 67 y/o male with past medical history of HTN, A.fib, Lung CA with mets admitted for due to sepsis and NSTEMI Plan: Pulm: Lung CA with mets * CT chest: Complete lack of aerated pulmonary tissue in the right upper and mid lungs. There is consolidation and possibly some fluid density within the right upper-mid thorax that is likely at least partially atelectatic in etiology given the presence of endobronchial material however neoplasm would certainly be possible. The lack of intravenous contrast is extremely limiting. Bilateral pleural effusions possibly loculated on the right. Atelectasis medial right lower lung. * Chest X-ray: Near complete opacification of the right sara thorax with residual mild aeration at the right lung base. Diffuse increased interstitial lung markings throughout the left lung with some scattered nodular densities throughout the left lung. Moderate to large loculated right pleural effusion. Trace left pleural effusion. * Echo: Moderate to severe pulmonary hypertension Medication/Management: * Ventri Mask * Duoneb 2.5mg INH RQ6 PRN * Pulmicort 0.5mg INH RQ 12H * Morphine 1mg IV Q4 prn and percocet 1 tab PO Q4H prn for pain management * Vanco 750mg IVPB Q12H and Zosyn 3.375gm IVPB Q6 (Loculated pleural effusion) Palliative consult: agreed to DNR/DNI and desires hospice care (08/11/17) CV: Dr. Teresa on board---> help appreciated Elevated troponin ECHO: Moderate valvular aortic stenosis, Moderate TR and stevie-septal hypokinesis. A. fibrillation Hx of hypertension Hypotensive * Lopressor 25mg PO BID * Dopamine 400mg IV Q24H prn * ASA 81mg PO daily ID: Sepsis Dr. Melendez on board--> Help appreciated Lactate on admission: 3.2, Blood culture: No growth Procalcitonin elevated Vanco 750mg IVPB Q12H Zosyn 3.375gm IVPB Q6 NS @ 70mls/hr Heme Anemia possible secondary to Lung CA * H/H: 6.7/22.1 * Transfuse 1 unit of PRBC (08/11/17) : UTI Dr. Melendez on board--> Help appreciated * UA hazy WBC 24 RBCs 69, bacteria many * Amikacin 500mg IVPB Q24H, to cover for ESBL positive Enterobacterciae. 08/09/17 , as per ID Neuro: Seizures: * Keppra 500mg PO BID * Thiamine Vitamin B1 Head CT: * Rounded foci of relative increased attenuation measuring 5 millimeter seen within the inferior right frontal lobe on series 4, image 34 with surrounding circumferential edema. This is of uncertain clinical etiology and may represent a metastatic lesion versus sequelae of trauma. Further evaluation with a pre and post-contrast enhanced MRI is recommended for further evaluation. Chronic microvascular ischemic change. Prophylaxis: DVT prophylaxis: Heparin 5,000 units SC Q8H SCDs contraindicated due peripheral edema GI Prophylaxis: Protonix susp 40mg daily
--- NOTE | 2017-08-11 16:49 | CP.PCM.PN ---
Subjective - Date & Time of Evaluation Date of Evaluation: 08/11/17 Time of Evaluation: 16:49 - Subjective Subjective: Patient was seen and examined at bedside in ICU. Patient is on Ventimask earlier c/o SOB/CHEST PAIN. SEEN BY PALLIATIVE CARE AND EVENTS NOTED. DISCUSSED WITH ICU STAFF. Objective - Vital Signs/Intake and Output Vital Signs (last 24 hours): Temp Pulse Resp BP Pulse Ox 97.0 F L 94 H 24 90/63 L 100 08/11/17 16:00 08/11/17 16:00 08/11/17 16:00 08/11/17 16:00 08/11/17 16:00 Intake and Output: 08/11/17 08/11/17 06:59 18:59 Intake Total 910 795 Output Total 290 745 Balance 620 50 - Medications Medications: Current Medications Albuterol Sulfate (Albuterol 0.083% Inhal Kelsi (2.5 Mg/3 Ml) Ud) 2.5 mg INH RQ6 PRN PRN Reason: Wheezing Last Admin: 08/11/17 07:38 Dose: 2.5 mg Aspirin (Aspirin Chewable) 81 mg PO DAILY EVAN Last Admin: 08/11/17 11:49 Dose: 81 mg Budesonide (Pulmicort Respules) 0.5 mg INH RQ12 EVAN Last Admin: 08/11/17 07:38 Dose: 0.5 mg Heparin Sodium (Porcine) (Heparin) 5,000 units SC Q8 EVAN Last Admin: 08/11/17 15:22 Dose: 5,000 units Vancomycin HCl (Vancocin 750mg/D5w 150 Ml) 150 mls @ 150 mls/hr IVPB Q12H [facility] Stop: 08/14/17 18:01 Last Admin: 08/11/17 05:00 Dose: 150 mls/hr Piperacillin Sod/Tazobactam Sod (Zosyn 3.375 Gm Iv Premix) 3.375 gm in 50 mls @ 100 mls/hr IVPB Q6 EVAN Last Admin: 08/11/17 11:49 Dose: 100 mls/hr Dopamine HCl/Dextrose (Dopamine 400mg/250ml D5w) 400 mg in 250 mls @ 4.082 mls/ hr IV .Q24H PRN; Protocol; 2 MCG/KG/MIN PRN Reason: TITRATE PER MD ORDER Last Titration: 08/10/17 16:00 Dose: 0 mcg/kg/min, 0 mls/hr Sodium Chloride (Sodium Chloride 0.9%) 1,000 mls @ 70 mls/hr IV .[id number] [facility] Last Admin: 08/11/17 00:30 Dose: 70 mls/hr Amikacin Sulfate 500 mg/ (Sodium Chloride) 102 mls @ 68 mls/hr IVPB Q24H [facility] Last Admin: 08/11/17 01:00 Dose: 68 mls/hr Ketorolac Tromethamine (Toradol) 15 mg IVP Q6 PRN PRN Reason: Pain, moderate (4-7) Stop: 08/12/17 12:48 Last Admin: 08/11/17 15:20 Dose: 15 mg Levetiracetam (Keppra) 500 mg PO BID [facility] Last Admin: 08/11/17 11:49 Dose: 500 mg Metoprolol Tartrate (Lopressor) 25 mg PO BID [facility] Last Admin: 08/09/17 08:19 Dose: Not Given Morphine Sulfate (Morphine) 1 mg IV Q4 PRN PRN Reason: Pain, severe (8-10) Last Admin: 08/11/17 11:49 Dose: 1 mg Oxycodone/Acetaminophen (Percocet 5/325 Mg Tab) 1 tab PO Q4H PRN PRN Reason: Pain, moderate (4-7) Stop: 08/13/17 15:46 Last Admin: 08/11/17 08:05 Dose: 1 tab Pantoprazole Sodium (Protonix Susp) 40 mg PO 0600 [facility] Last Admin: 08/11/17 05:41 Dose: 40 mg Thiamine HCl (Vitamin B1 Tab) 100 mg PO DAILY [facility] Last Admin: 08/11/17 11:49 Dose: 100 mg - Labs Labs: 08/11/17 07:59 08/11/17 07:59 PT 23.9 SECONDS (9.7-12.2) H 08/09/17 04:49 INR 2.1 08/09/17 04:49 APTT 63 SECONDS (21-34) H 08/09/17 04:49 - Constitutional Appears: No Acute Distress - Head Exam Head Exam: NORMAL INSPECTION - Eye Exam Eye Exam: PERRL - ENT Exam ENT Exam: Normal Oropharynx - Neck Exam Neck Exam: Normal Inspection - Respiratory Exam Respiratory Exam: Decreased Breath Sounds (RT SIDE.FEW RHONCHI RT SIDE.) - Cardiovascular Exam Cardiovascular Exam: Tachycardia, +S1, +S2 - GI/Abdominal Exam GI & Abdominal Exam: Soft, Normal Bowel Sounds. absent: Organomegaly - Extremities Exam Extremities Exam: Pedal Edema. absent: Calf Tenderness - Neurological Exam Neurological Exam: Awake, CN II-XII Intact, Oriented x3 - Psychiatric Exam Psychiatric exam: Depressed - Skin Skin Exam: Dry, Warm Assessment and Plan (1) Sepsis Assessment & Plan: patient on dopamine as noted. On titrating doses. BLOOD CULTURES NEGATIVE TO DATE. Continue IV Zosyn 3.375 every 8 hourly. Continue IV vancomycin 750 mg every 12 hourly. Monitor Vanco trough level prior to the fourth dose and keep between 10 and 20. Source of sepsis probably aspiration superimposed metastatic lung CA r/o urosepsis Follow-up cultures to adjust antibiotics. Status: Acute (2) Leukocytosis Assessment & Plan: wbc 16.4 IMPROVING H/H 6.7/22.1 DECREASED . PLATELETS 98K DECREASING. cONTINUE iv zOSYN 3.375 EVERY 8 HOURLY. cONTINUE iv VANCOMYCIN 750 MG EVERY 12 HOURLY. FOLLOW-UP vANCO TROUGH LEVEL IN A.M. DC iv AMIKACIN.08/11/17. blood transfusion as per waste minimization technician team. Status: Acute (3) Pneumonia Assessment & Plan: chest x-ray 08/11/17; dense opacification right upper lobe. Increased interstitial markings left hemithorax. Next small bilateral pleural effusions. Small left basilar atelectasis/and or infiltrate. Patient on IV Zosyn Patient on IV vancomycin. Follow-up sputum Gram stain and culture to adjust antibiotics. Status: Acute (4) NSTEMI (non-ST elevated myocardial infarction) Status: Acute (5) UTI (urinary tract infection) Assessment & Plan: urine with pyuria and moderate WBCs. Follow-up cultures. Status: Acute (6) Metastatic primary lung cancer Status: Acute (7) Syncope and collapse Status: Acute
--- NOTE | 2017-08-11 17:37 | CP.PCM.PN ---
Subjective - Date & Time of Evaluation Date of Evaluation: 08/11/17 Time of Evaluation: 14:20 - Subjective Subjective: Patient was seen and examined at bedside in ICU. Patient is on Ventimask. Family is present at bedside. Objective - Vital Signs/Intake and Output Vital Signs (last 24 hours): Temp Pulse Resp BP Pulse Ox 97.0 F L 94 H 24 90/63 L 100 08/11/17 16:00 08/11/17 16:00 08/11/17 16:00 08/11/17 16:00 08/11/17 16:00 Intake and Output: 08/11/17 08/11/17 06:59 18:59 Intake Total 910 795 Output Total 290 745 Balance 620 50 - Medications Medications: Current Medications Albuterol Sulfate (Albuterol 0.083% Inhal Kelsi (2.5 Mg/3 Ml) Ud) 2.5 mg INH RQ6 PRN PRN Reason: Wheezing Last Admin: 08/11/17 07:38 Dose: 2.5 mg Aspirin (Aspirin Chewable) 81 mg PO DAILY EVAN Last Admin: 08/11/17 11:49 Dose: 81 mg Budesonide (Pulmicort Respules) 0.5 mg INH RQ12 EVAN Last Admin: 08/11/17 07:38 Dose: 0.5 mg Heparin Sodium (Porcine) (Heparin) 5,000 units SC Q8 EVAN Last Admin: 08/11/17 15:22 Dose: 5,000 units Vancomycin HCl (Vancocin 750mg/D5w 150 Ml) 150 mls @ 150 mls/hr IVPB Q12H EVAN Stop: 08/14/17 18:01 Last Admin: 08/11/17 17:14 Dose: 150 mls/hr Piperacillin Sod/Tazobactam Sod (Zosyn 3.375 Gm Iv Premix) 3.375 gm in 50 mls @ 100 mls/hr IVPB Q6 EVAN Last Admin: 08/11/17 17:14 Dose: 100 mls/hr Dopamine HCl/Dextrose (Dopamine 400mg/250ml D5w) 400 mg in 250 mls @ 4.082 mls/ hr IV .Q24H PRN; Protocol; 2 MCG/KG/MIN PRN Reason: TITRATE PER MD ORDER Last Titration: 08/10/17 16:00 Dose: 0 mcg/kg/min, 0 mls/hr Sodium Chloride (Sodium Chloride 0.9%) 1,000 mls @ 70 mls/hr IV .[id number] [facility] Last Admin: 08/11/17 17:13 Dose: Not Given Amikacin Sulfate 500 mg/ (Sodium Chloride) 102 mls @ 68 mls/hr IVPB Q24H [facility] Last Admin: 08/11/17 01:00 Dose: 68 mls/hr Ketorolac Tromethamine (Toradol) 15 mg IVP Q6 PRN PRN Reason: Pain, moderate (4-7) Stop: 08/12/17 12:48 Last Admin: 08/11/17 15:20 Dose: 15 mg Levetiracetam (Keppra) 500 mg PO BID [facility] Last Admin: 08/11/17 17:13 Dose: 500 mg Metoprolol Tartrate (Lopressor) 25 mg PO BID [facility] Last Admin: 08/09/17 08:19 Dose: Not Given Morphine Sulfate (Morphine) 1 mg IV Q4 PRN PRN Reason: Pain, severe (8-10) Last Admin: 08/11/17 17:17 Dose: 1 mg Oxycodone/Acetaminophen (Percocet 5/325 Mg Tab) 1 tab PO Q4H PRN PRN Reason: Pain, moderate (4-7) Stop: 08/13/17 15:46 Last Admin: 08/11/17 08:05 Dose: 1 tab Pantoprazole Sodium (Protonix Susp) 40 mg PO 0600 [facility] Last Admin: 08/11/17 05:41 Dose: 40 mg Thiamine HCl (Vitamin B1 Tab) 100 mg PO DAILY [facility] Last Admin: 08/11/17 11:49 Dose: 100 mg - Labs Labs: 08/11/17 07:59 08/11/17 07:59 PT 23.9 SECONDS (9.7-12.2) H 08/09/17 04:49 INR 2.1 08/09/17 04:49 APTT 63 SECONDS (21-34) H 08/09/17 04:49 - Head Exam Head Exam: ATRAUMATIC, NORMOCEPHALIC - Eye Exam Eye Exam: Normal appearance - Respiratory Exam Respiratory Exam: Decreased Breath Sounds - Cardiovascular Exam Cardiovascular Exam: REGULAR RHYTHM, +S1, +S2 - GI/Abdominal Exam GI & Abdominal Exam: Soft - Extremities Exam Extremities Exam: absent: Pedal Edema Assessment and Plan (1) Metastatic primary lung cancer Assessment & Plan: Poor prognosis. Palliative care consult seen. Subsequently patient and family decided on DNR/DNI status.. Status: Acute (2) Atrial fibrillation Assessment & Plan: Patient is not a candidate for anticoagulation because of risk of intracranial hemorrhage Status: Acute (3) NSTEMI (non-ST elevated myocardial infarction) Assessment & Plan: As mentioned above patient is not a candidate for anticoagulation. Continue antiplatelet therapy.. Status: Acute
--- NOTE | 2017-08-11 18:53 | CP.PCM.PN ---
<Rizwan Jarrett - Last Filed: 08/11/17 19:03> Subjective - Date & Time of Evaluation Date of Evaluation: 08/11/17 Time of Evaluation: 10:55 - Subjective Subjective: Cardiology Progress Note-Dr. Teresa's service Pt seen and examined in no acute distress. Per critical care team, patient would benefit from palliative counseling services in light of presentation. Patient with increased work of breathing noted. ROS not obtained at this time due to patient's critical status. Objective - Vital Signs/Intake and Output Vital Signs (last 24 hours): Temp Pulse Resp BP Pulse Ox 97.0 F L 100 H 19 88/60 L 97 08/11/17 16:00 08/11/17 18:00 08/11/17 18:00 08/11/17 18:00 08/11/17 18:00 Intake and Output: 08/11/17 08/11/17 06:59 18:59 Intake Total 910 995 Output Total 290 945 Balance 620 50 - Medications Medications: Current Medications Albuterol Sulfate (Albuterol 0.083% Inhal Kelsi (2.5 Mg/3 Ml) Ud) 2.5 mg INH RQ6 PRN PRN Reason: Wheezing Last Admin: 08/11/17 07:38 Dose: 2.5 mg Aspirin (Aspirin Chewable) 81 mg PO DAILY [facility] Last Admin: 08/11/17 11:49 Dose: 81 mg Budesonide (Pulmicort Respules) 0.5 mg INH RQ12 [facility] Last Admin: 08/11/17 07:38 Dose: 0.5 mg Heparin Sodium (Porcine) (Heparin) 5,000 units SC Q8 [facility] Last Admin: 08/11/17 15:22 Dose: 5,000 units Vancomycin HCl (Vancocin 750mg/D5w 150 Ml) 150 mls @ 150 mls/hr IVPB Q12H [facility] Stop: 08/14/17 18:01 Last Admin: 08/11/17 17:14 Dose: 150 mls/hr Piperacillin Sod/Tazobactam Sod (Zosyn 3.375 Gm Iv Premix) 3.375 gm in 50 mls @ 100 mls/hr IVPB Q6 [facility] Last Admin: 08/11/17 17:14 Dose: 100 mls/hr Dopamine HCl/Dextrose (Dopamine 400mg/250ml D5w) 400 mg in 250 mls @ 4.082 mls/ hr IV .Q24H PRN; Protocol; 2 MCG/KG/MIN PRN Reason: TITRATE PER MD ORDER Last Titration: 08/10/17 16:00 Dose: 0 mcg/kg/min, 0 mls/hr Sodium Chloride (Sodium Chloride 0.9%) 1,000 mls @ 70 mls/hr IV .[id number] [facility] Last Admin: 08/11/17 17:13 Dose: Not Given Amikacin Sulfate 500 mg/ (Sodium Chloride) 102 mls @ 68 mls/hr IVPB Q24H [facility] Last Admin: 08/11/17 01:00 Dose: 68 mls/hr Ketorolac Tromethamine (Toradol) 15 mg IVP Q6 PRN PRN Reason: Pain, moderate (4-7) Stop: 08/12/17 12:48 Last Admin: 08/11/17 15:20 Dose: 15 mg Levetiracetam (Keppra) 500 mg PO BID [facility] Last Admin: 08/11/17 17:13 Dose: 500 mg Metoprolol Tartrate (Lopressor) 25 mg PO BID [facility] Last Admin: 08/09/17 08:19 Dose: Not Given Morphine Sulfate (Morphine) 1 mg IV Q4 PRN PRN Reason: Pain, severe (8-10) Last Admin: 08/11/17 17:17 Dose: 1 mg Oxycodone/Acetaminophen (Percocet 5/325 Mg Tab) 1 tab PO Q4H PRN PRN Reason: Pain, moderate (4-7) Stop: 08/13/17 15:46 Last Admin: 08/11/17 08:05 Dose: 1 tab Pantoprazole Sodium (Protonix Susp) 40 mg PO 0600 [facility] Last Admin: 08/11/17 05:41 Dose: 40 mg Thiamine HCl (Vitamin B1 Tab) 100 mg PO DAILY [facility] Last Admin: 08/11/17 11:49 Dose: 100 mg - Labs Labs: 08/11/17 07:59 08/11/17 07:59 PT 23.9 SECONDS (9.7-12.2) H 08/09/17 04:49 INR 2.1 08/09/17 04:49 APTT 63 SECONDS (21-34) H 08/09/17 04:49 - Constitutional Appears: Chronically Ill - Head Exam Head Exam: ATRAUMATIC - Eye Exam Eye Exam: EOMI, PERRL - ENT Exam ENT Exam: Mucous Membranes Moist - Respiratory Exam Respiratory Exam: Decreased Breath Sounds. absent: NORMAL BREATHING PATTERN Additional comments: increased work of breathing - GI/Abdominal Exam GI & Abdominal Exam: Soft - Neurological Exam Neurological Exam: Awake - Psychiatric Exam Psychiatric exam: Flat Affect - Skin Skin Exam: Dry, Warm Assessment and Plan - Assessment and Plan (Free Text) Assessment: NSTEMI Not a candidate for anticoagulant therapy due to anemia as well as increased risk of bleed with CT findings noted 08/09 Atrial Fibrillation Pt not a candidate due to increased risk of intracranial hemorrhage ASA daily Metastatic Lung Cancer Considerations for Palliative care. F/U recommendations Poor prognosis Systolic CHF (EF 25-30%) ECHO: Moderate valvular aortic stenosis, Moderate TR and stevie-septal hypokinesis. Hypotension Pressors for BP support IV fluids as tolerated- Monitor for signs of fluid overload Anemia Hgb 6.7 To be transfused today Management per critical care team Prophylaxis ASA daily Anticoagulation contraindicated due to anemia and increased risk of intracranial bleeding Protonix 40 mg PO <Espinoza Teresa - Last Filed: 08/11/17 21:39> Objective - Vital Signs/Intake and Output Vital Signs (last 24 hours): Temp Pulse Resp BP Pulse Ox 97.3 F L 80 14 103/73 100 08/11/17 20:00 08/11/17 21:00 08/11/17 21:00 08/11/17 20:51 08/11/17 21:00 Intake and Output: 08/11/17 08/12/17 18:59 06:59 Intake Total 995 210 Output Total 945 70 Balance 50 140 - Medications Medications: Current Medications Albuterol Sulfate (Albuterol 0.083% Inhal Kelsi (2.5 Mg/3 Ml) Ud) 2.5 mg INH RQ6 PRN PRN Reason: Wheezing Last Admin: 08/11/17 07:38 Dose: 2.5 mg Aspirin (Aspirin Chewable) 81 mg PO DAILY [facility] Last Admin: 08/11/17 11:49 Dose: 81 mg Budesonide (Pulmicort Respules) 0.5 mg INH RQ12 [facility] Last Admin: 08/11/17 20:14 Dose: Not Given Heparin Sodium (Porcine) (Heparin) 5,000 units SC Q8 [facility] Last Admin: 08/11/17 15:22 Dose: 5,000 units Vancomycin HCl (Vancocin 750mg/D5w 150 Ml) 150 mls @ 150 mls/hr IVPB Q12H [facility] Stop: 08/14/17 18:01 Last Admin: 08/11/17 17:14 Dose: 150 mls/hr Piperacillin Sod/Tazobactam Sod (Zosyn 3.375 Gm Iv Premix) 3.375 gm in 50 mls @ 100 mls/hr IVPB Q6 [facility] Last Admin: 08/11/17 17:14 Dose: 100 mls/hr Dopamine HCl/Dextrose (Dopamine 400mg/250ml D5w) 400 mg in 250 mls @ 4.082 mls/ hr IV .Q24H PRN; Protocol; 2 MCG/KG/MIN PRN Reason: TITRATE PER MD ORDER Last Titration: 08/10/17 16:00 Dose: 0 mcg/kg/min, 0 mls/hr Sodium Chloride (Sodium Chloride 0.9%) 1,000 mls @ 70 mls/hr IV .[id number] [facility] Last Admin: 08/11/17 17:13 Dose: Not Given Levetiracetam (Keppra) 500 mg PO BID [facility] Last Admin: 08/11/17 17:13 Dose: 500 mg Metoprolol Tartrate (Lopressor) 25 mg PO BID [facility] Last Admin: 08/09/17 08:19 Dose: Not Given Morphine Sulfate (Morphine) 2 mg IV Q4 PRN PRN Reason: Pain, severe (8-10) Last Admin: 08/11/17 19:45 Dose: 2 mg Oxycodone/Acetaminophen (Percocet 5/325 Mg Tab) 1 tab PO Q4H PRN PRN Reason: Pain, moderate (4-7) Stop: 08/13/17 15:46 Last Admin: 08/11/17 08:05 Dose: 1 tab Pantoprazole Sodium (Protonix Susp) 40 mg PO 0600 [facility] Last Admin: 08/11/17 05:41 Dose: 40 mg Thiamine HCl (Vitamin B1 Tab) 100 mg PO DAILY [facility] Last Admin: 08/11/17 11:49 Dose: 100 mg - Labs Labs: 08/11/17 07:59 08/11/17 07:59 PT 23.9 SECONDS (9.7-12.2) H 08/09/17 04:49 INR 2.1 08/09/17 04:49 APTT 63 SECONDS (21-34) H 08/09/17 04:49 Assessment and Plan - Assessment and Plan (Free Text) Plan: Patient seen and evaluated with the medical insurance coding specialist Plan of care discussed and documented
--- NOTE | 2017-08-11 21:59 | CARD ---
APPROVED REPORT EKG Measurement Heart [id number] <Conclusion> Atrial flutter with variable AV block Left axis deviation Inferior infarct, age undetermined Anteroseptal infarct, age undetermined T wave abnormality, consider lateral ischemia Prolonged QT Abnormal ECG
[2017-08-12] MEDS: Sodium Chloride 0.9% 1,000 ML IV SCH ×2 (02:56→17:47)
[2017-08-12] MEDS: Pantoprazole 40 mg Susp UD PO SCH (05:29)
[2017-08-12] MEDS: Piperacill/Tazo 3.375gm in Dex 3.375 GM/50 ML BAG IVPB SCH ×3 (05:29→17:57)
[2017-08-12] MEDS: Vancomycin 750mg/D5W 150 ml 150 ML IVPB SCH ×2 (05:52→17:55)
[2017-08-12 06:34] LABS: BASO % 0.2 % (0.0-2.0); EOS % 0.1 % (0.0-4.0); HEMATOCRIT 29.6 % (35.0-51.0); LYMPH # 0.4 K/uL (1.0-4.3); LYMPH % 2.4 % (20.0-40.0); MEAN CELL VOLUME 85.8 fL (80.0-94.0); MEAN CORPUSCULAR HEMOGLOBIN 26.6 pg (27.0-31.0); MEAN PLATELET VOLUME 8.5 fL (7.2-11.7); MONO # 1.1 K/uL (0.0-0.8); MONO % 6.5 % (0.0-10.0); PLATELET COUNT 96 K/uL (130-400); RED CELL DISTRIBUTION WIDTH 18.5 % (11.5-14.5); WHITE BLOOD COUNT 17.6 K/uL (4.8-10.8)
[2017-08-12 06:45] LABS: CHLORIDE 103 mmol/L (98-107); SODIUM 138 mmol/L (132-148)
[2017-08-12 06:46] LABS: POTASSIUM 3.8 mmol/L (3.6-5.2)
[2017-08-12 06:47] LABS: GFR AFRICAN-AMERICAN > 60
[2017-08-12 06:48] LABS: ALB/GLOB RATIO 0.7 (1.0-2.1); ALKALINE PHOSPHATASE 94 U/L (38-126); ALT/SGPT 26 U/L (21-72); AST/SGOT 20 U/L (17-59); BILIRUBIN,TOTAL 0.5 mg/dL (0.2-1.3); BLOOD UREA NITROGEN 17 mg/dL (9-20); CARBON DIOXIDE 24 mmol/L (22-30); GLUCOSE,RANDOM 74 mg/dL (75-110); TOTAL PROTEIN 5.2 g/dL (6.3-8.3)
[2017-08-12 06:49] LABS: CALCIUM 6.9 mg/dl (8.6-10.4); MAGNESIUM 1.9 mg/dL (1.6-2.3)
[2017-08-12] MEDS: Budesonide 0.5 mg/2 ml Inhal Susp UD INH SCH ×2 (07:35→19:40)
[2017-08-12] MEDS: Albuterol 0.083% Inhal Sol (2.5 mg/3 mL) UD INH PRN (07:35)
[2017-08-12 08:30] LABS: NEUTROPHIL 93 % (50-75); TOTAL CELLS COUNTED 100
[2017-08-12 08:31] LABS: LARGE PLATELETS PRESENT
--- NOTE | 2017-08-12 09:50 | VASCLAB ---
PROCEDURE: Lower Extremity Venous Duplex Exam. HISTORY: edema, lung cancer PRIORS: None. TECHNIQUE: Bilateral common femoral, femoral, popliteal and posterior tibial, peroneal and great saphenous veins were evaluated. Flow was assessed with color Doppler, compressibility, assessment of phasic flow and augmentation response. Report prepared by Dayday Fink, ALEJANDRO, RVT FINDINGS: RIGHT: 1. Common Femoral Vein: 1.1. Compressibility - Fully compressible: Thrombus - None : Flow - Phasic: Augmentation -Normal: Reflux - None. 2. Femoral Vein: 2.1. Compressibility - Fully compressible: Thrombus - None : Flow - Phasic: Augmentation -Normal: Reflux - None. 3. Popliteal Vein: 3.1. Compressibility - Fully compressible: Thrombus - None : Flow - Phasic: Augmentation -Normal: Reflux - None. 4. Posterior Tibial Vein: 4.1. Compressibility - Fully compressible: Thrombus - None: Flow - Phasic: Augmentation -Normal: Reflux - None. 5. Peroneal Vein: 5.1. Compressibility - Fully compressible: Thrombus - None: Flow - Phasic: Augmentation -Normal: Reflux - None. 6. Great Saphenous Vein: 6.1. Compressibility - Fully compressible: Thrombus - None: Flow - Phasic: Augmentation - Normal: Reflux - None. LEFT: 1. Common Femoral Vein: 1.1. Compressibility - Fully compressible: Thrombus - None: Flow - Phasic: Augmentation -Normal: Reflux - None. 2. Femoral Vein: 2.1. Compressibility - Fully compressible: Thrombus - None: Flow - Phasic: Augmentation -Normal: Reflux - None. 3. Popliteal Vein: 3.1. Compressibility - Fully compressible: Thrombus - None : Flow - Phasic: Augmentation -Normal: Reflux - None. 4. Posterior Tibial Vein: 4.1. Compressibility - Fully compressible: Thrombus - None: Flow - Phasic: Augmentation -Normal: Reflux - None. 5. Peroneal Vein: 5.1. Compressibility - Fully compressible: Thrombus - None: Flow - Phasic: Augmentation -Normal: Reflux - None. 6. Great Saphenous Vein: 6.1. Compressibility - Fully compressible: Thrombus - None: Flow - Phasic: Augmentation - Normal: Reflux - None. OTHER FINDINGS: Right: None significant. Left: None significant. IMPRESSION: Right: No evidence of deep or superficial vein thrombosis of the right lower extremity. Normal valve function noted of the right side. Left: No evidence of deep or superficial vein thrombosis of the left lower extremity. Normal valve function noted of the left side.
[2017-08-12] MEDS: levETIRAcetam 100 mg/ml (5ml) Oral Syringe PO SCH ×2 (09:53→18:00)
[2017-08-12] MEDS ORDERED: Morphine 4 MG/ML VIAL IVP PRN (10:38)
--- NOTE | 2017-08-12 12:54 | PN ---
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 PHYSICAL EXAMINATION: VITAL SIGNS: Blood pressure 95/65, mean arterial pressure of 71, respiratory rate 18, temperature afebrile, pulse rate 121. The patient is a DNR and DNI. The patient is comfortable, awake, alert, oriented to person and place. Does not complaining any pain. He moves all four extremities against the gravity. His workup MRI of the brain is still pending to further analyzing this brain to study the extent of his metastatic process. EEG been reviewed showed diffuse theta activities without any paroxysmal activities or focal slowing noted. Continue Keppra for now. Continue the present management. The patient agreed for MRI of the brain. I request again to to have it done today. Joey Ricci MD
--- NOTE | 2017-08-12 12:58 | CP.PCM.PN ---
Subjective - Date & Time of Evaluation Date of Evaluation: 08/12/17 Time of Evaluation: 13:00 - Subjective Subjective: Patient seen and examined at bedside in ICU Patient complains of for pain in the throat Also complains of mild shortness of breath. Objective - Vital Signs/Intake and Output Vital Signs (last 24 hours): Temp Pulse Resp BP Pulse Ox 98 F 94 H 24 90/63 L 98 08/12/17 08:00 08/12/17 08:00 08/12/17 08:00 08/12/17 08:00 08/12/17 08:00 Intake and Output: 08/12/17 08/12/17 06:59 18:59 Intake Total 1120 280 Output Total 330 Balance 790 280 - Medications Medications: Current Medications Albuterol Sulfate (Albuterol 0.083% Inhal Kelsi (2.5 Mg/3 Ml) Ud) 2.5 mg INH RQ6 PRN PRN Reason: Wheezing Last Admin: 08/12/17 07:35 Dose: 2.5 mg Aspirin (Aspirin Chewable) 81 mg PO DAILY [facility] Last Admin: 08/12/17 09:45 Dose: 81 mg Budesonide (Pulmicort Respules) 0.5 mg INH RQ12 [facility] Last Admin: 08/12/17 07:35 Dose: 0.5 mg Heparin Sodium (Porcine) (Heparin) 5,000 units SC Q8 [facility] Last Admin: 08/12/17 05:30 Dose: 5,000 units Vancomycin HCl (Vancocin 750mg/D5w 150 Ml) 150 mls @ 150 mls/hr IVPB Q12H [facility] Stop: 08/14/17 18:01 Last Admin: 08/12/17 05:52 Dose: 150 mls/hr Piperacillin Sod/Tazobactam Sod (Zosyn 3.375 Gm Iv Premix) 3.375 gm in 50 mls @ 100 mls/hr IVPB Q6 [facility] Last Admin: 08/12/17 12:17 Dose: 100 mls/hr Sodium Chloride (Sodium Chloride 0.9%) 1,000 mls @ 70 mls/hr IV .[id number] [facility] Last Admin: 08/12/17 02:56 Dose: 70 mls/hr Levetiracetam (Keppra) 500 mg PO BID [facility] Last Admin: 09/26/17 09:53 Dose: 500 mg Metoprolol Tartrate (Lopressor) 25 mg PO BID [facility] Last Admin: 08/09/17 08:19 Dose: Not Given Morphine Sulfate (Morphine) 4 mg IVP Q2H PRN PRN Reason: Pain, severe (8-10) Last Admin: 08/12/17 12:13 Dose: 4 mg Oxycodone/Acetaminophen (Percocet 5/325 Mg Tab) 1 tab PO Q4H PRN PRN Reason: Pain, moderate (4-7) Stop: 08/13/17 15:46 Last Admin: 08/11/17 22:47 Dose: 1 tab Pantoprazole Sodium (Protonix Susp) 40 mg PO 0600 [facility] Last Admin: 08/12/17 05:29 Dose: 40 mg Thiamine HCl (Vitamin B1 Tab) 100 mg PO DAILY [facility] Last Admin: 08/12/17 09:45 Dose: 100 mg - Labs Labs: 08/12/17 06:24 08/12/17 06:24 PT 23.9 SECONDS (9.7-12.2) H 08/09/17 04:49 INR 2.1 08/09/17 04:49 APTT 63 SECONDS (21-34) H 08/09/17 04:49 - Head Exam Head Exam: ATRAUMATIC, NORMOCEPHALIC - Eye Exam Eye Exam: Normal appearance - ENT Exam ENT Exam: Mucous Membranes Moist - Respiratory Exam Respiratory Exam: Decreased Breath Sounds - Cardiovascular Exam Cardiovascular Exam: REGULAR RHYTHM, +S1, +S2 - GI/Abdominal Exam GI & Abdominal Exam: Soft. absent: Tenderness - Extremities Exam Extremities Exam: Pedal Edema Assessment and Plan (1) Metastatic primary lung cancer Status: Acute (2) Atrial fibrillation Status: Acute (3) NSTEMI (non-ST elevated myocardial infarction) Status: Acute - Assessment and Plan (Free Text) Plan: Continue current medical management Hospice evaluation is in progress Change the pain medication to Dilaudid when necessary Discussed the plan of care with the family at bedside Discussed with the ICU staff
--- NOTE | 2017-08-12 17:00 | CP.CCUPN ---
<Fam Schwartz E - Last Filed: 08/12/17 17:21> CCU Subjective - Physician Review Subjective (Free Text): Patient was seen and examined at bedside. Patient still reports difficulty with breathing. Patient denies nausea, vomiting, fever, chills, headache and lightheadedness. Patient remains on venti mask. Patient continue to refuse bipap. CCU Objective - Vital Signs / Intake & Output Vital Signs (Last 4 hours): Vital Signs Pulse Resp BP Pulse Ox 08/12/17 15:00 104 H 19 107/68 98 08/12/17 14:00 101 H 21 116/73 100 08/12/17 13:00 99 H 18 120/79 99 Intake and Output (Last 8hrs): Intake & Output 08/12/17 08/12/17 08/12/17 06:59 14:59 22:59 Intake Total 740 490 70 Output Total 230 Balance 510 490 70 Weight 149 lb 6 oz Intake: Intake, IV Amount 690 490 70 Left PICC 550 490 70 Right Antecubital 140 Oral 50 Output: Urine 230 Urethral (Calix) 230 Other: # Bowel Movements 0 - Physical Exam Head: Positive for: Atraumatic, Normocephalic Extroacular Muscles: Positive for: EOMI Mouth: Positive for: Moist Mucous Membranes Respiratory/Chest: Positive for: Wheezes, Decreased Breath Sounds Cardiovascular: Positive for: Regular Rate and Rhythm, Normal S1, S2 Abdomen: Positive for: Normal Bowel Sounds. Negative for: Tenderness, Distention Upper Extremity: Positive for: Edema (improving ) Lower Extremity: Positive for: Edema Neurological: Positive for: GCS=15, Speech Normal Skin: Positive for: Warm Psychiatric: Positive for: Alert, Oriented x 3 - Medications Active Medications: Active Medications Generic Name Dose Route Start Last Admin Trade Name Freq PRN Reason Stop Dose Admin Albuterol Sulfate 2.5 mg 08/09/17 06:54 08/12/17 07:35 Albuterol 0.083% Inhal Kelsi (2.5 Mg/3 Ml) Ud INH 2.5 mg RQ6 PRN Administration Wheezing Aspirin 81 mg 08/09/17 10:00 08/12/17 09:45 Aspirin Chewable PO 81 mg DAILY EVAN Administration Budesonide 0.5 mg 08/09/17 08:00 08/12/17 07:35 Pulmicort Respules INH 0.5 mg RQ12 EVAN Administration Heparin Sodium (Porcine) 5,000 units 08/09/17 22:00 08/12/17 05:30 Heparin SC 5,000 units Q8 EVAN Administration Hydromorphone HCl 1 mg 08/12/17 13:43 08/12/17 14:04 Dilaudid IVP 1 mg Q2H PRN Administration Pain, severe (8-10) Vancomycin HCl 150 mls @ 150 mls/hr 08/09/17 18:00 08/12/17 05:52 Vancocin 750mg/D5w 150 Ml IVPB 08/14/17 18:01 150 mls/hr Q12H EVAN Administration Piperacillin Sod/Tazobactam Sod 3.375 gm in 50 mls @ 100 mls/hr 08/09/17 12: 00 08/12/17 12:17 Zosyn 3.375 Gm Iv Premix IVPB 100 mls/hr Q6 EVAN Administration Sodium Chloride 1,000 mls @ 70 mls/hr 08/09/17 17:00 08/12/17 02:56 Sodium Chloride 0.9% IV 70 mls/hr .[id number] EVAN Administration Levetiracetam 500 mg 08/09/17 18:00 08/12/17 09:53 Keppra PO 500 mg BID EVAN Administration Metoprolol Tartrate 25 mg 08/09/17 10:00 08/09/17 08:19 Lopressor PO Not Given BID EVAN Oxycodone/Acetaminophen 1 tab 08/10/17 15:45 08/11/17 22:47 Percocet 5/325 Mg Tab PO 08/13/17 15:46 1 tab Q4H PRN Administration Pain, moderate (4-7) Pantoprazole Sodium 40 mg 08/10/17 06:00 08/12/17 05:29 Protonix Susp PO 40 mg 0600 EVAN Administration Thiamine HCl 100 mg 08/11/17 10:00 08/12/17 09:45 Vitamin B1 Tab PO 100 mg DAILY EVAN Administration - Patient Studies Lab Studies: Microbiology Studies 08/11/17 17:16 Urine Culture - Final Urine,Calix No Growth (<1,000 CFU/ML) 08/09/17 07:30 Blood Culture - Preliminary Blood NO GROWTH AFTER 3 DAYS 08/09/17 07:00 Blood Culture - Preliminary Blood NO GROWTH AFTER 3 DAYS 08/10/17 01:30 Blood Culture - Preliminary Blood-Thru Central Line NO GROWTH AFTER 48 HOURS 08/10/17 01:00 Blood Culture - Preliminary Blood-Thru Central Line NO GROWTH AFTER 48 HOURS Lab Studies 08/12/17 08/12/17 08/12/17 Range/Units 06:24 06:24 06:24 WBC 17.6 H (4.8-10.8) K/uL RBC 3.45 L (4.40-5.90) Mil/uL Hgb 9.2 L D (12.0-18.0) g/dL Hct 29.6 L (35.0-51.0) % MCV 85.8 (80.0-94.0) fL MCH 26.6 L (27.0-31.0) pg MCHC 31.0 L (33.0-37.0) g/dL RDW 18.5 H (11.5-14.5) % Plt Count 96 L (130-400) K/uL MPV 8.5 (7.2-11.7) fL Neut % (Auto) 90.8 H (50.0-75.0) % Lymph % (Auto) 2.4 L (20.0-40.0) % Bowie % (Auto) 6.5 (0.0-10.0) % Eos % (Auto) 0.1 (0.0-4.0) % Baso % (Auto) 0.2 (0.0-2.0) % Neut # 16.0 H (1.8-7.0) K/uL Lymph # 0.4 L (1.0-4.3) K/uL Bowie # 1.1 H (0.0-0.8) K/uL Eos # 0.0 (0.0-0.7) K/uL Baso # 0.0 (0.0-0.2) K/uL Neutrophils % (Manual) 93 H (50-75) % Band Neutrophils % 2 (0-2) % Lymphocytes % (Manual) 1 L (20-40) % Monocytes % (Manual) 4 (0-10) % Platelet Estimate Decreased L (NORMAL) Large Platelets Present Hypochromasia (manual) Slight Anisocytosis (manual) Slight Sodium 138 (132-148) mmol/L Potassium 3.8 (3.6-5.2) mmol/L Chloride 103 (98-107) mmol/L Carbon Dioxide 24 (22-30) mmol/L Anion Gap 14 (10-20) BUN 17 (9-20) mg/dL Creatinine 0.7 L (0.8-1.5) MG/DL Est GFR ( Amer) > 60 Est GFR (Non-Af Amer) > 60 Random Glucose 74 L (75-110) mg/dL Calcium 6.9 L (8.6-10.4) mg/dl Phosphorus 3.0 (2.5-4.5) mg/dL Magnesium 1.9 (1.6-2.3) mg/dL Total Bilirubin 0.5 (0.2-1.3) mg/dL AST 20 (17-59) U/L ALT 26 (21-72) U/L Alkaline Phosphatase 94 (38-126) U/L Total Protein 5.2 L (6.3-8.3) g/dL Albumin 2.2 L D (3.5-5.0) g/dL Globulin 3.1 (2.2-3.9) gm/dL Albumin/Globulin Ratio 0.7 L (1.0-2.1) Vancomycin Trough 17.1 H (5.0-10.0) ug/mL Laboratory Results - last 24 hr 08/12/17 08/12/17 08/12/17 06:24 06:24 06:24 WBC 17.6 H RBC 3.45 L Hgb 9.2 L D Hct 29.6 L MCV 85.8 MCH 26.6 L MCHC 31.0 L RDW 18.5 H Plt Count 96 L MPV 8.5 Neut % (Auto) 90.8 H Lymph % (Auto) 2.4 L Bowie % (Auto) 6.5 Eos % (Auto) 0.1 Baso % (Auto) 0.2 Neut # 16.0 H Lymph # 0.4 L Bowie # 1.1 H Eos # 0.0 Baso # 0.0 Neutrophils % (Manual) 93 H Band Neutrophils % 2 Lymphocytes % (Manual) 1 L Monocytes % (Manual) 4 Platelet Estimate Decreased L Large Platelets Present Hypochromasia (manual) Slight Anisocytosis (manual) Slight Sodium 138 Potassium 3.8 Chloride 103 Carbon Dioxide 24 Anion Gap 14 BUN 17 Creatinine 0.7 L Est GFR ( Amer) > 60 Est GFR (Non-Af Amer) > 60 Random Glucose 74 L Calcium 6.9 L Phosphorus 3.0 Magnesium 1.9 Total Bilirubin 0.5 AST 20 ALT 26 Alkaline Phosphatase 94 Total Protein 5.2 L Albumin 2.2 L D Globulin 3.1 Albumin/Globulin Ratio 0.7 L Vancomycin Trough 17.1 H Fingerstick Blood Sugar Results: 191 Review of Systems - Constitutional Constitutional: Weakness. absent: Fever, Chills - EENT Ears: absent: Dizziness - Cardiovascular Cardiovascular: Chest Pain, Dyspnea, Dyspnea on Exertion, Leg Edema, Pedal Edema - Respiratory Respiratory: Cough, Dyspnea, Dyspnea on Exertion, Chest Congestion - Gastrointestinal Gastrointestinal: absent: Abdominal Pain, Cramping, Diarrhea, Nausea, Vomiting - Neurological Neurological: Weakness. absent: Dizziness Critical Care Progress Note - Nutrition Nutrition: Nutrition Category Date Time Status Liquid Diet [DIET] Diets 08/09/17 Breakfast Active Assessment/Plan - Assessment and Plan (Free Text) Assessment: 67 y/o male with past medical history of HTN, A.fib, Lung CA with mets admitted for due to sepsis and NSTEMI. Plan: Continuing with present management Pulm: Lung CA with mets * CT chest: Complete lack of aerated pulmonary tissue in the right upper and mid lungs. There is consolidation and possibly some fluid density within the right upper-mid thorax that is likely at least partially atelectatic in etiology given the presence of endobronchial material however neoplasm would certainly be possible. The lack of intravenous contrast is extremely limiting. Bilateral pleural effusions possibly loculated on the right. Atelectasis medial right lower lung. * Chest X-ray: Near complete opacification of the right sara thorax with residual mild aeration at the right lung base. Diffuse increased interstitial lung markings throughout the left lung with some scattered nodular densities throughout the left lung. Moderate to large loculated right pleural effusion. Trace left pleural effusion. * Echo: Moderate to severe pulmonary hypertension Medication/Management: * Ventri Mask * Duoneb 2.5mg INH RQ6 PRN * Pulmicort 0.5mg INH RQ 12H * Morphine 1mg IV Q4 prn and percocet 1 tab PO Q4H prn for pain management * Vanco 750mg IVPB Q12H and Zosyn 3.375gm IVPB Q6 (Loculated pleural effusion) Palliative consult: agreed to DNR/DNI and desires hospice care (08/11/17) CV: Dr. Teresa on board---> help appreciated Elevated troponin ECHO: Moderate valvular aortic stenosis, Moderate TR and stevie-septal hypokinesis. A. fibrillation Hx of hypertension Hypotensive * Lopressor 25mg PO BID (held if patient is hypotensive) * Dopamine 400mg IV Q24H prn * ASA 81mg PO daily ID: Sepsis Dr. Melendez on board--> Help appreciated Lactate on admission: 3.2, Blood culture: No growth Procalcitonin elevated Vanco 750mg IVPB Q12H Zosyn 3.375gm IVPB Q6 NS @ 70mls/hr Heme Anemia possible secondary to Lung CA * H/H: 6.7/22.1-> 9.2/29.6(s/p 1 unit transfusion 08/11/17) * Transfuse 1 unit of PRBC (08/11/17) Neuro: Seizures: * Keppra 500mg PO BID * Thiamine Vitamin B1 Head CT: * Rounded foci of relative increased attenuation measuring 5 millimeter seen within the inferior right frontal lobe on series 4, image 34 with surrounding circumferential edema. This is of uncertain clinical etiology and may represent a metastatic lesion versus sequelae of trauma. Further evaluation with a pre and post-contrast enhanced MRI is recommended for further evaluation. Chronic microvascular ischemic change. Prophylaxis: DVT prophylaxis: Heparin 5,000 units SC Q8H SCDs contraindicated due peripheral edema GI Prophylaxis: Protonix susp 40mg daily <Efra Huber - Last Filed: 08/12/17 17:42> CCU Objective - Vital Signs / Intake & Output Vital Signs (Last 4 hours): Vital Signs Pulse Resp BP Pulse Ox 08/12/17 15:00 104 H 19 107/68 98 08/12/17 14:00 101 H 21 116/73 100 Intake and Output (Last 8hrs): Intake & Output 08/12/17 08/12/17 08/12/17 06:59 14:59 22:59 Intake Total 740 490 70 Output Total 230 Balance 510 490 70 Weight 149 lb 6 oz Intake: Intake, IV Amount 690 490 70 Left PICC 550 490 70 Right Antecubital 140 Oral 50 Output: Urine 230 Urethral (Calix) 230 Other: # Bowel Movements 0 - Medications Active Medications: Active Medications Generic Name Dose Route Start Last Admin Trade Name Freq PRN Reason Stop Dose Admin Albuterol Sulfate 2.5 mg 08/09/17 06:54 08/12/17 07:35 Albuterol 0.083% Inhal Kelsi (2.5 Mg/3 Ml) Ud INH 2.5 mg RQ6 PRN Administration Wheezing Aspirin 81 mg 08/09/17 10:00 08/12/17 09:45 Aspirin Chewable PO 81 mg DAILY EVAN Administration Budesonide 0.5 mg 08/09/17 08:00 08/12/17 07:35 Pulmicort Respules INH 0.5 mg RQ12 EVAN Administration Heparin Sodium (Porcine) 5,000 units 08/09/17 22:00 08/12/17 05:30 Heparin SC 5,000 units Q8 EVAN Administration Hydromorphone HCl 1 mg 08/12/17 13:43 08/12/17 14:04 Dilaudid IVP 1 mg Q2H PRN Administration Pain, severe (8-10) Vancomycin HCl 150 mls @ 150 mls/hr 08/09/17 18:00 08/12/17 05:52 Vancocin 750mg/D5w 150 Ml IVPB 08/14/17 18:01 150 mls/hr Q12H EVAN Administration Piperacillin Sod/Tazobactam Sod 3.375 gm in 50 mls @ 100 mls/hr 08/09/17 12: 00 08/12/17 12:17 Zosyn 3.375 Gm Iv Premix IVPB 100 mls/hr Q6 EVAN Administration Sodium Chloride 1,000 mls @ 70 mls/hr 08/09/17 17:00 08/12/17 02:56 Sodium Chloride 0.9% IV 70 mls/hr .[id number] EVAN Administration Levetiracetam 500 mg 08/09/17 18:00 08/12/17 09:53 Keppra PO 500 mg BID EVAN Administration Metoprolol Tartrate 25 mg 08/09/17 10:00 08/09/17 08:19 Lopressor PO Not Given BID EVAN Oxycodone/Acetaminophen 1 tab 08/10/17 15:45 08/11/17 22:47 Percocet 5/325 Mg Tab PO 08/13/17 15:46 1 tab Q4H PRN Administration Pain, moderate (4-7) Pantoprazole Sodium 40 mg 08/10/17 06:00 08/12/17 05:29 Protonix Susp PO 40 mg 0600 EVAN Administration Thiamine HCl 100 mg 08/11/17 10:00 08/12/17 09:45 Vitamin B1 Tab PO 100 mg DAILY EVAN Administration - Patient Studies Lab Studies: Microbiology Studies 08/11/17 17:16 Urine Culture - Final Urine,Calix No Growth (<1,000 CFU/ML) 08/09/17 07:30 Blood Culture - Preliminary Blood NO GROWTH AFTER 3 DAYS 08/09/17 07:00 Blood Culture - Preliminary Blood NO GROWTH AFTER 3 DAYS 08/10/17 01:30 Blood Culture - Preliminary Blood-Thru Central Line NO GROWTH AFTER 48 HOURS 08/10/17 01:00 Blood Culture - Preliminary Blood-Thru Central Line NO GROWTH AFTER 48 HOURS Lab Studies 08/12/17 08/12/17 08/12/17 Range/Units 06:24 06:24 06:24 WBC 17.6 H (4.8-10.8) K/uL RBC 3.45 L (4.40-5.90) Mil/uL Hgb 9.2 L D (12.0-18.0) g/dL Hct 29.6 L (35.0-51.0) % MCV 85.8 (80.0-94.0) fL MCH 26.6 L (27.0-31.0) pg MCHC 31.0 L (33.0-37.0) g/dL RDW 18.5 H (11.5-14.5) % Plt Count 96 L (130-400) K/uL MPV 8.5 (7.2-11.7) fL Neut % (Auto) 90.8 H (50.0-75.0) % Lymph % (Auto) 2.4 L (20.0-40.0) % Bowie % (Auto) 6.5 (0.0-10.0) % Eos % (Auto) 0.1 (0.0-4.0) % Baso % (Auto) 0.2 (0.0-2.0) % Neut # 16.0 H (1.8-7.0) K/uL Lymph # 0.4 L (1.0-4.3) K/uL Bowie # 1.1 H (0.0-0.8) K/uL Eos # 0.0 (0.0-0.7) K/uL Baso # 0.0 (0.0-0.2) K/uL Neutrophils % (Manual) 93 H (50-75) % Band Neutrophils % 2 (0-2) % Lymphocytes % (Manual) 1 L (20-40) % Monocytes % (Manual) 4 (0-10) % Platelet Estimate Decreased L (NORMAL) Large Platelets Present Hypochromasia (manual) Slight Anisocytosis (manual) Slight Sodium 138 (132-148) mmol/L Potassium 3.8 (3.6-5.2) mmol/L Chloride 103 (98-107) mmol/L Carbon Dioxide 24 (22-30) mmol/L Anion Gap 14 (10-20) BUN 17 (9-20) mg/dL Creatinine 0.7 L (0.8-1.5) MG/DL Est GFR ( Amer) > 60 Est GFR (Non-Af Amer) > 60 Random Glucose 74 L (75-110) mg/dL Calcium 6.9 L (8.6-10.4) mg/dl Phosphorus 3.0 (2.5-4.5) mg/dL Magnesium 1.9 (1.6-2.3) mg/dL Total Bilirubin 0.5 (0.2-1.3) mg/dL AST 20 (17-59) U/L ALT 26 (21-72) U/L Alkaline Phosphatase 94 (38-126) U/L Total Protein 5.2 L (6.3-8.3) g/dL Albumin 2.2 L D (3.5-5.0) g/dL Globulin 3.1 (2.2-3.9) gm/dL Albumin/Globulin Ratio 0.7 L (1.0-2.1) Vancomycin Trough 17.1 H (5.0-10.0) ug/mL Laboratory Results - last 24 hr 08/12/17 08/12/17 08/12/17 06:24 06:24 06:24 WBC 17.6 H RBC 3.45 L Hgb 9.2 L D Hct 29.6 L MCV 85.8 MCH 26.6 L MCHC 31.0 L RDW 18.5 H Plt Count 96 L MPV 8.5 Neut % (Auto) 90.8 H Lymph % (Auto) 2.4 L Bowie % (Auto) 6.5 Eos % (Auto) 0.1 Baso % (Auto) 0.2 Neut # 16.0 H Lymph # 0.4 L Bowie # 1.1 H Eos # 0.0 Baso # 0.0 Neutrophils % (Manual) 93 H Band Neutrophils % 2 Lymphocytes % (Manual) 1 L Monocytes % (Manual) 4 Platelet Estimate Decreased L Large Platelets Present Hypochromasia (manual) Slight Anisocytosis (manual) Slight Sodium 138 Potassium 3.8 Chloride 103 Carbon Dioxide 24 Anion Gap 14 BUN 17 Creatinine 0.7 L Est GFR ( Amer) > 60 Est GFR (Non-Af Amer) > 60 Random Glucose 74 L Calcium 6.9 L Phosphorus 3.0 Magnesium 1.9 Total Bilirubin 0.5 AST 20 ALT 26 Alkaline Phosphatase 94 Total Protein 5.2 L Albumin 2.2 L D Globulin 3.1 Albumin/Globulin Ratio 0.7 L Vancomycin Trough 17.1 H Critical Care Progress Note - Nutrition Nutrition: Nutrition Category Date Time Status Liquid Diet [DIET] Diets 08/09/17 Breakfast Active Attending/Attestation - Attestation I have personally seen and examined this patient.: Yes I have fully participated in the care of the patient.: Yes I have reviewed all pertinent clinical information: Yes Notes (Text): 08/12/17 17:39 Today: Saturday, August 12, 2017 The Patient was seen and examined at the bedside, Medical records reviewed, and management issues were discussed and formulated with the house staff. I have reviewed all the relevant clinical, laboratory, hemodynamic, radiographic data and medications Events reviewed Working on getting the record for [facility] [place] Continue current Meds Continue current antibiotic Aggressive pulmonary toilet, chest PT OOB chair, fall precautions, aspiration precaution GI/DVT PPX Code status: DNR/DNI He will be evaluated by hospice arsh. Pain issues, skin care, head of the bed elevation, glycemic control were addressed. Agree with above treatment plans as transcribed in note Discussed with patients family the diagnosis, treatment plans and alternatives I concur with resident's assessment and plan of care as transcribed in Dr. Schwartz note.
--- NOTE | 2017-08-12 18:23 | CP.PCM.PN ---
Subjective - Date & Time of Evaluation Date of Evaluation: 08/12/17 Time of Evaluation: 18:21 - Subjective Subjective: pt is DNR/DNI awaiting for hospice pulmonary islas poor prognosis continue the supportive care Objective - Vital Signs/Intake and Output Vital Signs (last 24 hours): Temp Pulse Resp BP Pulse Ox 97.4 F L 104 H 19 107/68 98 08/12/17 12:00 08/12/17 15:00 08/12/17 15:00 08/12/17 15:00 08/12/17 15:00 Intake and Output: 08/12/17 08/12/17 06:59 18:59 Intake Total 1120 560 Output Total 330 Balance 790 560 - Medications Medications: Current Medications Albuterol Sulfate (Albuterol 0.083% Inhal Kelsi (2.5 Mg/3 Ml) Ud) 2.5 mg INH RQ6 PRN PRN Reason: Wheezing Last Admin: 08/12/17 07:35 Dose: 2.5 mg Aspirin (Aspirin Chewable) 81 mg PO DAILY [facility] Last Admin: 08/12/17 09:45 Dose: 81 mg Budesonide (Pulmicort Respules) 0.5 mg INH RQ12 EVAN Last Admin: 08/12/17 07:35 Dose: 0.5 mg Heparin Sodium (Porcine) (Heparin) 5,000 units SC Q8 [facility] Last Admin: 08/12/17 15:00 Dose: 5,000 units Hydromorphone HCl (Dilaudid) 1 mg IVP Q2H PRN PRN Reason: Pain, severe (8-10) Last Admin: 08/12/17 17:52 Dose: 1 mg Vancomycin HCl (Vancocin 750mg/D5w 150 Ml) 150 mls @ 150 mls/hr IVPB Q12H [facility] Stop: 08/14/17 18:01 Last Admin: 08/12/17 17:55 Dose: 150 mls/hr Piperacillin Sod/Tazobactam Sod (Zosyn 3.375 Gm Iv Premix) 3.375 gm in 50 mls @ 100 mls/hr IVPB Q6 [facility] Last Admin: 08/12/17 17:57 Dose: 100 mls/hr Sodium Chloride (Sodium Chloride 0.9%) 1,000 mls @ 70 mls/hr IV .[id number] [facility] Last Admin: 08/12/17 17:47 Dose: 70 mls/hr Levetiracetam (Keppra) 500 mg PO BID [facility] Last Admin: 08/12/17 09:53 Dose: 500 mg Metoprolol Tartrate (Lopressor) 25 mg PO BID [facility] Last Admin: 08/09/17 08:19 Dose: Not Given Oxycodone/Acetaminophen (Percocet 5/325 Mg Tab) 1 tab PO Q4H PRN PRN Reason: Pain, moderate (4-7) Stop: 08/13/17 15:46 Last Admin: 08/11/17 22:47 Dose: 1 tab Pantoprazole Sodium (Protonix Susp) 40 mg PO 0600 [facility] Last Admin: 08/12/17 05:29 Dose: 40 mg Thiamine HCl (Vitamin B1 Tab) 100 mg PO DAILY [facility] Last Admin: 08/12/17 09:45 Dose: 100 mg - Labs Labs: 08/12/17 06:24 08/12/17 06:24 PT 23.9 SECONDS (9.7-12.2) H 08/09/17 04:49 INR 2.1 08/09/17 04:49 APTT 63 SECONDS (21-34) H 08/09/17 04:49
--- NOTE | 2017-08-12 19:55 | CP.PCM.PN ---
Subjective - Date & Time of Evaluation Date of Evaluation: 08/12/17 Time of Evaluation: 19:55 - Subjective Subjective: AFEBRILE, STILL COMPLAINS OF SHORTNESS OF BREATH. ON VENTIMASK, REFUSING BIPAP, SEEN BY PALLIATIVE CARE. PATIENT NOW DNR/DNI Objective - Vital Signs/Intake and Output Vital Signs (last 24 hours): Temp Pulse Resp BP Pulse Ox 97.8 F 120 H 22 101/60 96 08/12/17 16:00 08/12/17 19:00 08/12/17 19:00 08/12/17 19:00 08/12/17 19:00 Intake and Output: 08/12/17 08/13/17 18:59 06:59 Intake Total 805 125 Output Total 350 Balance 455 125 - Medications Medications: Current Medications Albuterol Sulfate (Albuterol 0.083% Inhal Kelsi (2.5 Mg/3 Ml) Ud) 2.5 mg INH RQ6 PRN PRN Reason: Wheezing Last Admin: 08/12/17 07:35 Dose: 2.5 mg Aspirin (Aspirin Chewable) 81 mg PO DAILY [facility] Last Admin: 08/12/17 09:45 Dose: 81 mg Budesonide (Pulmicort Respules) 0.5 mg INH RQ12 [facility] Last Admin: 08/12/17 19:40 Dose: Not Given Heparin Sodium (Porcine) (Heparin) 5,000 units SC Q8 [facility] Last Admin: 08/12/17 15:00 Dose: 5,000 units Hydromorphone HCl (Dilaudid) 1 mg IVP Q2H PRN PRN Reason: Pain, severe (8-10) Last Admin: 08/12/17 17:52 Dose: 1 mg Vancomycin HCl (Vancocin 750mg/D5w 150 Ml) 150 mls @ 150 mls/hr IVPB Q12H [facility] Stop: 08/14/17 18:01 Last Admin: 08/12/17 17:55 Dose: 150 mls/hr Piperacillin Sod/Tazobactam Sod (Zosyn 3.375 Gm Iv Premix) 3.375 gm in 50 mls @ 100 mls/hr IVPB Q6 [facility] Last Admin: 08/12/17 17:57 Dose: 100 mls/hr Sodium Chloride (Sodium Chloride 0.9%) 1,000 mls @ 70 mls/hr IV .[id number] [facility] Last Admin: 08/12/17 17:47 Dose: 70 mls/hr Levetiracetam (Keppra) 500 mg PO BID [facility] Last Admin: 08/12/17 18:00 Dose: 500 mg Metoprolol Tartrate (Lopressor) 25 mg PO BID [facility] Last Admin: 08/09/17 08:19 Dose: Not Given Oxycodone/Acetaminophen (Percocet 5/325 Mg Tab) 1 tab PO Q4H PRN PRN Reason: Pain, moderate (4-7) Stop: 08/13/17 15:46 Last Admin: 08/11/17 22:47 Dose: 1 tab Pantoprazole Sodium (Protonix Susp) 40 mg PO 0600 [facility] Last Admin: 08/12/17 05:29 Dose: 40 mg Thiamine HCl (Vitamin B1 Tab) 100 mg PO DAILY [facility] Last Admin: 08/12/17 09:45 Dose: 100 mg - Labs Labs: 08/12/17 06:24 08/12/17 06:24 PT 23.9 SECONDS (9.7-12.2) H 08/09/17 04:49 INR 2.1 08/09/17 04:49 APTT 63 SECONDS (21-34) H 08/09/17 04:49 - Constitutional Appears: No Acute Distress - Head Exam Head Exam: NORMAL INSPECTION - Eye Exam Eye Exam: EOMI, PERRL - ENT Exam ENT Exam: Mucous Membranes Dry, Normal Oropharynx - Neck Exam Neck Exam: Normal Inspection - Respiratory Exam Respiratory Exam: Rhonchi (SCATTERED RHONCHI WITH DIMINISHED BREATH SOUNDS RIGHT SIDE.) - Cardiovascular Exam Cardiovascular Exam: Tachycardia, REGULAR RHYTHM, +S1, +S2 - GI/Abdominal Exam GI & Abdominal Exam: Soft, Normal Bowel Sounds - Extremities Exam Extremities Exam: Normal Capillary Refill. absent: Calf Tenderness, Pedal Edema - Neurological Exam Neurological Exam: Awake, CN II-XII Intact, Oriented x3, Reflexes Normal - Psychiatric Exam Psychiatric exam: Anxious - Skin Skin Exam: Dry, Warm Assessment and Plan (1) Sepsis Assessment & Plan: ALL CULTURES NEGATIVE TO DATE. vANCO TROUGH LEVEL 08/12/17 17.1 OK. rENAL FUNCTIONS OKAY. Continue IV Zosyn 3.375 every 8 hourly. Continue IV vancomycin 750 mg every 12 hourly Status: Acute (2) Leukocytosis Assessment & Plan: IMPROVING. wbc 17.1 STILL HIGH BUT BETTER Status: Acute (3) Pneumonia Status: Acute (4) NSTEMI (non-ST elevated myocardial infarction) Status: Acute (5) UTI (urinary tract infection) Assessment & Plan: URINE CULTURES 08/10/17 NEGATIVE GROWTH TO DATE. Status: Acute (6) Metastatic primary lung cancer Assessment & Plan: PATIENT dnr/dni. pATIENT BEING EVALUATED FOR HOSPICE CARE. Status: Acute (7) Syncope and collapse Status: Acute
[2017-08-12] MEDS ORDERED: HYDROmorphone 1 mg/ml ISec IVP STA (19:57)
[2017-08-12] MEDS ORDERED: Digoxin 500 mcg/2ml (0.5 mg/2ml) Inj IVP ONE (19:57)
[2017-08-12 20:38] VITALS: PULSE 133
[2017-08-13] MEDS: Piperacill/Tazo 3.375gm in Dex 3.375 GM/50 ML BAG IVPB SCH ×4 (00:02→17:34)
[2017-08-13] MEDS: Vancomycin 750mg/D5W 150 ml 150 ML IVPB SCH ×2 (05:46→17:28)
[2017-08-13] MEDS: Pantoprazole 40 mg Susp UD PO SCH (05:55)
[2017-08-13] MEDS: Budesonide 0.5 mg/2 ml Inhal Susp UD INH SCH ×2 (07:45→19:45)
[2017-08-13] MEDS: Albuterol 0.083% Inhal Sol (2.5 mg/3 mL) UD INH PRN ×2 (07:45→19:45)
--- NOTE | 2017-08-13 09:25 | EEG ---
DATE: 08/11/2017 This is a 16-channel electroencephalogram of awake and drowsy adult. During the study, photic stimulation was performed. Hyperventilation was not performed. The resting electroencephalogram consists of diffuse 20-30 microvolt theta activities noted superimposed with movement artifact contaminated with the background rhythm. The slow activity continuously noted from the beginning. The photic stimulation did not evoke driving response noted after 2 to 20 Hz. IMPRESSION: This is an abnormal electroencephalogram because of diffuse slowing throughout the record suggestive of bilateral cerebral dysfunction. This is probably secondary to metabolic, vascular, degenerative process. Please correlate the findings with the neurological and radiological studies. Joey Ricci MD
--- NOTE | 2017-08-13 09:48 | PN ---
DATE: 08/13/2017 NEUROLOGIC PROBLEM: Metastatic brain cancer with possible seizures. PHYSICAL EXAMINATION: VITAL SIGNS: Blood pressure 97/68, mean arterial pressure of 77, respiratory rate 16, temperature afebrile, pulse rate 116. The patient seems to be lethargic on a Ventimask. He moves all four extremities. His speech is intact. Examination unchanged. The patient is a DNR and DNI. Depending on the family standpoint, workup will be requested. They requested MRI is not done. I was told it was on hold with no reason. The patient should have been having radiation consult for whole brain radiation unless the family refused. Continue requesting management. Continue the supportive care per now. Joey Ricci MD
[2017-08-13] MEDS: levETIRAcetam 100 mg/ml (5ml) Oral Syringe PO SCH (10:14)
--- NOTE | 2017-08-13 11:37 | CP.PCM.PN ---
Subjective - Date & Time of Evaluation Date of Evaluation: 08/13/17 Time of Evaluation: 11:30 - Subjective Subjective: Patient was seen and examined at bedside. Patient appears to be agitated at times. Placed on BiPAP because of hypoxia. Objective - Vital Signs/Intake and Output Vital Signs (last 24 hours): Temp Pulse Resp BP Pulse Ox 97.6 F 132 H 15 111/57 L 100 08/13/17 04:00 08/13/17 09:22 08/13/17 05:24 08/13/17 09:22 08/13/17 09:22 Intake and Output: 08/13/17 08/13/17 06:59 18:59 Intake Total 985 210 Output Total 300 Balance 685 210 - Medications Medications: Current Medications Albuterol Sulfate (Albuterol 0.083% Inhal Kelsi (2.5 Mg/3 Ml) Ud) 2.5 mg INH RQ6 PRN PRN Reason: Wheezing Last Admin: 08/13/17 07:45 Dose: 2.5 mg Aspirin (Aspirin Chewable) 81 mg PO DAILY [facility] Last Admin: 08/13/17 10:14 Dose: 81 mg Budesonide (Pulmicort Respules) 0.5 mg INH RQ12 [facility] Last Admin: 08/13/17 07:45 Dose: 0.5 mg Heparin Sodium (Porcine) (Heparin) 5,000 units SC Q8 [facility] Last Admin: 08/13/17 05:54 Dose: 5,000 units Hydromorphone HCl (Dilaudid) 1 mg IVP Q2H PRN PRN Reason: Pain, severe (8-10) Last Admin: 08/13/17 03:15 Dose: 1 mg Vancomycin HCl (Vancocin 750mg/D5w 150 Ml) 150 mls @ 150 mls/hr IVPB Q12H [facility] Stop: 08/14/17 18:01 Last Admin: 08/13/17 05:46 Dose: 150 mls/hr Piperacillin Sod/Tazobactam Sod (Zosyn 3.375 Gm Iv Premix) 3.375 gm in 50 mls @ 100 mls/hr IVPB Q6 [facility] Last Admin: 08/13/17 05:30 Dose: 100 mls/hr Sodium Chloride (Sodium Chloride 0.9%) 1,000 mls @ 70 mls/hr IV .[id number] [facility] Last Admin: 08/12/17 17:47 Dose: 70 mls/hr Levetiracetam (Keppra) 500 mg PO BID [facility] Last Admin: 08/13/17 10:14 Dose: 500 mg Metoprolol Tartrate (Lopressor) 25 mg PO BID [facility] Last Admin: 08/09/17 08:19 Dose: Not Given Oxycodone/Acetaminophen (Percocet 5/325 Mg Tab) 1 tab PO Q4H PRN PRN Reason: Pain, moderate (4-7) Stop: 08/13/17 15:46 Last Admin: 08/11/17 22:47 Dose: 1 tab Pantoprazole Sodium (Protonix Susp) 40 mg PO 0600 [facility] Last Admin: 08/13/17 05:55 Dose: 40 mg Thiamine HCl (Vitamin B1 Tab) 100 mg PO DAILY [facility] Last Admin: 08/13/17 10:14 Dose: 100 mg - Labs Labs: 08/12/17 06:24 08/12/17 06:24 PT 23.9 SECONDS (9.7-12.2) H 08/09/17 04:49 INR 2.1 08/09/17 04:49 APTT 63 SECONDS (21-34) H 08/09/17 04:49 - Head Exam Head Exam: ATRAUMATIC, NORMOCEPHALIC - Eye Exam Eye Exam: Normal appearance - ENT Exam ENT Exam: Mucous Membranes Moist - Respiratory Exam Respiratory Exam: Clear to Ausculation Bilateral - Cardiovascular Exam Cardiovascular Exam: REGULAR RHYTHM, +S1, +S2 - GI/Abdominal Exam GI & Abdominal Exam: Soft. absent: Tenderness - Extremities Exam Extremities Exam: Pedal Edema - Neurological Exam Neurological Exam: Alert, Awake Assessment and Plan (1) Metastatic primary lung cancer Status: Acute (2) Atrial fibrillation Status: Acute (3) NSTEMI (non-ST elevated myocardial infarction) Status: Acute (4) Pneumonia Status: Acute (5) Sepsis Status: Acute (6) UTI (urinary tract infection) Status: Acute - Assessment and Plan (Free Text) Plan: Patient is agitated. Refusing BiPAP. However patient to commence to place BiPAP because of persistent hypoxia. DNR and DNI status noted. Patient is on antibiotics because of sepsis/UTI/pneumonia. Hospice evaluation is in progress. Continue pain management with Dilaudid as needed. No aggressive measures as per the patient and the family. Poor prognosis.
--- NOTE | 2017-08-13 11:55 | CP.PCM.PN ---
<Rizwan Jarrett - Last Filed: 08/13/17 11:52> Subjective - Date & Time of Evaluation Date of Evaluation: 08/13/17 Time of Evaluation: 09:01 - Subjective Subjective: Cardiology Progress Note-Dr. Teresa's service Pt seen and examined in no acute distress. Patient on BiPAP. Patient expressed that he felt better yesterday in comparison to today. An ROS not obtained at this time due to patient's critical status. Objective - Vital Signs/Intake and Output Vital Signs (last 24 hours): Temp Pulse Resp BP Pulse Ox 97.6 F 132 H 15 111/57 L 100 08/13/17 04:00 08/13/17 11:36 08/13/17 05:24 08/13/17 09:22 08/13/17 09:22 Intake and Output: 08/13/17 08/13/17 06:59 18:59 Intake Total 985 210 Output Total 300 Balance 685 210 - Medications Medications: Current Medications Albuterol Sulfate (Albuterol 0.083% Inhal Kelsi (2.5 Mg/3 Ml) Ud) 2.5 mg INH RQ6 PRN PRN Reason: Wheezing Last Admin: 08/13/17 07:45 Dose: 2.5 mg Aspirin (Aspirin Chewable) 81 mg PO DAILY [facility] Last Admin: 08/13/17 10:14 Dose: 81 mg Budesonide (Pulmicort Respules) 0.5 mg INH RQ12 [facility] Last Admin: 08/13/17 07:45 Dose: 0.5 mg Heparin Sodium (Porcine) (Heparin) 5,000 units SC Q8 [facility] Last Admin: 08/13/17 05:54 Dose: 5,000 units Hydromorphone HCl (Dilaudid) 1 mg IVP Q2H PRN PRN Reason: Pain, severe (8-10) Last Admin: 08/13/17 03:15 Dose: 1 mg Vancomycin HCl (Vancocin 750mg/D5w 150 Ml) 150 mls @ 150 mls/hr IVPB Q12H [facility] Stop: 08/14/17 18:01 Last Admin: 08/13/17 05:46 Dose: 150 mls/hr Piperacillin Sod/Tazobactam Sod (Zosyn 3.375 Gm Iv Premix) 3.375 gm in 50 mls @ 100 mls/hr IVPB Q6 [facility] Last Admin: 08/13/17 05:30 Dose: 100 mls/hr Sodium Chloride (Sodium Chloride 0.9%) 1,000 mls @ 70 mls/hr IV .[id number] [facility] Last Admin: 08/12/17 17:47 Dose: 70 mls/hr Levetiracetam (Keppra) 500 mg PO BID [facility] Last Admin: 08/13/17 10:14 Dose: 500 mg Metoprolol Tartrate (Lopressor) 25 mg PO BID [facility] Last Admin: 08/09/17 08:19 Dose: Not Given Oxycodone/Acetaminophen (Percocet 5/325 Mg Tab) 1 tab PO Q4H PRN PRN Reason: Pain, moderate (4-7) Stop: 08/13/17 15:46 Last Admin: 08/11/17 22:47 Dose: 1 tab Pantoprazole Sodium (Protonix Susp) 40 mg PO 0600 [facility] Last Admin: 08/13/17 05:55 Dose: 40 mg Thiamine HCl (Vitamin B1 Tab) 100 mg PO DAILY [facility] Last Admin: 08/13/17 10:14 Dose: 100 mg - Labs Labs: 08/12/17 06:24 08/12/17 06:24 PT 23.9 SECONDS (9.7-12.2) H 08/09/17 04:49 INR 2.1 08/09/17 04:49 APTT 63 SECONDS (21-34) H 08/09/17 04:49 - Constitutional Appears: Non-toxic, No Acute Distress - Head Exam Head Exam: ATRAUMATIC, NORMAL INSPECTION, NORMOCEPHALIC - Eye Exam Eye Exam: EOMI, Normal appearance - Neck Exam Neck Exam: Full ROM Additional comments: JVD noted - Respiratory Exam Respiratory Exam: NORMAL BREATHING PATTERN - Cardiovascular Exam Cardiovascular Exam: +S1, +S2, Murmur - GI/Abdominal Exam GI & Abdominal Exam: Soft, Normal Bowel Sounds - Extremities Exam Extremities Exam: Full ROM, Pedal Edema (pitting edema (2+) up to the thighs), Tenderness (mildly) - Neurological Exam Neurological Exam: Alert, Awake, Oriented x3 - Psychiatric Exam Psychiatric exam: Flat Affect - Skin Skin Exam: Dry, Warm Assessment and Plan - Assessment and Plan (Free Text) Assessment: NSTEMI Not a candidate for anticoagulant therapy due to anemia as well as increased risk of bleed with CT findings noted 08/09 Atrial Fibrillation Pt not a candidate due to increased risk of intracranial hemorrhage ASA daily Pneumonia 08/11 CXR: Dense opacification of right upper lobe noted with questionable bilateral pleural effusions On Vanc and Zosyn Negative blood and urine cultures Management per Critical care and ID teams Metastatic Lung Cancer Considerations for Palliative care. F/U recommendations Poor prognosis Systolic CHF (EF 25-30%) ECHO: Moderate valvular aortic stenosis, Moderate TR and stevie-septal hypokinesis. Hypotension Pressors for BP support IV fluids as tolerated- Monitor for signs of fluid overload Anemia Hgb 6.7 To be transfused today Management per critical care team Prophylaxis ASA daily Anticoagulation contraindicated due to anemia and increased risk of intracranial bleeding Protonix 40 mg PO Discussed with attending. Management and planning per Dr. Teresa <Espinoza Teresa - Last Filed: 08/14/17 22:44> Objective - Vital Signs/Intake and Output Vital Signs (last 24 hours): Temp Pulse Resp BP Pulse Ox 97.3 F L 109 H 29 H 97/68 L 99 08/14/17 16:00 08/14/17 16:00 08/14/17 16:00 08/14/17 16:00 08/14/17 16:00 - Labs Labs: 08/12/17 06:24 08/12/17 06:24 PT 23.9 SECONDS (9.7-12.2) H 08/09/17 04:49 INR 2.1 08/09/17 04:49 APTT 63 SECONDS (21-34) H 08/09/17 04:49 Assessment and Plan - Assessment and Plan (Free Text) Assessment: Patient seen and evaluated with the medical doctor md/medical director Plan of care as documented
--- NOTE | 2017-08-13 12:27 | CP.PCM.PN ---
Subjective - Date & Time of Evaluation Date of Evaluation: 08/11/17 Time of Evaluation: 19:45 - Subjective Subjective: Has shortness of breath Seen by palliative care Objective - Vital Signs/Intake and Output Vital Signs (last 24 hours): Temp Pulse Resp BP Pulse Ox 97.6 F 132 H 15 111/57 L 100 08/13/17 04:00 08/13/17 11:36 08/13/17 05:24 08/13/17 09:22 08/13/17 09:22 Intake and Output: 08/13/17 08/13/17 06:59 18:59 Intake Total 985 210 Output Total 300 Balance 685 210 - Medications Medications: Current Medications Albuterol Sulfate (Albuterol 0.083% Inhal Kelsi (2.5 Mg/3 Ml) Ud) 2.5 mg INH RQ6 PRN PRN Reason: Wheezing Last Admin: 08/13/17 07:45 Dose: 2.5 mg Aspirin (Aspirin Chewable) 81 mg PO DAILY [facility] Last Admin: 08/13/17 10:14 Dose: 81 mg Budesonide (Pulmicort Respules) 0.5 mg INH RQ12 [facility] Last Admin: 08/13/17 07:45 Dose: 0.5 mg Heparin Sodium (Porcine) (Heparin) 5,000 units SC Q8 [facility] Last Admin: 08/13/17 05:54 Dose: 5,000 units Hydromorphone HCl (Dilaudid) 1 mg IVP Q2H PRN PRN Reason: Pain, severe (8-10) Last Admin: 08/13/17 03:15 Dose: 1 mg Vancomycin HCl (Vancocin 750mg/D5w 150 Ml) 150 mls @ 150 mls/hr IVPB Q12H [facility] Stop: 08/14/17 18:01 Last Admin: 08/13/17 05:46 Dose: 150 mls/hr Piperacillin Sod/Tazobactam Sod (Zosyn 3.375 Gm Iv Premix) 3.375 gm in 50 mls @ 100 mls/hr IVPB Q6 [facility] Last Admin: 08/13/17 05:30 Dose: 100 mls/hr Sodium Chloride (Sodium Chloride 0.9%) 1,000 mls @ 70 mls/hr IV .[id number] [facility] Last Admin: 08/12/17 17:47 Dose: 70 mls/hr Levetiracetam (Keppra) 500 mg PO BID [facility] Last Admin: 08/13/17 10:14 Dose: 500 mg Metoprolol Tartrate (Lopressor) 25 mg PO BID [facility] Last Admin: 08/09/17 08:19 Dose: Not Given Oxycodone/Acetaminophen (Percocet 5/325 Mg Tab) 1 tab PO Q4H PRN PRN Reason: Pain, moderate (4-7) Stop: 08/13/17 15:46 Last Admin: 08/11/17 22:47 Dose: 1 tab Pantoprazole Sodium (Protonix Susp) 40 mg PO 0600 [facility] Last Admin: 08/13/17 05:55 Dose: 40 mg Thiamine HCl (Vitamin B1 Tab) 100 mg PO DAILY [facility] Last Admin: 08/13/17 10:14 Dose: 100 mg - Labs Labs: 08/12/17 06:24 08/12/17 06:24 PT 23.9 SECONDS (9.7-12.2) H 08/09/17 04:49 INR 2.1 08/09/17 04:49 APTT 63 SECONDS (21-34) H 08/09/17 04:49 - Head Exam Head Exam: ATRAUMATIC - Eye Exam Eye Exam: Normal appearance - ENT Exam ENT Exam: Mucous Membranes Dry - Respiratory Exam Respiratory Exam: Decreased Breath Sounds - Cardiovascular Exam Cardiovascular Exam: +S1, +S2 - GI/Abdominal Exam GI & Abdominal Exam: Normal Bowel Sounds Assessment and Plan (1) Metastatic primary lung cancer Assessment & Plan: on immunotherapy supportive care DNR/DNI hospice evaluation Status: Acute (2) Leukocytosis Assessment & Plan: on antibiotics Status: Acute (3) Anemia Assessment & Plan: chronic disease Status: Acute (4) Thrombocytopenia Assessment & Plan: mild Status: Acute (5) Coagulopathy Assessment & Plan: nutritional rule out DIC Status: Acute
--- NOTE | 2017-08-13 12:28 | CP.PCM.PN ---
Subjective - Date & Time of Evaluation Date of Evaluation: 08/12/17 Time of Evaluation: 15:15 - Subjective Subjective: Feeling better, family at bedside Objective - Vital Signs/Intake and Output Vital Signs (last 24 hours): Temp Pulse Resp BP Pulse Ox 97.6 F 132 H 15 111/57 L 100 08/13/17 04:00 08/13/17 11:36 08/13/17 05:24 08/13/17 09:22 08/13/17 09:22 Intake and Output: 08/13/17 08/13/17 06:59 18:59 Intake Total 985 210 Output Total 300 Balance 685 210 - Medications Medications: Current Medications Albuterol Sulfate (Albuterol 0.083% Inhal Kelsi (2.5 Mg/3 Ml) Ud) 2.5 mg INH RQ6 PRN PRN Reason: Wheezing Last Admin: 08/13/17 07:45 Dose: 2.5 mg Aspirin (Aspirin Chewable) 81 mg PO DAILY [facility] Last Admin: 08/13/17 10:14 Dose: 81 mg Budesonide (Pulmicort Respules) 0.5 mg INH RQ12 [facility] Last Admin: 08/13/17 07:45 Dose: 0.5 mg Heparin Sodium (Porcine) (Heparin) 5,000 units SC Q8 [facility] Last Admin: 08/13/17 05:54 Dose: 5,000 units Hydromorphone HCl (Dilaudid) 1 mg IVP Q2H PRN PRN Reason: Pain, severe (8-10) Last Admin: 08/13/17 03:15 Dose: 1 mg Vancomycin HCl (Vancocin 750mg/D5w 150 Ml) 150 mls @ 150 mls/hr IVPB Q12H [facility] Stop: 08/14/17 18:01 Last Admin: 08/13/17 05:46 Dose: 150 mls/hr Piperacillin Sod/Tazobactam Sod (Zosyn 3.375 Gm Iv Premix) 3.375 gm in 50 mls @ 100 mls/hr IVPB Q6 [facility] Last Admin: 08/13/17 05:30 Dose: 100 mls/hr Sodium Chloride (Sodium Chloride 0.9%) 1,000 mls @ 70 mls/hr IV .[id number] [facility] Last Admin: 08/12/17 17:47 Dose: 70 mls/hr Levetiracetam (Keppra) 500 mg PO BID [facility] Last Admin: 08/13/17 10:14 Dose: 500 mg Metoprolol Tartrate (Lopressor) 25 mg PO BID [facility] Last Admin: 08/09/17 08:19 Dose: Not Given Oxycodone/Acetaminophen (Percocet 5/325 Mg Tab) 1 tab PO Q4H PRN PRN Reason: Pain, moderate (4-7) Stop: 08/13/17 15:46 Last Admin: 08/11/17 22:47 Dose: 1 tab Pantoprazole Sodium (Protonix Susp) 40 mg PO 0600 [facility] Last Admin: 08/13/17 05:55 Dose: 40 mg Thiamine HCl (Vitamin B1 Tab) 100 mg PO DAILY [facility] Last Admin: 08/13/17 10:14 Dose: 100 mg - Labs Labs: 08/12/17 06:24 08/12/17 06:24 PT 23.9 SECONDS (9.7-12.2) H 08/09/17 04:49 INR 2.1 08/09/17 04:49 APTT 63 SECONDS (21-34) H 08/09/17 04:49 - Head Exam Head Exam: ATRAUMATIC - Eye Exam Eye Exam: Normal appearance - ENT Exam ENT Exam: Mucous Membranes Dry - Respiratory Exam Respiratory Exam: Decreased Breath Sounds - Cardiovascular Exam Cardiovascular Exam: +S1, +S2 - GI/Abdominal Exam GI & Abdominal Exam: Normal Bowel Sounds - Extremities Exam Extremities Exam: Normal Inspection Assessment and Plan (1) Metastatic primary lung cancer Assessment & Plan: stage IV supportive care DNR/DNI hospice evaluation Status: Acute (2) Leukocytosis Assessment & Plan: on antibiotics Status: Acute (3) Anemia Assessment & Plan: chronic disease Status: Acute (4) Thrombocytopenia Status: Acute (5) Coagulopathy Status: Acute
[2017-08-13] MEDS: Sodium Chloride 0.9% 1,000 ML IV SCH ×2 (12:46→22:43)
--- NOTE | 2017-08-13 16:49 | CP.CCUPN ---
<Fam Schwartz E - Last Filed: 08/13/17 17:32> CCU Subjective - Physician Review Subjective (Free Text): Patient was seen and examined at bedside. Patient still reports difficulty with breathing and diffuse pain. Patient denies nausea, vomiting, fever, chills, headache and lightheadedness. Patient is alternating between ventri mask and bipap. CCU Objective - Vital Signs / Intake & Output Vital Signs (Last 4 hours): Vital Signs Pulse 08/13/17 16:09 88 08/13/17 13:55 127 H Intake and Output (Last 8hrs): Intake & Output 08/13/17 08/13/17 08/13/17 06:59 14:59 22:59 Intake Total 600 210 Output Total 300 Balance 300 210 Intake: Intake, IV Amount 600 210 Left PICC 600 210 Output: Urine 300 Urethral (Calix) 300 Other: # Bowel Movements 1 0 - Physical Exam Head: Positive for: Atraumatic, Normocephalic Extroacular Muscles: Positive for: EOMI Mouth: Positive for: Moist Mucous Membranes Respiratory/Chest: Positive for: Wheezes, Decreased Breath Sounds Cardiovascular: Positive for: Regular Rate and Rhythm, Normal S1, S2 Abdomen: Positive for: Normal Bowel Sounds. Negative for: Tenderness, Distention Upper Extremity: Positive for: Edema (improving ) Lower Extremity: Positive for: Edema Neurological: Positive for: GCS=15, Speech Normal Skin: Positive for: Warm Psychiatric: Positive for: Alert, Oriented x 3 - Medications Active Medications: Active Medications Generic Name Dose Route Start Last Admin Trade Name Freq PRN Reason Stop Dose Admin Albuterol Sulfate 2.5 mg 08/09/17 06:54 08/13/17 07:45 Albuterol 0.083% Inhal Kelsi (2.5 Mg/3 Ml) Ud INH 2.5 mg RQ6 PRN Administration Wheezing Aspirin 81 mg 08/09/17 10:00 08/13/17 10:14 Aspirin Chewable PO 81 mg DAILY [facility] Administration Budesonide 0.5 mg 08/09/17 08:00 08/13/17 07:45 Pulmicort Respules INH 0.5 mg RQ12 [facility] Administration Heparin Sodium (Porcine) 5,000 units 08/09/17 22:00 08/13/17 05:54 Heparin SC 5,000 units Q8 [facility] Administration Hydromorphone HCl 1 mg 08/12/17 13:43 08/13/17 12:35 Dilaudid IVP 1 mg Q2H PRN Administration Pain, severe (8-10) Vancomycin HCl 150 mls @ 150 mls/hr 08/09/17 18:00 08/13/17 05:46 Vancocin 750mg/D5w 150 Ml IVPB 08/14/17 18:01 150 mls/hr Q12H [facility] Administration Piperacillin Sod/Tazobactam Sod 3.375 gm in 50 mls @ 100 mls/hr 08/09/17 12: 00 08/13/17 05:30 Zosyn 3.375 Gm Iv Premix IVPB 100 mls/hr Q6 [facility] Administration Sodium Chloride 1,000 mls @ 70 mls/hr 08/09/17 17:00 08/13/17 12:46 Sodium Chloride 0.9% IV 70 mls/hr .[id number] [facility] Administration Levetiracetam 500 mg 08/09/17 18:00 08/13/17 10:14 Keppra PO 500 mg BID [facility] Administration Metoprolol Tartrate 25 mg 08/09/17 10:00 08/09/17 08:19 Lopressor PO Not Given BID [facility] Pantoprazole Sodium 40 mg 08/10/17 06:00 08/13/17 05:55 Protonix Susp PO 40 mg 0600 [facility] Administration Thiamine HCl 100 mg 08/11/17 10:00 08/13/17 10:14 Vitamin B1 Tab PO 100 mg DAILY [facility] Administration - Patient Studies Lab Studies: Microbiology Studies 08/09/17 07:30 Blood Culture - Preliminary Blood NO GROWTH AFTER 4 DAYS 08/09/17 07:00 Blood Culture - Preliminary Blood NO GROWTH AFTER 4 DAYS 08/10/17 01:30 Blood Culture - Preliminary Blood-Thru Central Line NO GROWTH AFTER 3 DAYS 08/10/17 01:00 Blood Culture - Preliminary Blood-Thru Central Line NO GROWTH AFTER 3 DAYS Fingerstick Blood Sugar Results: 191 Critical Care Progress Note - Nutrition Nutrition: Nutrition Category Date Time Status Liquid Diet [DIET] Diets 08/09/17 Breakfast Active Assessment/Plan - Assessment and Plan (Free Text) Assessment: 67 y/o male with past medical history of HTN, A.fib, Lung CA with mets admitted for due to sepsis and NSTEMI. Plan: Continuing with present management Pulm: Lung CA with mets * CT chest: Complete lack of aerated pulmonary tissue in the right upper and mid lungs. There is consolidation and possibly some fluid density within the right upper-mid thorax that is likely at least partially atelectatic in etiology given the presence of endobronchial material however neoplasm would certainly be possible. The lack of intravenous contrast is extremely limiting. Bilateral pleural effusions possibly loculated on the right. Atelectasis medial right lower lung. * Chest X-ray: Near complete opacification of the right sara thorax with residual mild aeration at the right lung base. Diffuse increased interstitial lung markings throughout the left lung with some scattered nodular densities throughout the left lung. Moderate to large loculated right pleural effusion. Trace left pleural effusion. * Echo: Moderate to severe pulmonary hypertension Medication/Management: * Alternating between Ventri Mask and BiPAP * Duoneb 2.5mg INH RQ6 PRN * Pulmicort 0.5mg INH RQ 12H * Morphine 1mg IV Q4 prn and percocet 1 tab PO Q4H prn for pain management * Vanco 750mg IVPB Q12H and Zosyn 3.375gm IVPB Q6 (Loculated pleural effusion) Palliative consult: agreed to DNR/DNI and desires hospice care (08/11/17) Hospice evaluation CV: Dr. Teresa on board---> help appreciated Elevated troponin ECHO: Moderate valvular aortic stenosis, Moderate TR and stevie-septal hypokinesis. A. fibrillation Hx of hypertension Hypotensive * Lopressor 25mg PO BID (held if patient is hypotensive) * Dopamine 400mg IV Q24H prn * ASA 81mg PO daily ID: Sepsis Dr. Melendez on board--> Help appreciated Lactate on admission: 3.2, Blood culture: No growth Procalcitonin elevated Vanco 750mg IVPB Q12H Zosyn 3.375gm IVPB Q6 NS @ 70mls/hr Heme Anemia possible secondary to Lung CA * H/H: 6.7/22.1-> 9.2/29.6(s/p 1 unit transfusion 08/11/17) * Transfuse 1 unit of PRBC (08/11/17) Neuro: Seizures: * Keppra 500mg PO BID * Thiamine Vitamin B1 Head CT: * Rounded foci of relative increased attenuation measuring 5 millimeter seen within the inferior right frontal lobe on series 4, image 34 with surrounding circumferential edema. This is of uncertain clinical etiology and may represent a metastatic lesion versus sequelae of trauma. Further evaluation with a pre and post-contrast enhanced MRI is recommended for further evaluation. Chronic microvascular ischemic change. Prophylaxis: DVT prophylaxis: Heparin 5,000 units SC Q8H SCDs contraindicated due peripheral edema GI Prophylaxis: Protonix susp 40mg daily <Alo Little P - Last Filed: 08/13/17 20:00> CCU Objective - Vital Signs / Intake & Output Vital Signs (Last 4 hours): Vital Signs Temp Pulse Resp BP Pulse Ox 08/13/17 19:49 136 H 08/13/17 16:27 97.2 F L 79 21 97/52 L 95 08/13/17 16:09 88 Intake and Output (Last 8hrs): Intake & Output 08/13/17 08/13/17 08/13/17 06:59 14:59 22:59 Intake Total 600 210 Output Total 300 Balance 300 210 Intake: Intake, IV Amount 600 210 Left PICC 600 210 Output: Urine 300 Urethral (Calix) 300 Other: # Bowel Movements 1 0 - Medications Active Medications: Active Medications Generic Name Dose Route Start Last Admin Trade Name Freq PRN Reason Stop Dose Admin Albuterol Sulfate 2.5 mg 08/09/17 06:54 08/13/17 19:45 Albuterol 0.083% Inhal Kelsi (2.5 Mg/3 Ml) Ud INH 2.5 mg RQ6 PRN Administration Wheezing Aspirin 81 mg 08/09/17 10:00 08/13/17 10:14 Aspirin Chewable PO 81 mg DAILY [facility] Administration Budesonide 0.5 mg 08/09/17 08:00 08/13/17 19:45 Pulmicort Respules INH 0.5 mg RQ12 [facility] Administration Heparin Sodium (Porcine) 5,000 units 08/09/17 22:00 08/13/17 17:28 Heparin SC Not Given Q8 [facility] Hydromorphone HCl 1 mg 08/12/17 13:43 08/13/17 12:35 Dilaudid IVP 1 mg Q2H PRN Administration Pain, severe (8-10) Vancomycin HCl 150 mls @ 150 mls/hr 08/09/17 18:00 08/13/17 17:28 Vancocin 750mg/D5w 150 Ml IVPB 08/14/17 18:01 Not Given Q12H [facility] Piperacillin Sod/Tazobactam Sod 3.375 gm in 50 mls @ 100 mls/hr 08/09/17 12: 00 08/13/17 17:34 Zosyn 3.375 Gm Iv Premix IVPB Not Given Q6 [facility] Sodium Chloride 1,000 mls @ 70 mls/hr 08/09/17 17:00 08/13/17 12:46 Sodium Chloride 0.9% IV 70 mls/hr .[id number] [facility] Administration Levetiracetam 500 mg 08/09/17 18:00 08/13/17 10:14 Keppra PO 500 mg BID [facility] Administration Metoprolol Tartrate 25 mg 08/09/17 10:00 08/09/17 08:19 Lopressor PO Not Given BID [facility] Pantoprazole Sodium 40 mg 08/10/17 06:00 08/13/17 05:55 Protonix Susp PO 40 mg 0600 [facility] Administration Thiamine HCl 100 mg 08/11/17 10:00 08/13/17 10:14 Vitamin B1 Tab PO 100 mg DAILY [facility] Administration - Patient Studies Lab Studies: Microbiology Studies 08/09/17 07:30 Blood Culture - Preliminary Blood NO GROWTH AFTER 4 DAYS 08/09/17 07:00 Blood Culture - Preliminary Blood NO GROWTH AFTER 4 DAYS 08/10/17 01:30 Blood Culture - Preliminary Blood-Thru Central Line NO GROWTH AFTER 3 DAYS 08/10/17 01:00 Blood Culture - Preliminary Blood-Thru Central Line NO GROWTH AFTER 3 DAYS Critical Care Progress Note - Nutrition Nutrition: Nutrition Category Date Time Status Liquid Diet [DIET] Diets 08/09/17 Breakfast Active Attending/Attestation - Attestation I have personally seen and examined this patient.: Yes I have fully participated in the care of the patient.: Yes I have reviewed all pertinent clinical information: Yes Notes (Text): 08/13/17 19:59 Patient is DNR/DNI, hospice care, 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
--- NOTE | 2017-08-13 18:59 | CP.PCM.PN ---
Subjective - Date & Time of Evaluation Date of Evaluation: 08/13/17 Time of Evaluation: 18:59 - Subjective Subjective: AFEBRILE, DEPRESSED ON BIPAP. C/O SHORTNESS OF BREATH AT TIMES. LABS; VANCO TROUGH 17.1 OKAY RENAL FUNCTION STABLE. ON iv ANTIBIOTICS,IV zOSYN, IV VANCOMYCIN. Objective - Vital Signs/Intake and Output Vital Signs (last 24 hours): Temp Pulse Resp BP Pulse Ox 97.2 F L 79 21 97/52 L 95 08/13/17 16:27 08/13/17 16:27 08/13/17 16:27 08/13/17 16:27 08/13/17 16:27 Intake and Output: 08/13/17 08/13/17 06:59 18:59 Intake Total 985 210 Output Total 300 Balance 685 210 - Medications Medications: Current Medications Albuterol Sulfate (Albuterol 0.083% Inhal Kelsi (2.5 Mg/3 Ml) Ud) 2.5 mg INH RQ6 PRN PRN Reason: Wheezing Last Admin: 08/13/17 07:45 Dose: 2.5 mg Aspirin (Aspirin Chewable) 81 mg PO DAILY [facility] Last Admin: 08/13/17 10:14 Dose: 81 mg Budesonide (Pulmicort Respules) 0.5 mg INH RQ12 EVAN Last Admin: 08/13/17 07:45 Dose: 0.5 mg Heparin Sodium (Porcine) (Heparin) 5,000 units SC Q8 EVAN Last Admin: 08/13/17 17:28 Dose: Not Given Hydromorphone HCl (Dilaudid) 1 mg IVP Q2H PRN PRN Reason: Pain, severe (8-10) Last Admin: 08/13/17 12:35 Dose: 1 mg Vancomycin HCl (Vancocin 750mg/D5w 150 Ml) 150 mls @ 150 mls/hr IVPB Q12H EVAN Stop: 08/14/17 18:01 Last Admin: 08/13/17 17:28 Dose: Not Given Piperacillin Sod/Tazobactam Sod (Zosyn 3.375 Gm Iv Premix) 3.375 gm in 50 mls @ 100 mls/hr IVPB Q6 EVAN Last Admin: 08/13/17 17:34 Dose: Not Given Sodium Chloride (Sodium Chloride 0.9%) 1,000 mls @ 70 mls/hr IV .[id number] [facility] Last Admin: 08/13/17 12:46 Dose: 70 mls/hr Levetiracetam (Keppra) 500 mg PO BID [facility] Last Admin: 08/13/17 10:14 Dose: 500 mg Metoprolol Tartrate (Lopressor) 25 mg PO BID [facility] Last Admin: 08/09/17 08:19 Dose: Not Given Pantoprazole Sodium (Protonix Susp) 40 mg PO 0600 [facility] Last Admin: 08/13/17 05:55 Dose: 40 mg Thiamine HCl (Vitamin B1 Tab) 100 mg PO DAILY [facility] Last Admin: 08/13/17 10:14 Dose: 100 mg - Labs Labs: 08/12/17 06:24 08/12/17 06:24 PT 23.9 SECONDS (9.7-12.2) H 08/09/17 04:49 INR 2.1 08/09/17 04:49 APTT 63 SECONDS (21-34) H 08/09/17 04:49 - Constitutional Appears: No Acute Distress - Head Exam Head Exam: NORMAL INSPECTION - Eye Exam Eye Exam: EOMI, PERRL - ENT Exam ENT Exam: Normal Oropharynx - Neck Exam Neck Exam: Normal Inspection - Respiratory Exam Respiratory Exam: Decreased Breath Sounds (BASES. fEW RHONCHI RIGHT SIDE.) - Cardiovascular Exam Cardiovascular Exam: REGULAR RHYTHM, +S1, +S2 - GI/Abdominal Exam GI & Abdominal Exam: Soft, Normal Bowel Sounds - Extremities Exam Extremities Exam: absent: Calf Tenderness, Pedal Edema - Neurological Exam Neurological Exam: Awake, CN II-XII Intact, Oriented x3 - Psychiatric Exam Psychiatric exam: Depressed - Skin Skin Exam: Dry, Warm Assessment and Plan (1) Sepsis Assessment & Plan: blood cultures negative to date. Urine culture negative growth. On antibiotics Status: Acute (2) Leukocytosis Assessment & Plan: Continue IV Zosyn 3.375 every 8 hourly. Continue IV vancomycin 750 mg every 12 hourly Status: Acute (3) Pneumonia Status: Acute (4) NSTEMI (non-ST elevated myocardial infarction) Status: Acute (5) UTI (urinary tract infection) Status: Acute (6) Metastatic primary lung cancer Assessment & Plan: prognosis guarded. Patient on DNR/DNI. Status: Acute (7) Syncope and collapse Status: Acute
--- NOTE | 2017-08-13 21:07 | CP.PCM.PN ---
Subjective - Date & Time of Evaluation Date of Evaluation: 08/13/17 Time of Evaluation: 19:00 - Subjective Subjective: No complaints placed on hospice Objective - Vital Signs/Intake and Output Vital Signs (last 24 hours): Temp Pulse Resp BP Pulse Ox 98.7 F 156 H 28 H 127/86 95 08/13/17 20:00 08/13/17 20:00 08/13/17 20:00 08/13/17 20:00 08/13/17 16:27 Intake and Output: 08/13/17 08/14/17 18:59 06:59 Intake Total 210 Balance 210 - Labs Labs: 08/12/17 06:24 08/12/17 06:24 PT 23.9 SECONDS (9.7-12.2) H 08/09/17 04:49 INR 2.1 08/09/17 04:49 APTT 63 SECONDS (21-34) H 08/09/17 04:49 - Head Exam Head Exam: ATRAUMATIC - Eye Exam Eye Exam: Normal appearance - ENT Exam ENT Exam: Mucous Membranes Dry - Respiratory Exam Respiratory Exam: Decreased Breath Sounds - Cardiovascular Exam Cardiovascular Exam: +S1, +S2 - GI/Abdominal Exam GI & Abdominal Exam: Normal Bowel Sounds - Extremities Exam Extremities Exam: Normal Inspection Assessment and Plan (1) Metastatic primary lung cancer Assessment & Plan: for hospice supportive care DNR/DNI Status: Acute (2) Leukocytosis Status: Acute (3) Anemia Status: Acute (4) Thrombocytopenia Status: Acute (5) Coagulopathy Status: Acute
[2017-08-13] MEDS ORDERED: HYDROmorphone 0.5 mg/0.5 ml ISec IVP PRN (22:22)
[2017-08-14] MEDS: Piperacill/Tazo 3.375gm in Dex 3.375 GM/50 ML BAG IVPB SCH ×2 (01:59→05:02)
[2017-08-14] MEDS: Vancomycin 750mg/D5W 150 ml 150 ML IVPB SCH (05:58)
[2017-08-14] MEDS: Pantoprazole 40 mg Susp UD PO SCH (06:48)
[2017-08-14] MEDS: Albuterol 0.083% Inhal Sol (2.5 mg/3 mL) UD INH PRN (07:38)
[2017-08-14] MEDS ORDERED: Budesonide 0.5 mg/2 ml Inhal Susp UD INH SCH (08:00)
--- NOTE | 2017-08-14 11:50 | CP.PCM.DIS ---
<PriyaMaria Fernanda - Last Filed: 08/14/17 11:50> Provider - Provider Date of Admission: 08/09/17 05:54 Attending physician: Alo Little MD Hospital Course - Lab Results Lab Results: Micro Results 08/09/17 07:30 Blood Blood Culture - Final NO GROWTH AFTER 5 DAYS 08/09/17 07:30 Blood Gram Stain - Final TEST NOT PERFORMED 08/09/17 07:00 Blood Blood Culture - Final NO GROWTH AFTER 5 DAYS 08/09/17 07:00 Blood Gram Stain - Final TEST NOT PERFORMED 08/10/17 01:30 Blood-Thru Central Line Blood Culture - Preliminary NO GROWTH AFTER 4 DAYS 08/10/17 01:00 Blood-Thru Central Line Blood Culture - Preliminary NO GROWTH AFTER 4 DAYS 08/11/17 17:16 Urine,Calix Urine Culture - Final No Growth (<1,000 CFU/ML) 08/09/17 14:40 Naris MRSA Culture (Admit) - Final MRSA NOT DETECTED Most Recent Lab Values WBC 17.6 K/uL (4.8-10.8) H 08/12/17 06:24 RBC 3.45 Mil/uL (4.40-5.90) L 08/12/17 06:24 Hgb 9.2 g/dL (12.0-18.0) L D 08/12/17 06:24 Hct 29.6 % (35.0-51.0) L 08/12/17 06:24 MCV 85.8 fL (80.0-94.0) 08/12/17 06:24 MCH 26.6 pg (27.0-31.0) L 08/12/17 06:24 MCHC 31.0 g/dL (33.0-37.0) L 08/12/17 06:24 RDW 18.5 % (11.5-14.5) H 08/12/17 06:24 Plt Count 96 K/uL (130-400) L 08/12/17 06:24 MPV 8.5 fL (7.2-11.7) 08/12/17 06:24 Neut % (Auto) 90.8 % (50.0-75.0) H 08/12/17 06:24 Lymph % (Auto) 2.4 % (20.0-40.0) L 08/12/17 06:24 Charles % (Auto) 6.5 % (0.0-10.0) 08/12/17 06:24 Eos % (Auto) 0.1 % (0.0-4.0) 08/12/17 06:24 Baso % (Auto) 0.2 % (0.0-2.0) 08/12/17 06:24 Neut # 16.0 K/uL (1.8-7.0) H 08/12/17 06:24 Lymph # 0.4 K/uL (1.0-4.3) L 08/12/17 06:24 Charles # 1.1 K/uL (0.0-0.8) H 08/12/17 06:24 Eos # 0.0 K/uL (0.0-0.7) 08/12/17 06:24 Baso # 0.0 K/uL (0.0-0.2) 08/12/17 06:24 Neutrophils % (Manual) 93 % (50-75) H 08/12/17 06:24 Band Neutrophils % 2 % (0-2) 08/12/17 06:24 Lymphocytes % (Manual) 1 % (20-40) L 08/12/17 06:24 Reactive Lymphs % 1 % (0-0) H 08/09/17 04:49 Monocytes % (Manual) 4 % (0-10) 08/12/17 06:24 Platelet Estimate Decreased (NORMAL) L 08/12/17 06:24 Large Platelets Present 08/12/17 06:24 Hypochromasia (manual) Slight 08/12/17 06:24 Anisocytosis (manual) Slight 08/12/17 06:24 Nav Cells Slight 08/10/17 06:02 PT 23.9 SECONDS (9.7-12.2) H 08/09/17 04:49 INR 2.1 08/09/17 04:49 APTT 63 SECONDS (21-34) H 08/09/17 04:49 Puncture Site Rbrachial 08/10/17 04:55 pCO2 38 mm/Hg (35-45) 08/10/17 04:55 pO2 82 mm/Hg (80-100) 08/10/17 04:55 HCO3 22.5 mmol/L (21-28) 08/10/17 04:55 ABG pH 7.37 (7.35-7.45) 08/10/17 04:55 ABG Total CO2 23.2 mmol/L (22-28) 08/10/17 04:55 ABG O2 Saturation 97.4 % (95-98) 08/10/17 04:55 ABG Base Excess -3.0 mmol/L (-2.0-3.0) L 08/10/17 04:55 ABG Hemoglobin 10.2 g/dL (11.7-17.4) L 08/10/17 04:55 ABG Carboxyhemoglobin 2.2 % (0.5-1.5) H 08/10/17 04:55 POC ABG HHb (Measured) 2.5 % (0.0-5.0) 08/10/17 04:55 ABG Methemoglobin 0.9 % (0.0-3.0) 08/10/17 04:55 Severiano Test Neg 08/10/17 04:55 ABG Potassium 4.0 mmol/L (3.6-5.2) 08/09/17 12:51 VBG pH 7.31 (7.32-7.43) L 08/09/17 04:54 VBG pCO2 50 mmHg (40-60) 08/09/17 04:54 VBG HCO3 21.8 mmol/L 08/09/17 04:54 VBG Total CO2 26.7 mmol/L (22-28) 08/09/17 04:54 VBG O2 Sat (Calc) 35.0 % (40-65) L 08/09/17 04:54 VBG Base Excess -1.7 mmol/L (0.0-2.0) L 08/09/17 04:54 VBG Potassium 5.6 mmol/L (3.6-5.2) H 08/09/17 04:54 A-a O2 Difference 156.0 mm/Hg 08/10/17 04:55 Respiratory Index 1.9 08/10/17 04:55 Hgb O2 Saturation 94.3 % (95.0-98.0) L 08/10/17 04:55 Sodium 132.0 mmol/l (132-148) 08/09/17 12:51 Chloride 108.0 mmol/L (98-107) H 08/09/17 12:51 Glucose 127 mg/dl (75-110) H 08/09/17 12:51 Lactate 1.1 mmol/L (0.7-2.1) 08/09/17 12:51 Liter Flow 30.0 08/10/17 04:55 FiO2 40.0 % 08/10/17 04:55 Crit Value Called To Dr elder 08/09/17 04:54 Crit Value Called By Lesly dean rt 08/09/17 04:54 Crit Value Read Back Y 08/09/17 04:54 Blood Gas Notified Time 457 08/09/17 04:54 Sodium 138 mmol/L (132-148) 08/12/17 06:24 Potassium 3.8 mmol/L (3.6-5.2) 08/12/17 06:24 Chloride 103 mmol/L (98-107) 08/12/17 06:24 Carbon Dioxide 24 mmol/L (22-30) 08/12/17 06:24 Anion Gap 14 (10-20) 08/12/17 06:24 BUN 17 mg/dL (9-20) 08/12/17 06:24 Creatinine 0.7 MG/DL (0.8-1.5) L 08/12/17 06:24 Est GFR ( Amer) > 60 08/12/17 06:24 Est GFR (Non-Af Amer) > 60 08/12/17 06:24 POC Glucose (mg/dL) 191 mg/dL (65-110) H 08/09/17 04:32 Random Glucose 74 mg/dL (75-110) L 08/12/17 06:24 Calcium 6.9 mg/dl (8.6-10.4) L 08/12/17 06:24 Phosphorus 3.0 mg/dL (2.5-4.5) 08/12/17 06:24 Magnesium 1.9 mg/dL (1.6-2.3) 08/12/17 06:24 Total Bilirubin 0.5 mg/dL (0.2-1.3) 08/12/17 06:24 AST 20 U/L (17-59) 08/12/17 06:24 ALT 26 U/L (21-72) 08/12/17 06:24 Alkaline Phosphatase 94 U/L (38-126) 08/12/17 06:24 Total Creatine Kinase 64 U/L (55-170) 08/09/17 21:31 CK-MB (Mass) 5.94 ng/mL (0.0-3.38) H 08/09/17 21:31 Troponin I 0.8940 ng/mL (0.00-0.120) H* 08/09/17 04:49 Troponin I, Quant 0.6800 ng/mL (0.00-0.120) H* 08/09/17 21:31 Total Protein 5.2 g/dL (6.3-8.3) L 08/12/17 06:24 Albumin 2.2 g/dL (3.5-5.0) L D 08/12/17 06:24 Globulin 3.1 gm/dL (2.2-3.9) 08/12/17 06:24 Albumin/Globulin Ratio 0.7 (1.0-2.1) L 08/12/17 06:24 Lipase < 10 U/L (23-300) L 08/09/17 04:49 Procalcitonin 13.32 NG/ML (0.19-0.49) H 08/09/17 12:41 Thyroxine (T4) 3.63 ug/dL (5.5-11.0) L 08/09/17 12:41 TSH 3rd Generation 2.33 mIU/L (0.46-4.68) 08/09/17 12:41 Arterial Blood Potassium 4.0 mmol/L (3.6-5.2) 08/09/17 12:51 Venous Blood Potassium 5.6 mmol/L (3.6-5.2) H 08/09/17 04:54 Urine Color [place] (YELLOW) 08/09/17 04:30 Urine Clarity Hazy (Clear) 08/09/17 04:30 Urine pH 5.0 (5.0-8.0) 08/09/17 04:30 Ur Specific [place] 1.024 (1.003-1.030) 08/09/17 04:30 Urine Protein 1+ mg/dL (NEGATIVE) H 08/09/17 04:30 Urine Glucose (UA) 1+ mg/dL (Normal) H 08/09/17 04:30 Urine Ketones Negative mg/dL (NEGATIVE) 08/09/17 04:30 Urine Blood 1+ (NEGATIVE) H 08/09/17 04:30 Urine Nitrate Negative (NEGATIVE) 08/09/17 04:30 Urine Bilirubin Negative (NEGATIVE) 08/09/17 04:30 Urine Urobilinogen Normal mg/dL (0.2-1.0) 08/09/17 04:30 Ur Leukocyte Esterase Trace Isamar/uL (Negative) 08/09/17 04:30 Urine WBC (Auto) 24 /hpf (0-5) H 08/09/17 04:30 Urine RBC (Auto) 69 /hpf (0-3) H 08/09/17 04:30 Ur Squamous Epith Cells 1 /hpf (0-5) 08/09/17 04:30 Urine Bacteria Many (<OCC) H 08/09/17 04:30 Hyaline Casts >20 /lpf (0-2) H 08/09/17 04:30 Vancomycin Trough 17.1 ug/mL (5.0-10.0) H 08/12/17 06:24 Blood Type O POSITIVE 08/11/17 10:44 Antibody Screen Negative 08/11/17 10:44 - Hospital Course Hospital Course: HPI: Patient is a 67 y/o male with a PMH of Lung CA who presents to the ER with a CC of LOC yesterday morning. Patient states he was feeling week and passed out. He woke up around 3pm and called an ambulance. He noticed he had loss control of his bowels and bladder. He denies having any aura before passing out. He was sitting on the couch prior to this episode. It has never happened before. He is complaining of chest pain and SOB. Denies any nausea or vomiting. He has been having fevers and chills. Home O2 makes the SOB better. He is lethargic. Patient sees Dr. Tyrese Ward for Oncology. He was recently at [facility] and discharged 2 days ago after receiving treatment for his lung cancer. Patient ambulates independently. CT scan showed Right lung conolidation and very poor aeration. The CT head was suspicious for mets, most likely from the lungs 08/09 admission Patient seen and evaluated for Sepsis, NSTEMI, Severe , Systolic CHF (EF 25- 30%), Metastatic CA CXR EKG Chest CT: right upper and middle lungs have lack of aerated pulmonary tissue. bilateral pleural effusions with possible loculations of the right side. Atelectasis noted in medial right lower lung. numerous compression fractures Head CT Duplex scan of Lower extremity artery: no evidence of deep or superficial Vein thrombosis on bilateral lower extremities 08/10 patient was in critical care unit 08/11 Patient continues to have mild shortness of breath. Palliative counseling requested. Camille Vazquez APN-C: Family meeting with Yandel Mcclendon, patient's brother and POA where DNR/DNI was agreed upon by patient and brother. Hospice care was discussed and agreed with the patient and brother. 08/12 Patient placed DNR/DNI with hospice evaluation in progress. changed pain medications to Dilaudid PRN. pulmonology discussed the plan with family at bedside and ICU staff. Patient on Ventimask due to refusal of Bipap 08/13 Patient on Bipap due to hypoxia 08/13: Patient placed on hospice 08/14: patient transferred to hospice today. Discharge Exam - Head Exam Head Exam: NORMAL INSPECTION Discharge Plan - Follow Up Plan Condition: CRITICAL Disposition: HOSPICE - MEDICAL FACILITY <Isaak Ward - Last Filed: 08/14/17 18:02> Provider - Provider Date of Admission: 08/09/17 05:54 Attending physician: Alo Little MD Time Spent in preparation of Discharge (in minutes): 40 Hospital Course - Lab Results Lab Results: Micro Results 08/09/17 07:30 Blood Blood Culture - Final NO GROWTH AFTER 5 DAYS 08/09/17 07:30 Blood Gram Stain - Final TEST NOT PERFORMED 08/09/17 07:00 Blood Blood Culture - Final NO GROWTH AFTER 5 DAYS 08/09/17 07:00 Blood Gram Stain - Final TEST NOT PERFORMED 08/10/17 01:30 Blood-Thru Central Line Blood Culture - Preliminary NO GROWTH AFTER 4 DAYS 08/10/17 01:00 Blood-Thru Central Line Blood Culture - Preliminary NO GROWTH AFTER 4 DAYS 08/11/17 17:16 Urine,Calix Urine Culture - Final No Growth (<1,000 CFU/ML) 08/09/17 14:40 Naris MRSA Culture (Admit) - Final MRSA NOT DETECTED Most Recent Lab Values WBC 17.6 K/uL (4.8-10.8) H 08/12/17 06:24 RBC 3.45 Mil/uL (4.40-5.90) L 08/12/17 06:24 Hgb 9.2 g/dL (12.0-18.0) L D 08/12/17 06:24 Hct 29.6 % (35.0-51.0) L 08/12/17 06:24 MCV 85.8 fL (80.0-94.0) 08/12/17 06:24 MCH 26.6 pg (27.0-31.0) L 08/12/17 06:24 MCHC 31.0 g/dL (33.0-37.0) L 08/12/17 06:24 RDW 18.5 % (11.5-14.5) H 08/12/17 06:24 Plt Count 96 K/uL (130-400) L 08/12/17 06:24 MPV 8.5 fL (7.2-11.7) 08/12/17 06:24 Neut % (Auto) 90.8 % (50.0-75.0) H 08/12/17 06:24 Lymph % (Auto) 2.4 % (20.0-40.0) L 08/12/17 06:24 Charles % (Auto) 6.5 % (0.0-10.0) 08/12/17 06:24 Eos % (Auto) 0.1 % (0.0-4.0) 08/12/17 06:24 Baso % (Auto) 0.2 % (0.0-2.0) 08/12/17 06:24 Neut # 16.0 K/uL (1.8-7.0) H 08/12/17 06:24 Lymph # 0.4 K/uL (1.0-4.3) L 08/12/17 06:24 Charles # 1.1 K/uL (0.0-0.8) H 08/12/17 06:24 Eos # 0.0 K/uL (0.0-0.7) 08/12/17 06:24 Baso # 0.0 K/uL (0.0-0.2) 08/12/17 06:24 Neutrophils % (Manual) 93 % (50-75) H 08/12/17 06:24 Band Neutrophils % 2 % (0-2) 08/12/17 06:24 Lymphocytes % (Manual) 1 % (20-40) L 08/12/17 06:24 Reactive Lymphs % 1 % (0-0) H 08/09/17 04:49 Monocytes % (Manual) 4 % (0-10) 08/12/17 06:24 Platelet Estimate Decreased (NORMAL) L 08/12/17 06:24 Large Platelets Present 08/12/17 06:24 Hypochromasia (manual) Slight 08/12/17 06:24 Anisocytosis (manual) Slight 08/12/17 06:24 [place] Cells Slight 08/10/17 06:02 PT 23.9 SECONDS (9.7-12.2) H 08/09/17 04:49 INR 2.1 08/09/17 04:49 APTT 63 SECONDS (21-34) H 08/09/17 04:49 Puncture Site Rbrachial 08/10/17 04:55 pCO2 38 mm/Hg (35-45) 08/10/17 04:55 pO2 82 mm/Hg (80-100) 08/10/17 04:55 HCO3 22.5 mmol/L (21-28) 08/10/17 04:55 ABG pH 7.37 (7.35-7.45) 08/10/17 04:55 ABG Total CO2 23.2 mmol/L (22-28) 08/10/17 04:55 ABG O2 Saturation 97.4 % (95-98) 08/10/17 04:55 ABG Base Excess -3.0 mmol/L (-2.0-3.0) L 08/10/17 04:55 ABG Hemoglobin 10.2 g/dL (11.7-17.4) L 08/10/17 04:55 ABG Carboxyhemoglobin 2.2 % (0.5-1.5) H 08/10/17 04:55 POC ABG HHb (Measured) 2.5 % (0.0-5.0) 08/10/17 04:55 ABG Methemoglobin 0.9 % (0.0-3.0) 08/10/17 04:55 Severiano Test Neg 08/10/17 04:55 ABG Potassium 4.0 mmol/L (3.6-5.2) 08/09/17 12:51 VBG pH 7.31 (7.32-7.43) L 08/09/17 04:54 VBG pCO2 50 mmHg (40-60) 08/09/17 04:54 VBG HCO3 21.8 mmol/L 08/09/17 04:54 VBG Total CO2 26.7 mmol/L (22-28) 08/09/17 04:54 VBG O2 Sat (Calc) 35.0 % (40-65) L 08/09/17 04:54 VBG Base Excess -1.7 mmol/L (0.0-2.0) L 08/09/17 04:54 VBG Potassium 5.6 mmol/L (3.6-5.2) H 08/09/17 04:54 A-a O2 Difference 156.0 mm/Hg 08/10/17 04:55 Respiratory Index 1.9 08/10/17 04:55 Hgb O2 Saturation 94.3 % (95.0-98.0) L 08/10/17 04:55 Sodium 132.0 mmol/l (132-148) 08/09/17 12:51 Chloride 108.0 mmol/L (98-107) H 08/09/17 12:51 Glucose 127 mg/dl (75-110) H 08/09/17 12:51 Lactate 1.1 mmol/L (0.7-2.1) 08/09/17 12:51 Liter Flow 30.0 08/10/17 04:55 FiO2 40.0 % 08/10/17 04:55 Crit Value Called To Dr elder 08/09/17 04:54 Crit Value Called By Lesly dean rt 08/09/17 04:54 Crit Value Read Back Y 08/09/17 04:54 Blood Gas Notified Time 457 08/09/17 04:54 Sodium 138 mmol/L (132-148) 08/12/17 06:24 Potassium 3.8 mmol/L (3.6-5.2) 08/12/17 06:24 Chloride 103 mmol/L (98-107) 08/12/17 06:24 Carbon Dioxide 24 mmol/L (22-30) 08/12/17 06:24 Anion Gap 14 (10-20) 08/12/17 06:24 BUN 17 mg/dL (9-20) 08/12/17 06:24 Creatinine 0.7 MG/DL (0.8-1.5) L 08/12/17 06:24 Est GFR ( Amer) > 60 08/12/17 06:24 Est GFR (Non-Af Amer) > 60 08/12/17 06:24 POC Glucose (mg/dL) 191 mg/dL (65-110) H 08/09/17 04:32 Random Glucose 74 mg/dL (75-110) L 08/12/17 06:24 Calcium 6.9 mg/dl (8.6-10.4) L 08/12/17 06:24 Phosphorus 3.0 mg/dL (2.5-4.5) 08/12/17 06:24 Magnesium 1.9 mg/dL (1.6-2.3) 08/12/17 06:24 Total Bilirubin 0.5 mg/dL (0.2-1.3) 08/12/17 06:24 AST 20 U/L (17-59) 08/12/17 06:24 ALT 26 U/L (21-72) 08/12/17 06:24 Alkaline Phosphatase 94 U/L (38-126) 08/12/17 06:24 Total Creatine Kinase 64 U/L (55-170) 08/09/17 21:31 CK-MB (Mass) 5.94 ng/mL (0.0-3.38) H 08/09/17 21:31 Troponin I 0.8940 ng/mL (0.00-0.120) H* 08/09/17 04:49 Troponin I, Quant 0.6800 ng/mL (0.00-0.120) H* 08/09/17 21:31 Total Protein 5.2 g/dL (6.3-8.3) L 08/12/17 06:24 Albumin 2.2 g/dL (3.5-5.0) L D 08/12/17 06:24 Globulin 3.1 gm/dL (2.2-3.9) 08/12/17 06:24 Albumin/Globulin Ratio 0.7 (1.0-2.1) L 08/12/17 06:24 Lipase < 10 U/L (23-300) L 08/09/17 04:49 Procalcitonin 13.32 NG/ML (0.19-0.49) H 08/09/17 12:41 Thyroxine (T4) 3.63 ug/dL (5.5-11.0) L 08/09/17 12:41 TSH 3rd Generation 2.33 mIU/L (0.46-4.68) 08/09/17 12:41 Arterial Blood Potassium 4.0 mmol/L (3.6-5.2) 08/09/17 12:51 Venous Blood Potassium 5.6 mmol/L (3.6-5.2) H 08/09/17 04:54 Urine Color [place] (YELLOW) 08/09/17 04:30 Urine Clarity Hazy (Clear) 08/09/17 04:30 Urine pH 5.0 (5.0-8.0) 08/09/17 04:30 Ur Specific [place] 1.024 (1.003-1.030) 08/09/17 04:30 Urine Protein 1+ mg/dL (NEGATIVE) H 08/09/17 04:30 Urine Glucose (UA) 1+ mg/dL (Normal) H 08/09/17 04:30 Urine Ketones Negative mg/dL (NEGATIVE) 08/09/17 04:30 Urine Blood 1+ (NEGATIVE) H 08/09/17 04:30 Urine Nitrate Negative (NEGATIVE) 08/09/17 04:30 Urine Bilirubin Negative (NEGATIVE) 08/09/17 04:30 Urine Urobilinogen Normal mg/dL (0.2-1.0) 08/09/17 04:30 Ur Leukocyte Esterase Trace Isamar/uL (Negative) 08/09/17 04:30 Urine WBC (Auto) 24 /hpf (0-5) H 08/09/17 04:30 Urine RBC (Auto) 69 /hpf (0-3) H 08/09/17 04:30 Ur Squamous Epith Cells 1 /hpf (0-5) 08/09/17 04:30 Urine Bacteria Many (<OCC) H 08/09/17 04:30 Hyaline Casts >20 /lpf (0-2) H 08/09/17 04:30 Vancomycin Trough 17.1 ug/mL (5.0-10.0) H 08/12/17 06:24 Blood Type O POSITIVE 08/11/17 10:44 Antibody Screen Negative 08/11/17 10:44
--- NOTE | 2017-08-14 17:43 | CP.PCM.DIS ---
Provider - Provider Date of Admission: 08/09/17 05:54 Attending physician: Alo Little MD Consults: Neurology Dr. Ricci Pulmonology Dr. Bradford Hematology/Oncology Dr. Katiana Murray ID Dr. Salma Melendez Time Spent in preparation of Discharge (in minutes): 40 Hospital Course - Lab Results Lab Results: Micro Results 08/09/17 07:30 Blood Blood Culture - Final NO GROWTH AFTER 5 DAYS 08/09/17 07:30 Blood Gram Stain - Final TEST NOT PERFORMED 08/09/17 07:00 Blood Blood Culture - Final NO GROWTH AFTER 5 DAYS 08/09/17 07:00 Blood Gram Stain - Final TEST NOT PERFORMED 08/10/17 01:30 Blood-Thru Central Line Blood Culture - Preliminary NO GROWTH AFTER 4 DAYS 08/10/17 01:00 Blood-Thru Central Line Blood Culture - Preliminary NO GROWTH AFTER 4 DAYS 08/11/17 17:16 Urine,Calix Urine Culture - Final No Growth (<1,000 CFU/ML) 08/09/17 14:40 Naris MRSA Culture (Admit) - Final MRSA NOT DETECTED Most Recent Lab Values WBC 17.6 K/uL (4.8-10.8) H 08/12/17 06:24 RBC 3.45 Mil/uL (4.40-5.90) L 08/12/17 06:24 Hgb 9.2 g/dL (12.0-18.0) L D 08/12/17 06:24 Hct 29.6 % (35.0-51.0) L 08/12/17 06:24 MCV 85.8 fL (80.0-94.0) 08/12/17 06:24 MCH 26.6 pg (27.0-31.0) L 08/12/17 06:24 MCHC 31.0 g/dL (33.0-37.0) L 08/12/17 06:24 RDW 18.5 % (11.5-14.5) H 08/12/17 06:24 Plt Count 96 K/uL (130-400) L 08/12/17 06:24 MPV 8.5 fL (7.2-11.7) 08/12/17 06:24 Neut % (Auto) 90.8 % (50.0-75.0) H 08/12/17 06:24 Lymph % (Auto) 2.4 % (20.0-40.0) L 08/12/17 06:24 [place] % (Auto) 6.5 % (0.0-10.0) 08/12/17 06:24 Eos % (Auto) 0.1 % (0.0-4.0) 08/12/17 06:24 Baso % (Auto) 0.2 % (0.0-2.0) 08/12/17 06:24 Neut # 16.0 K/uL (1.8-7.0) H 08/12/17 06:24 Lymph # 0.4 K/uL (1.0-4.3) L 08/12/17 06:24 [place] # 1.1 K/uL (0.0-0.8) H 08/12/17 06:24 Eos # 0.0 K/uL (0.0-0.7) 08/12/17 06:24 Baso # 0.0 K/uL (0.0-0.2) 08/12/17 06:24 Neutrophils % (Manual) 93 % (50-75) H 08/12/17 06:24 Band Neutrophils % 2 % (0-2) 08/12/17 06:24 Lymphocytes % (Manual) 1 % (20-40) L 08/12/17 06:24 Reactive Lymphs % 1 % (0-0) H 08/09/17 04:49 Monocytes % (Manual) 4 % (0-10) 08/12/17 06:24 Platelet Estimate Decreased (NORMAL) L 08/12/17 06:24 Large Platelets Present 08/12/17 06:24 Hypochromasia (manual) Slight 08/12/17 06:24 Anisocytosis (manual) Slight 08/12/17 06:24 Nav Cells Slight 08/10/17 06:02 PT 23.9 SECONDS (9.7-12.2) H 08/09/17 04:49 INR 2.1 08/09/17 04:49 APTT 63 SECONDS (21-34) H 08/09/17 04:49 Puncture Site Rbrachial 08/10/17 04:55 pCO2 38 mm/Hg (35-45) 08/10/17 04:55 pO2 82 mm/Hg (80-100) 08/10/17 04:55 HCO3 22.5 mmol/L (21-28) 08/10/17 04:55 ABG pH 7.37 (7.35-7.45) 08/10/17 04:55 ABG Total CO2 23.2 mmol/L (22-28) 08/10/17 04:55 ABG O2 Saturation 97.4 % (95-98) 08/10/17 04:55 ABG Base Excess -3.0 mmol/L (-2.0-3.0) L 08/10/17 04:55 ABG Hemoglobin 10.2 g/dL (11.7-17.4) L 08/10/17 04:55 ABG Carboxyhemoglobin 2.2 % (0.5-1.5) H 08/10/17 04:55 POC ABG HHb (Measured) 2.5 % (0.0-5.0) 08/10/17 04:55 ABG Methemoglobin 0.9 % (0.0-3.0) 08/10/17 04:55 Severiano Test Neg 08/10/17 04:55 ABG Potassium 4.0 mmol/L (3.6-5.2) 08/09/17 12:51 VBG pH 7.31 (7.32-7.43) L 08/09/17 04:54 VBG pCO2 50 mmHg (40-60) 08/09/17 04:54 VBG HCO3 21.8 mmol/L 08/09/17 04:54 VBG Total CO2 26.7 mmol/L (22-28) 08/09/17 04:54 VBG O2 Sat (Calc) 35.0 % (40-65) L 08/09/17 04:54 VBG Base Excess -1.7 mmol/L (0.0-2.0) L 08/09/17 04:54 VBG Potassium 5.6 mmol/L (3.6-5.2) H 08/09/17 04:54 A-a O2 Difference 156.0 mm/Hg 08/10/17 04:55 Respiratory Index 1.9 08/10/17 04:55 Hgb O2 Saturation 94.3 % (95.0-98.0) L 08/10/17 04:55 Sodium 132.0 mmol/l (132-148) 08/09/17 12:51 Chloride 108.0 mmol/L (98-107) H 08/09/17 12:51 Glucose 127 mg/dl (75-110) H 08/09/17 12:51 Lactate 1.1 mmol/L (0.7-2.1) 08/09/17 12:51 Liter Flow 30.0 08/10/17 04:55 FiO2 40.0 % 08/10/17 04:55 Crit Value Called To Dr elder 08/09/17 04:54 Crit Value Called By Lesly dena rt 08/09/17 04:54 Crit Value Read Back Y 08/09/17 04:54 Blood Gas Notified Time 457 08/09/17 04:54 Sodium 138 mmol/L (132-148) 08/12/17 06:24 Potassium 3.8 mmol/L (3.6-5.2) 08/12/17 06:24 Chloride 103 mmol/L (98-107) 08/12/17 06:24 Carbon Dioxide 24 mmol/L (22-30) 08/12/17 06:24 Anion Gap 14 (10-20) 08/12/17 06:24 BUN 17 mg/dL (9-20) 08/12/17 06:24 Creatinine 0.7 MG/DL (0.8-1.5) L 08/12/17 06:24 Est GFR ( Amer) > 60 08/12/17 06:24 Est GFR (Non-Af Amer) > 60 08/12/17 06:24 POC Glucose (mg/dL) 191 mg/dL (65-110) H 08/09/17 04:32 Random Glucose 74 mg/dL (75-110) L 08/12/17 06:24 Calcium 6.9 mg/dl (8.6-10.4) L 08/12/17 06:24 Phosphorus 3.0 mg/dL (2.5-4.5) 08/12/17 06:24 Magnesium 1.9 mg/dL (1.6-2.3) 08/12/17 06:24 Total Bilirubin 0.5 mg/dL (0.2-1.3) 08/12/17 06:24 AST 20 U/L (17-59) 08/12/17 06:24 ALT 26 U/L (21-72) 08/12/17 06:24 Alkaline Phosphatase 94 U/L (38-126) 08/12/17 06:24 Total Creatine Kinase 64 U/L (55-170) 08/09/17 21:31 CK-MB (Mass) 5.94 ng/mL (0.0-3.38) H 08/09/17 21:31 Troponin I 0.8940 ng/mL (0.00-0.120) H* 08/09/17 04:49 Troponin I, Quant 0.6800 ng/mL (0.00-0.120) H* 08/09/17 21:31 Total Protein 5.2 g/dL (6.3-8.3) L 08/12/17 06:24 Albumin 2.2 g/dL (3.5-5.0) L D 08/12/17 06:24 Globulin 3.1 gm/dL (2.2-3.9) 08/12/17 06:24 Albumin/Globulin Ratio 0.7 (1.0-2.1) L 08/12/17 06:24 Lipase < 10 U/L (23-300) L 08/09/17 04:49 Procalcitonin 13.32 NG/ML (0.19-0.49) H 08/09/17 12:41 Thyroxine (T4) 3.63 ug/dL (5.5-11.0) L 08/09/17 12:41 TSH 3rd Generation 2.33 mIU/L (0.46-4.68) 08/09/17 12:41 Arterial Blood Potassium 4.0 mmol/L (3.6-5.2) 08/09/17 12:51 Venous Blood Potassium 5.6 mmol/L (3.6-5.2) H 08/09/17 04:54 Urine Color [place] (YELLOW) 08/09/17 04:30 Urine Clarity Hazy (Clear) 08/09/17 04:30 Urine pH 5.0 (5.0-8.0) 08/09/17 04:30 Ur Specific [place] 1.024 (1.003-1.030) 08/09/17 04:30 Urine Protein 1+ mg/dL (NEGATIVE) H 08/09/17 04:30 Urine Glucose (UA) 1+ mg/dL (Normal) H 08/09/17 04:30 Urine Ketones Negative mg/dL (NEGATIVE) 08/09/17 04:30 Urine Blood 1+ (NEGATIVE) H 08/09/17 04:30 Urine Nitrate Negative (NEGATIVE) 08/09/17 04:30 Urine Bilirubin Negative (NEGATIVE) 08/09/17 04:30 Urine Urobilinogen Normal mg/dL (0.2-1.0) 08/09/17 04:30 Ur Leukocyte Esterase Trace Isamar/uL (Negative) 08/09/17 04:30 Urine WBC (Auto) 24 /hpf (0-5) H 08/09/17 04:30 Urine RBC (Auto) 69 /hpf (0-3) H 08/09/17 04:30 Ur Squamous Epith Cells 1 /hpf (0-5) 08/09/17 04:30 Urine Bacteria Many (<OCC) H 08/09/17 04:30 Hyaline Casts >20 /lpf (0-2) H 08/09/17 04:30 Vancomycin Trough 17.1 ug/mL (5.0-10.0) H 08/12/17 06:24 Blood Type O POSITIVE 08/11/17 10:44 Antibody Screen Negative 08/11/17 10:44 - Hospital Course Hospital Course: Patient was seen and examined at 12 PM 08/14/17 Bed 555 67 year old male (PMHx of Right Lung CA being treated at [facility] by Oncologist Dr. Tyrese Ward) who was admitted on 08/09/17 for further treatment and evaluation after he lost conciousness at home with loss of bowel and bladder control. He was found to have Right Lung CA which was treated in the past by Oncologist Dr. Tyrese Ward at [facility]. He was evaluated by Hematology, Pulmonology, Neurology, and Infectious Disease. He was seen by Palliative Care and eventually decided on Hospice. He was discharged to in-patient hospice under [facility]. For full details, please see individual Assessment and Plans below. Currently upon FULL ROS: Not possible at this time as patient is in and out of consciousness Exam: HEENT: NCA, EOMI, PERRLA, NO cervical lymphadenopathy, NO thyromegaly, NO pharyngeal exudate/erythema, Dry oral mucosa and nasal turbinates Cardio: Irregularly Irregular Resp: Decreased breath sounds throughout the Right Lung, Decreased breath sound Left Upper Lung, Faint inspiratory crackles left basilar area: please note that this is limited by patient not taking in deep breaths as he is in and out of consciousness GI: NO HSM, Soft, NT, NO rebound/guarding, BSx4 reduced Ext: Capillary Refill is 2 seconds, 2+ pitting edema bilateral feet to the tibial tuberosities, Pulses are strong and equal Neuro: CN II through XII are grossly intact Assessment and Plan: 1). 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 CT Head 08/09/17 shows inferior Right Frontal Lobe 5 mm increased attenuation questionable for metastasis. MRI Brain with and without contrast was ordered but never performed due to patient condition. 08/09/17:Patient's sister Dedra [phone] was at bedside at the time of my exam, explains that the patient is being treated for this by Oncologist Dr. Tyrese Ward at [facility]. I called [facility] [phone] Tyrese Ward's phone number [phone], however this number is no longer in service and this is the same number that comes up for the him upon Google Search. Patient explains that his Brother Thuan [phone] has a copy of his Living Will/Advance Directive but patient could not provide details as to his wishes and when asked did not answer. I have asked Dedra to have Thuan bring in the copy of this document. 08/10/17: Extensive conversation with the patient today explaining all of his diagnosises as he asked what was happening with him. He asked if he was going to . I responded by telling him that his prognosis was very poor because of all that was going on with him and that the likelihood of him passing was high but that I could not predict when that would occur. I explained to him that he needed to think about what his wishes were and to the extent that he wanted treatment. He understands that Palliative Care Nurse will be speaking with him on 08/11/17. I also called and spoke with Sister Dedra [phone] and updated her as well and she informed me that there is NO living will as brother Thuan had checked and patient had the paperwork for it but he never completed it. 08/11/17: Palliative Care Consult with Nurse Vazquez and patient decided on DNR /DNI Consult with Oncologist Dr. Katiana Murray 2). Loculated Right Pleural Effusion Consult Client Services Manager Dr. Bradford Vancomycin 750 mg IV Q24H Zosyn 3.375 gm IV Q6H Amikacin 500 mg IV Q24H Blood Culture 08/09/17 is negative to date Urine Culture did not show any growth Consult ID Dr. Meredith Melendez 3). Elevated Troponin/NSTEMI Could this be secondary to [place] vs secondary to AF? Explained to patient and to sister that holding anticoagulation considering the possibility of causing hemorrhage in brain given findings on CT Head as well as secondary to Anemia Consult Instruction[employer] Media Services Technician Dr. Teresa 2D Echocardiogram shows EF of 20%, moderate aortic stenosis, moderate to severe pulmonary HTN, LVSF is borderline, concentric hypertrophy 4). Seizure Secondary to possible metastasis to brain? This is certainly a possibility considering the patient's loss of consciousness and then waking up with loss of bowel and bladder control Consult Neurology Dr. Radhames Esparza 500 mg PO 2x/day 5). Atrial Fibrillation Sister Dedra does not know whether patient has a history of this or not and patient could not provide information as when asked he would not answer NO full anticoagulation (other than ASA) for reason mentioned in Assessment and Plan #3 6). Bilateral Leg Edema Bilateral Venous Duplex 08/09/17 is negative for DVT As per admitting H&P patient has history of Right Leg DVT 7). Hypotension Patient was on Dopamine 4 mcg/kg/min for pressure support 8). Respiratory Distress Patient refused BiPAP while in the ICU Pulmicort 0.5 mg INH Q12H 9). Hx of HTN Metoprolol 25 mg PO 2x/day is placed on HOLD considering the Hypotension. 10). Prophylaxis ASA 81 mg PO 1x/day Protonix 40 mg PO 1x/day Toradol 15 mg IV Q6H PRN Moderate Pain Morphine 1 mg IV Q4H PRN Severe Pain Heparin 5,000 Units SC Q8H I spoke with Vel Rodriguez from [facility] and the following orders were placed for In-Patient Hospice: Dilaudid 0.5 mg IV Q2H PRN Severe Pain Ativan 1 gm IV Q6H Acetaminophen 650 mg LA Q4H PRN Fever Dulcolax 10mg LA PRN Constipation Scopalamine Patch Q72H Diet as tolerated Vital Q8H DNR/DNI Kepra 500 mg IV Q12H Pulmicort 0.5 mg INH Q12H Isaak Ward D.O. Discharge Exam - Head Exam Head Exam: NORMAL INSPECTION Discharge Plan - Follow Up Plan Condition: CRITICAL Disposition: HOSPICE - MEDICAL FACILITY
[2017-08-14 18:35] VITALS: BP 97/68; PULSE 109; RESP 29; TEMP 97.3; O2SAT 99
--- NOTE | 2017-08-14 22:45 | CP.PCM.PN ---
Subjective - Date & Time of Evaluation Date of Evaluation: 08/12/17 Time of Evaluation: 13:10 - Subjective Subjective: Patient seen and evaluated More comfortable Denies chest pain Objective - Vital Signs/Intake and Output Vital Signs (last 24 hours): Temp Pulse Resp BP Pulse Ox 97.3 F L 109 H 29 H 97/68 L 99 08/14/17 16:00 08/14/17 16:00 08/14/17 16:00 08/14/17 16:00 08/14/17 16:00 - Labs Labs: 08/12/17 06:24 08/12/17 06:24 PT 23.9 SECONDS (9.7-12.2) H 08/09/17 04:49 INR 2.1 08/09/17 04:49 APTT 63 SECONDS (21-34) H 08/09/17 04:49
== END 2017-08-14 11:28 | disposition hospice, inpatient (51) | DRG 871 ==
LOC: C.ER 03:55 → C.9I 05:54 → C.9E 06:24 → C.9I 09:09 → UNDODISIN 08-13 20:30 → C.5S 08-13 20:36
PROVIDERS: ADMIT Internal Medicine; ATTEND Internal Medicine
DX: A41.9 Sepsis, unspecified organism (principal); I21.4 Non-ST elevation (NSTEMI) myocardial infarction; J18.9 Pneumonia, unspecified organism; D68.9 Coagulation defect, unspecified; I11.0 Hypertensive heart disease with heart failure; C79.31 Secondary malignant neoplasm of brain; I42.9 Cardiomyopathy, unspecified; I50.20 Unspecified systolic (congestive) heart failure; C79.51 Secondary malignant neoplasm of bone; C34.91 Malignant neoplasm of unspecified part of right bronchus or lung; J98.11 Atelectasis; N39.0 Urinary tract infection, site not specified; D69.6 Thrombocytopenia, unspecified; F32.9 Major depressive disorder, single episode, unspecified; D64.9 Anemia, unspecified; I35.0 Nonrheumatic aortic (valve) stenosis; I27.2 Other secondary pulmonary hypertension; I48.91 Unspecified atrial fibrillation; R09.02 Hypoxemia; R56.9 Unspecified convulsions; W19.XXXA Unspecified fall, initial encounter; Z51.5 Encounter for palliative care; Z66 Do not resuscitate; Z53.20 Procedure and treatment not carried out because of patient's decision for unspecified reasons; I25.2 Old myocardial infarction; Z79.82 Long term (current) use of aspirin; Z79.899 Other long term (current) drug therapy; Z86.711 Personal history of pulmonary embolism; Z86.718 Personal history of other venous thrombosis and embolism; Z87.891 Personal history of nicotine dependence

== ENCOUNTER 2017-08-14 11:13 | Inpatient (IN) | payer OTHER ==
[2017-08-14] MEDS ORDERED: levETIRAcetam 500 MG in Sodium Chloride 0.9% 100 ML IVPB SCH (16:45)
[2017-08-14] MEDS: levETIRAcetam 500 MG in Sodium Chloride 0.9% 100 ML IVPB SCH (17:56)
[2017-08-14] MEDS: Budesonide 0.5 mg/2 ml Inhal Susp UD INH SCH (19:29)
--- NOTE | 2017-08-14 19:46 | CP.PCM.PCO ---
Physician Communication Note - Physician Communication Note Physician Communication Note: H&P will be needed for 08/15/17. Please see D/C Summary 08/14/17
[2017-08-15] MEDS: levETIRAcetam 500 MG in Sodium Chloride 0.9% 100 ML IVPB SCH ×2 (05:48→16:45)
[2017-08-15] MEDS: Budesonide 0.5 mg/2 ml Inhal Susp UD INH SCH ×2 (07:25→20:04)
--- NOTE | 2017-08-15 13:52 | CP.PCM.HP ---
<PriyaMaria Fernanda - Last Filed: 08/15/17 17:07> History of Present Illness - History of Present Illness History of Present Illness: History and Physical for Dr. Arana Eladio M (PMHx of Right Lung CA being treated at [facility] by Oncologist Dr. Tyrese Ward) was admitted 08/09 for loss of conciousnes including loss of bowel and bladder control. Patient was found to have right lung cancer treated by Dr. Tyrese Ward at [facility]. He was evaluated by Hematology, Pulmonology, Neurology, and Infectious Disease. He was seen by Palliative Care and eventually decided on Hospice. 08/09 admission Patient seen and evaluated for Sepsis, NSTEMI, Severe , Systolic CHF (EF 25- 30%), Metastatic CA CXR EKG Chest CT: right upper and middle lungs have lack of aerated pulmonary tissue. bilateral pleural effusions with possible loculations of the right side. Atelectasis noted in medial right lower lung. numerous compression fractures Head CT Duplex scan of Lower extremity artery: no evidence of deep or superficial Vein thrombosis on bilateral lower extremities 08/10 patient was in critical care unit 08/11 Patient continues to have mild shortness of breath. Palliative counseling requested. Camlile Vazquez APN-C: Family meeting with Yandel Mcclendon, patient's brother and POA where DNR/DNI was agreed upon by patient and brother. Hospice care was discussed and agreed with the patient and brother. 08/12 Patient placed DNR/DNI with hospice evaluation in progress. changed pain medications to Dilaudid PRN. pulmonology discussed the plan with family at bedside and ICU staff. Patient on Ventimask due to refusal of Bipap 08/13 Patient on Bipap due to hypoxia 08/13: Patient placed on hospice under [facility] Present on Admission - Present on Admission Any Indicators Present on Admission: No History of DVT/PE: No History of Uncontrolled Diabetes: No Past Patient History - Past Medical History & Family History Past Medical History?: Yes - Past Social History Smoking Status: Former Smoker - CARDIAC Hx Congestive Heart Failure: Yes - PULMONARY Hx Lung Cancer: Yes - NEUROLOGICAL Hx Neurological Disorder: Yes Hx Seizures: Yes (last 2011) - HEENT Hx HEENT Problems: No - RENAL Hx Chronic Kidney Disease: No - ENDOCRINE/METABOLIC Hx Endocrine Disorders: No - HEMATOLOGICAL/ONCOLOGICAL Hx Blood Disorders: Yes Hx Cancer: Yes Hx Chemotherapy: Yes - INTEGUMENTARY Hx Dermatological Problems: No - MUSCULOSKELETAL/RHEUMATOLOGICAL Hx Musculoskeletal Disorders: Yes Hx Falls: Yes - GASTROINTESTINAL Hx Gastrointestinal Disorders: No - GENITOURINARY/GYNECOLOGICAL Hx Genitourinary Disorders: No - PSYCHIATRIC Hx Substance Use: No - SURGICAL HISTORY Hx Surgeries: No - ANESTHESIA Hx Anesthesia: No Meds Allergies/Adverse Reactions: Allergies Allergy/AdvReac Type Severity Reaction Status Date / Time No Known Allergies Allergy Unverified 08/09/17 04:13 Physical Exam - Constitutional Appears: In Acute Distress, Chronically Ill Additional comments: patient on ventimask - Head Exam Head Exam: NORMAL INSPECTION - Eye Exam Eye Exam: EOMI, Normal appearance - ENT Exam ENT Exam: Mucous Membranes Moist - Respiratory Exam Respiratory Exam: Rales, Respiratory Distress - Cardiovascular Exam Cardiovascular Exam: Tachycardia, +S1, +S2. absent: Bradycardia - GI/Abdominal Exam GI & Abdominal Exam: Soft. absent: Firm, Guarding - Extremities Exam Extremities exam: Positive for: full ROM, normal inspection. Negative for: pedal edema - Neurological Exam Neurological exam: Altered - Psychiatric Exam Additional comments: lethargic - Skin Skin Exam: Dry, Warm Results - Vital Signs Recent Vital Signs: Last Vital Signs Temp 98.1 F 08/15/17 07:20 Pulse 119 H 08/15/17 07:20 Resp 18 08/15/17 07:20 BP 119/76 08/15/17 07:20 Pulse Ox 97 08/15/17 07:20 Assessment & Plan - Assessment and Plan (Free Text) Assessment: Same Assessment and plan as listed on discharge summary by Dr. Isaak Ward additional changes Patient has scopalamine patches for secretions ventimask for ventilation. suction PRN for secretions IV ativan changed to 1mg Q4H PRN 1). 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 CT Head 08/09/17 shows inferior Right Frontal Lobe 5 mm increased attenuation questionable for metastasis. MRI Brain with and without contrast was ordered but never performed due to patient condition. 08/09/17:Patient's sister Dedra [phone] was at bedside at the time of my exam, explains that the patient is being treated for this by Oncologist Dr. Tyrese Ward at [facility]. I called [facility] [phone] Tyrese Ward's phone number [phone], however this number is no longer in service and this is the same number that comes up for the him upon Google Search. Patient explains that his Brother Thuan [phone] has a copy of his Living Will/Advance Directive but patient could not provide details as to his wishes and when asked did not answer. I have asked Dedra to have Thuan bring in the copy of this document. 08/10/17: Extensive conversation with the patient today explaining all of his diagnosises as he asked what was happening with him. He asked if he was going to . I responded by telling him that his prognosis was very poor because of all that was going on with him and that the likelihood of him passing was high but that I could not predict when that would occur. I explained to him that he needed to think about what his wishes were and to the extent that he wanted treatment. He understands that Palliative Care Nurse will be speaking with him on 08/11/17. I also called and spoke with Sister Dedra [phone] and updated her as well and she informed me that there is NO living will as brother Thuan had checked and patient had the paperwork for it but he never completed it. 08/11/17: Palliative Care Consult with Nurse Vazquez and patient decided on DNR /DNI Consult with Oncologist Dr. Katiana Murray 2). Loculated Right Pleural Effusion Consult [place] Dr. Bradford Vancomycin 750 mg IV Q24H Zosyn 3.375 gm IV Q6H Amikacin 500 mg IV Q24H Blood Culture 08/09/17 is negative to date Urine Culture did not show any growth Consult ID Dr. Meredith Melendez 3). Elevated Troponin/NSTEMI Could this be secondary to [place] vs secondary to AF? Explained to patient and to sister that holding anticoagulation considering the possibility of causing hemorrhage in brain given findings on CT Head as well as secondary to Anemia Consult Institutional Research Director Dr. Teresa 2D Echocardiogram shows EF of 20%, moderate aortic stenosis, moderate to severe pulmonary HTN, LVSF is borderline, concentric hypertrophy 4). Seizure Secondary to possible metastasis to brain? This is certainly a possibility considering the patient's loss of consciousness and then waking up with loss of bowel and bladder control Consult Neurology Dr. Radhames Esparza 500 mg PO 2x/day 5). Atrial Fibrillation Sister Dedra does not know whether patient has a history of this or not and patient could not provide information as when asked he would not answer NO full anticoagulation (other than ASA) for reason mentioned in Assessment and Plan #3 6). Bilateral Leg Edema Bilateral Venous Duplex 08/09/17 is negative for DVT As per admitting H&P patient has history of Right Leg DVT 7). Hypotension Patient was on Dopamine 4 mcg/kg/min for pressure support 8). Respiratory Distress Patient refused BiPAP while in the ICU Pulmicort 0.5 mg INH Q12H 9). Hx of HTN Metoprolol 25 mg PO 2x/day is placed on HOLD considering the Hypotension. 10). Prophylaxis ASA 81 mg PO 1x/day Protonix 40 mg PO 1x/day Toradol 15 mg IV Q6H PRN Moderate Pain Morphine 1 mg IV Q4H PRN Severe Pain Heparin 5,000 Units SC Q8H Per Vel Rodriguez from [facility] recommendations, following orders were placed for In-Patient Hospice: Dilaudid 0.5 mg IV Q2H PRN Severe Pain Ativan 1 gm IV Q6H Acetaminophen 650 mg MT Q4H PRN Fever Dulcolax 10mg MT PRN Constipation Scopalamine Patch Q72H Diet as tolerated Vital Q8H DNR/DNI Kepra 500 mg IV Q12H Pulmicort 0.5 mg INH Q12H - Date & Time Date: 08/15/17 Time: 17:09 <Tyrese Arana - Last Filed: 08/15/17 17:17> Results - Vital Signs Recent Vital Signs: Last Vital Signs Temp 98.1 F 08/15/17 07:20 Pulse 119 H 08/15/17 07:20 Resp 18 08/15/17 07:20 BP 119/76 08/15/17 07:20 Pulse Ox 97 08/15/17 07:20 Attending/Attestation - Attestation I have personally seen and examined this patient.: Yes I have fully participated in the care of the patient.: Yes I have reviewed all pertinent clinical information: Yes Notes (Text): Continue Hospice care.
[2017-08-16] MEDS: levETIRAcetam 500 MG in Sodium Chloride 0.9% 100 ML IVPB SCH ×2 (04:12→16:36)
[2017-08-16] MEDS: Budesonide 0.5 mg/2 ml Inhal Susp UD INH SCH ×2 (07:15→20:26)
--- NOTE | 2017-08-16 08:57 | CP.PCM.PN ---
<Geraldo Pfeiffer - Last Filed: 08/16/17 09:37> Subjective - Date & Time of Evaluation Date of Evaluation: 08/16/17 Time of Evaluation: 07:10 - Subjective Subjective: PGY-[address] Arana Patient seen and examined at bedside. ROS unable to ascertain due to lethargy and altered mental state. Patient appeared uncomfortable and utilizing accessory muscles. I am told by respiratory therapist and nurse that patient's family refused BiPAP. Patient currently on non-rebreather mask. Objective - Vital Signs/Intake and Output Vital Signs (last 24 hours): Temp Pulse Resp BP Pulse Ox 98 F 135 H 21 115/74 99 08/16/17 08:45 08/16/17 08:45 08/16/17 08:45 08/16/17 08:45 08/16/17 00:00 - Medications Medications: Current Medications Acetaminophen (Tylenol 650 Mg Supp) 650 mg WI Q4 PRN PRN Reason: Fever >100.4 F Acetaminophen (Tylenol 650 Mg Supp) 650 mg WI Q4 PRN PRN Reason: Fever >100.4 F Budesonide (Pulmicort Respules) 0.5 mg INH RQ12 [facility] Last Admin: 08/15/17 20:04 Dose: 0.5 mg Hydromorphone HCl (Dilaudid) 0.5 mg IVP Q2H PRN PRN Reason: Pain, severe (8-10) Levetiracetam 500 mg/ Sodium (Chloride) 105 mls @ 420 mls/hr IVPB Q12H [facility]AN Last Admin: 08/16/17 04:12 Dose: 420 mls/hr Lorazepam (Ativan) 1 mg IVP Q4H PRN PRN Reason: Anxiety Last Admin: 08/16/17 06:51 Dose: 1 mg Scopolamine (Transderm-Scop) 1 patch TD Q3D EVAN Last Admin: 08/14/17 14:50 Dose: 1 patch Scopolamine (Transderm-Scop) 1 patch TD Q3D EVAN Last Admin: 08/15/17 14:39 Dose: 1 patch - Constitutional Appears: Chronically Ill - Head Exam Head Exam: NORMAL INSPECTION Additional comments: on non-rebreather mask - Eye Exam Eye Exam: Normal appearance - ENT Exam ENT Exam: Mucous Membranes Moist - Respiratory Exam Respiratory Exam: Rales, Respiratory Distress - Cardiovascular Exam Cardiovascular Exam: Tachycardia, +S1, +S2 - GI/Abdominal Exam GI & Abdominal Exam: Soft, Normal Bowel Sounds - Neurological Exam Neurological Exam: Altered - Psychiatric Exam Additional comments: lethargic - Skin Skin Exam: Dry, Warm Assessment and Plan - Assessment and Plan (Free Text) Plan: 1). 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 CT Head 08/09/17 shows inferior Right Frontal Lobe 5 mm increased attenuation questionable for metastasis. MRI Brain with and without contrast was ordered but never performed due to patient condition. 08/09/17:Patient's sister Dedra [phone] was at bedside at the time of my exam, explains that the patient is being treated for this by Oncologist Dr. Tyrese Ward [place] [facility]. I called [facility] [phone] provided with [address] Tyrese Ward's phone number [phone], however this number is no longer in service and this is the same number that comes up for the him upon Google Search. Patient explains that his Brother Thuan [phone] has a copy of his Living Will/Advance Directive but patient could not provide details as to his wishes and when asked did not answer. I have asked Dedra to have Thuan bring in the copy of this document. 08/10/17: Extensive conversation with the patient today explaining all of his diagnosises as he asked what was happening with him. He asked if he was going to . I responded by telling him that his prognosis was very poor because of all that was going on with him and that the likelihood of him passing was high but that I could not predict when that would occur. I explained to him that he needed to think about what his wishes were and to the extent that he wanted treatment. He understands that Palliative Care Nurse will be speaking with him on 08/11/17. I also called and spoke with Sister Dedra [phone] and updated her as well and she informed me that there is NO living will as brother Thuan had checked and patient had the paperwork for it but he never completed it. 08/11/17: Palliative Care Consult with Nurse George and patient decided on DNR /DNI Consult with Oncologist Dr. Katiana Murray 2). Loculated Right Pleural Effusion Consult Medical Appointment Scheduler Dr. Bradford Vancomycin 750 mg IV Q24H Zosyn 3.375 gm IV Q6H Amikacin 500 mg IV Q24H Blood Culture 08/09/17 is negative to date Urine Culture did not show any growth Consult ID Dr. Meredith Melendez 3). Elevated Troponin/NSTEMI Could this be secondary to GA vs secondary to AF? Explained to patient and to sister that holding anticoagulation considering the possibility of causing hemorrhage in brain given findings on CT Head as well as secondary to Anemia Consult Sponge Buffer Dr. Teresa 2D Echocardiogram shows EF of 20%, moderate aortic stenosis, moderate to severe pulmonary HTN, LVSF is borderline, concentric hypertrophy 4). Seizure Secondary to possible metastasis to brain? This is certainly a possibility considering the patient's loss of consciousness and then waking up with loss of bowel and bladder control Consult Neurology Dr. Radhames Esparza 500 mg PO 2x/day 5). Atrial Fibrillation Sister Dedra does not know whether patient has a history of this or not and patient could not provide information as when asked he would not answer NO full anticoagulation (other than ASA) for reason mentioned in Assessment and Plan #3 6). Bilateral Leg Edema Bilateral Venous Duplex 08/09/17 is negative for DVT As per admitting H&P patient has history of Right Leg DVT 7). Hypotension Patient was on Dopamine 4 mcg/kg/min for pressure support 8). Respiratory Distress Patient refused BiPAP while in the ICU Pulmicort 0.5 mg INH Q12H 9). Hx of HTN Metoprolol 25 mg PO 2x/day is placed on HOLD considering the Hypotension. 10). Prophylaxis ASA 81 mg PO 1x/day Protonix 40 mg PO 1x/day Toradol 15 mg IV Q6H PRN Moderate Pain Morphine 1 mg IV Q4H PRN Severe Pain Heparin 5,000 Units SC Q8H Per Vel Rodriguez from [facility] recommendations, following orders were placed for In-Patient Hospice: Dilaudid 0.5 mg IV Q2H PRN Severe Pain Ativan 1 gm IV Q4H Acetaminophen 650 mg WI Q4H PRN Fever Dulcolax 10mg WI PRN Constipation Scopalamine Patch Q72H Diet as tolerated Vital Q8H DNR/DNI Kepra 500 mg IV Q12H Pulmicort 0.5 mg INH Q12H Will discuss case with Dr. Yasmeen Pfeiffer PGY-1 <Tyrese Arana - Last Filed: 08/17/17 13:59> Objective - Vital Signs/Intake and Output Vital Signs (last 24 hours): Temp Pulse Resp BP Pulse Ox 98.1 F 130 H 24 101/59 L 99 08/16/17 18:00 08/16/17 18:00 08/16/17 18:00 08/16/17 18:00 08/16/17 18:00 Attending/Attestation - Attestation I have personally seen and examined this patient.: Yes I have fully participated in the care of the patient.: Yes I have reviewed all pertinent clinical information, including history, physical exam and plan: Yes Notes (Text): continue current supportive care for hospice patient
[2017-08-16] MEDS: HYDROmorphone 0.5 mg/0.5 ml ISec IVP PRN ×2 (14:30→19:44)
--- NOTE | 2017-08-17 00:22 | CP.PCM.PRO ---
Pronouncement of Note - Clinical Findings Physical Exam: No Response Verbal/Painful Stimuli, Absent Peripheral Pulses{ Carotid & Femoral}, Absent Heart & Breath Sounds, No Pupillary Light Reflex, Pupils Fixed & Dilated - Pronouncement Time Time of Pronouncement of : 23:53 Additional Comments: Pronouncement: 08/16/17 at 23:53. Family at bedside. - N.Mao. Certificate [place]ED[place] Number: [id number]
--- NOTE | 2017-08-17 00:26 | CP.PCM.DIS ---
<Geraldo Pfeiffer - Last Filed: 08/17/17 11:22> Provider - Provider Date of Admission: 08/14/17 11:13 Attending physician: Isaak Ward MD Time Spent in preparation of Discharge (in minutes): 45 Diagnosis - Discharge Diagnosis (1) Transition from acute care to hospice Status: Acute (2) Hospice care Status: Acute (3) in hospice Status: Acute Hospital Course - Hospital Course Hospital Course: On admission: "67 year old male (PMHx of Right Lung CA being treated at [facility] by Oncologist Dr. Tyrese Ward) who was admitted on 08/09/17 for further treatment and evaluation after he lost conciousness at home with loss of bowel and bladder control. He was found to have Right Lung CA which was treated in the past by Oncologist Dr. Tyrese Ward at [facility]. He was evaluated by Hematology, Pulmonology, Neurology, and Infectious Disease. He was seen by Palliative Care and eventually decided on Hospice. He was discharged to in-patient hospice under [facility]. For full details, please see individual Assessment and Plans below. 1). 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 CT Head 08/09/17 shows inferior Right Frontal Lobe 5 mm increased attenuation questionable for metastasis. MRI Brain with and without contrast was ordered but never performed due to patient condition. 08/11/17: Palliative Care Consult with Nurse Vazquez and patient decided on DNR /DNI Consult with Oncologist Dr. Katiana Murray 2). Loculated Right Pleural Effusion Consult Showcase Maker Dr. Bradford Vancomycin 750 mg IV Q24H Zosyn 3.375 gm IV Q6H Amikacin 500 mg IV Q24H Blood Culture 08/09/17 negative Urine Culture negative Consult ID Dr. Meredith Melendez 3). Elevated Troponin/NSTEMI Could this be secondary to ME vs secondary to AF? Explained to patient and to sister that holding anticoagulation considering the possibility of causing hemorrhage in brain given findings on CT Head as well as secondary to Anemia Consult Embossograph Operator Dr. Teresa 2D Echocardiogram shows EF of 20%, moderate aortic stenosis, moderate to severe pulmonary HTN, LVSF is borderline, concentric hypertrophy 4). Seizure Secondary to possible metastasis to brain? This is certainly a possibility considering the patient's loss of consciousness and then waking up with loss of bowel and bladder control Consult Neurology Dr. Radhames Esparza 500 mg PO 2x/day 5). Atrial Fibrillation Sister Dedra does not know whether patient has a history of this or not and patient could not provide information as when asked he would not answer NO full anticoagulation (other than ASA) for reason mentioned in Assessment and Plan #3 6). Bilateral Leg Edema Bilateral Venous Duplex 08/09/17 is negative for DVT As per admitting H&P patient has history of Right Leg DVT 7). Hypotension Patient was on Dopamine 4 mcg/kg/min for pressure support 8). Respiratory Distress Patient refused BiPAP while in the ICU Pulmicort 0.5 mg INH Q12H 9). Hx of HTN Metoprolol 25 mg PO 2x/day is placed on HOLD considering the Hypotension. 10). 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 During this hospital course for inpatient hospice, [facility] provided recommendations for inpatient hospice which were implemented at [facility] during patient's stay. Patient's date and time of was 08/16/17 at 23:53. Family at bedside. Attending notified. [facility] Case #[id number] This is a summary of the hospital course. For more information, please refer to the medical records. Discharge Exam - Head Exam Head Exam: NORMAL INSPECTION - Eye Exam Eye Exam: absent: PERRL Pupil Exam: Fixed, Mydriatic. absent: PERRL Additional comments: Pupils fixed and dilated. No reaction to light. - ENT Exam ENT Exam: Mucous Membranes Dry - Neck Exam Additional comments: No carotid pulses appreciated on palpation. - Respiratory Exam Respiratory Exam: absent: NORMAL BREATHING PATTERN Additional comments: No breath sounds heard on auscultation - Cardiovascular Exam Additional comments: No cardiac sounds heard on auscultation - Extremities Exam Additional comments: No peripheral radial or femoral pulses appreciated on palpation. Discharge Plan - Follow Up Plan Condition: GOOD Disposition: WITH WITHOUT AUTOPSY <YasmeenTyrese - Last Filed: 08/17/17 14:00> Provider - Provider Date of Admission: 08/14/17 11:13 Attending physician: Isaak Ward MD Attending/Attestation - Attestation I have personally seen and examined this patient.: Yes I have fully participated in the care of the patient.: Yes I have reviewed all pertinent clinical information, including history, physical exam and plan: Yes Notes (Text): Had met family and expressed sympathy a day prior to .
[2017-08-17 01:22] VITALS: BP 101/59; PULSE 130; RESP 24; TEMP 98.1; O2SAT 99
== END 2017-08-17 03:31 | DRG 181 ==
LOC: C.5S 11:13
PROVIDERS: ADMIT Family Medicine; ATTEND Family Medicine
DX: C34.91 Malignant neoplasm of unspecified part of right bronchus or lung (principal); C79.31 Secondary malignant neoplasm of brain; I11.0 Hypertensive heart disease with heart failure; I50.9 Heart failure, unspecified; J98.11 Atelectasis; I48.91 Unspecified atrial fibrillation; I27.20 Pulmonary hypertension, unspecified; I35.0 Nonrheumatic aortic (valve) stenosis; R09.02 Hypoxemia; Z51.5 Encounter for palliative care; Z66 Do not resuscitate; Z87.891 Personal history of nicotine dependence